=== PATIENT | male | born 1940 | race Caucasian/White ===

== ENCOUNTER → 2019-04-18 06:57 | Outpatient (CLI) | payer MEDICARE, OTHER, SELFPAY ==
[2019-04-03 08:39] VITALS: BMI 29.6
[2019-04-18 08:23] LABS: Absolute Lymphocyte Count 2.52 X10^3/uL (0.83-4.51); Absolute Neutrophil Count 3.2 X10^3/uL (2.0-7.7); Basophil# 0.06 X10^3/uL; Basophil% 0.9 % (0-1); Eosinophil# 0.19 X10^3/uL; Eosinophils% 2.8 % (0-5); Hematocrit 44.2 % (40-54); Hemoglobin 14.4 g/dL (13.0-16.5); Lymphocyte # 2.52 X10^3/ul (4.0); Lymphocyte % 37.6 % (19-41); Mean Corp Hgb Conc 32.6 g/dL (32-36); Mean Corpuscular Hgb 27.8 pg (27.0-32.0); Mean Corpuscular Volume 85.3 fL (80-94); Mean Platelet Vol. 11.8 fl (6.2-12.0); Monocyte# 0.75 X10^3/uL; Monocyte% 11.2 % (0-10); NRBC Flagged by Analyzer 0 % (0-5); Neutrophil # 3.16 X10^3/uL (2.7-7.7); Neutrophil % 47.2 % (47-70); Platelet Count 168 K/mm3 (150-450); RBC Distribution Width CV 14.7 % (11.6-14.6); RBC Distribution Width SD 46.2 fl (35.1-43.9); Red Blood Count 5.18 M/mm3 (4.6-6.2); White Blood Count 6.7 K/mm3 (4.4-11.0)
[2019-04-18 09:08] LABS: ALB/GLOB Ratio 0.7 RATIO (0.9-2.4); AST(SGOT) 17 U/L (15-37); Alanine Aminotransfer ALT/SGPT 24 U/L (16-61); Albumin, Serum 3.6 g/dL (3.2-5.0); Alkaline Phosphatase 61 U/L (45-117); Anion Gap 7 (5-15); BUN 30 mg/dL (7-18); BUN/Creat Ratio 17.4 RATIO (10-20); Calcium,Total 8.8 mg/dL (8.5-10.1); Chloride 112 mmol/L (98-107); Cholesterol 160 mg/dL (200); Creatinine, Serum 1.72 mg/dL (0.70-1.30); EST Glomerular Filtration Rate 41 mL/min (>60); Est Glom Filt Rate - Afr Amer 50 mL/min (>60); Glucose 103 mg/dL (74-106); High Density Lipoprotein 56 mg/dL; Potassium 4.3 mmol/L (3.5-5.1); Protein, Total 8.6 g/dL (6.4-8.2); Sodium Level 143 mmol/L (136-145); Triglycerides 45 mg/dL; Very Low Density Lipoprotein 9 mg/dL (5-40)
== END ==
PROVIDERS: PCP Family Medicine; Referring Provider Physician Assistant Medical; Visit Provider Physician Assistant Medical
DX: I10 Essential (primary) hypertension (principal); E78.00 Pure hypercholesterolemia, unspecified; I25.810 Atherosclerosis of coronary artery bypass graft(s) without angina pectoris
CPT/HCPCS: 36415; 80053; 80061; 85025

== ENCOUNTER 2019-07-22 13:29 | Inpatient (IN) | payer MEDICARE, OTHER, SELFPAY ==
[2019-04-03 08:39] VITALS: BMI 29.6
[2019-07-22] VITALS (19 sets, daily range): BP systolic 81–153; BP diastolic 49–80; PULSE 64–99; RESP 16–98; TEMP 37.7–42.1; O2SAT 90–98; BMI 27.4; BMI 28.1; BMI 28.2
--- NOTE | 2019-07-22 13:33 | RAD_ITS ---
STUDY: X-RAY CHEST REASON FOR EXAM: Male, 78 years old. Fever. Confusion. TECHNIQUE: Frontal view of the chest COMPARISON: 01/12/2013 FINDINGS: The lungs are clear. There are no pleural effusions. There is no pneumothorax. The heart is enlarged, but stable. There is a pacemaker in place. The patient is status post sternotomy. The visualized osseous structures are within normal limits. RAD/Chest 1 View (Portable) IMPRESSION: No acute thoracic pathology. Electronically Signed: Siddhartha Fairbanks, at 14:56 EDT Tel , Service support ,
--- NOTE | 2019-07-22 13:33 | EKG12_ITS ---
Test Reason : CONFUSION Blood Pressure : / mmHG Vent. Rate : 092 BPM Atrial Rate : 092 BPM P-R Int : 176 ms QRS Dur : 140 ms QT Int : 384 ms P-R-T Axes : 010 -51 056 degrees QTc Int : 474 ms Normal sinus rhythm with sinus arrhythmia Left axis deviation Right bundle branch block Inferior infarct , age undetermined Anterolateral infarct , age undetermined Abnormal ECG Confirmed by AMBERLY MAX, NINA ([id number]), editorial project manager WERO NI ([id number]) on 07/25/2019 10:52:34 AM Referred By: IVÁN Confirmed By:NINA GAMING MD
[2019-07-22 13:48] LABS: Absolute Lymphocyte Count 0.61 X10^3/uL (0.83-4.51); Absolute Neutrophil Count 3.9 X10^3/uL (2.0-7.7); Basophil# 0.02 X10^3/uL; Basophil% 0.4 % (0-1); Eosinophil# 0.01 X10^3/uL; Eosinophils% 0.2 % (0-5); Hematocrit 43.5 % (40-54); Lymphocyte # 0.61 X10^3/ul (4.0); Lymphocyte % 13.3 % (19-41); Mean Corp Hgb Conc 32.2 g/dL (32-36); Mean Corpuscular Hgb 28.2 pg (27.0-32.0); Mean Corpuscular Volume 87.5 fL (80-94); Mean Platelet Vol. 11.2 fl (6.2-12.0); Monocyte# 0.03 X10^3/uL; Monocyte% 0.7 % (0-10); NRBC Flagged by Analyzer 0 % (0-5); Neutrophil # 3.88 X10^3/uL (2.7-7.7); Neutrophil % 84.7 % (47-70); Platelet Count 121 K/mm3 (150-450); RBC Distribution Width CV 15.2 % (11.6-14.6); Red Blood Count 4.97 M/mm3 (4.6-6.2); White Blood Count 4.6 K/mm3 (4.4-11.0)
[2019-07-22 13:49] LABS: Mucous, Urine 0 SEEN /hpf (<or=2+); Squamous Epithelial Cells - UA 0 SEEN /hpf (0-5)
[2019-07-22] MEDS: Acetaminophen 500 MG Tablet 1000 MG PO (13:51)
[2019-07-22] MEDS: 0.9% Normal Saline 1,000 ML 250 ML IV ×2 (13:51→18:28)
--- NOTE | 2019-07-22 13:51 | ED.VIS.GEN ---
History of Present Illness Chief Complaint: Confusion Informant: Patient Onset: Today Context: Sudden Onset - since this AM Timing: Continuous Quality: disoriented Current Severity: Mild Maximum Severity: Severe Worsened by: unk Relieved by: nothing in particular Associated Symptoms: chills, malaise/gen weakness, chronic dysuria/urgency Narrative: Patient presents with disorientation that started today, found to have a fever in triage but none known prior to now. States he has been on antibiotics for about 2 weeks for urinary tract infection which he has had in the past. States he has chronic dysuria and urgency, none of that is different in the last couple weeks but he saw his doctor and was diagnosed with a UTI. States he went to the lab to have his blood drawn last week and he did not have a fever there. He denies any respiratory symptoms or sore throat, neck pain, earache, back pain. No nausea or vomiting but he did have diarrhea yesterday once or twice. History is somewhat limited since there is no one with him currently. Apparently, he has been from his for decades, but they visit with each other frequently and he did this this morning. She brought to his attention that he was disoriented and should go to the hospital, however when he got into the car, he forgot how to work it, and she does not drive. Somehow, they got themselves to the emergency department safely since he did not arrive by ambulance. We looked up his filled prescriptions here in the emergency department, it appears that he last filled the antibiotic nitrofurantoin, on 07/10/2019. - Past Medical History (1) Atherosclerosis of coronary artery bypass graft(s) without angina pectoris Status: Chronic Comment: CABG: ROBINS to LAD, SVG to diag 1, SVG to RCA 01/17/2013. (2) Essential hypertension Status: Chronic (3) ICD (implantable cardioverter-defibrillator), dual, in situ Status: Chronic (4) Ischemic cardiomyopathy Status: Chronic Comment: EF 55% 2013 (5) Old myocardial infarction Status: Chronic (6) Pure hypercholesterolemia Status: Chronic (7) TIA on medication Status: Chronic Past Medical History - Allergies and Home Meds Allergies/Adverse Reactions: Allergies Ivapqvj-Tsi-Doq Reductase Inhibitor Adverse Reaction (Verified 04/03/19 08:46) numbness, myalgias Primary Care Physician: Grayson Gentile MD [Primary Care Provider] - Surgical History: appendectomy, coronary bypass surgery Lives: Alone Smoking Status: Former smoker Drugs: None Review of Systems General: Reports: Chills, Malaise. Denies: Fever, Sweats Eyes: Denies: Visual changes - bilaterally, Diplopia ENT: Denies: Bilateral ear pain, Rhinorrhea, Sore throat Cardiovascular: Denies: Chest pain, Palpitations Respiratory: Denies: Dyspnea, Cough, Dyspnea on exertion, Orthopnea Gastrointestinal: Reports: Diarrhea. Denies: Abdominal pain, Nausea, Vomiting, Melena, Hematochezia Genitourinary: Reports: Dysuria, Hematuria - off and on, - - urgency, - - no urinary retention. Denies: Frequency Musculoskeletal: Denies: Myalgias, Neck pain, Back pain, Swelling, Extremity Pain Skin: Denies: Rash, Wounds Neurological: Denies: Headache, Weakness, Numbness Physical Exam Vital Signs/Narrative: Vital Signs Temp Pulse Resp BP Pulse Ox 07/22/19 13:46 96 22 H 135/70 H 96 07/22/19 13:35 95 07/22/19 13:30 102.7 F H 96 29 H 153/80 H 95 Inital Vital Signs reviewed: Yes General: Well nourished, Well developed, No Acute Distress Head: Normocephalic, Atraumatic Eyes: Perrl, EOMI ENT: Moist mucous membranes, No rhinorrhea, TM's clear, - - POP clear Neck: Supple, Nontender, No lymphadenopathy, No JVD Cardiovascular: Regular rate, Regular rhythm, No murmurs Respiratory: No distress, CTA bilaterally, Chest nontender Abdomen: Soft, Nontender, Nondistended, Normal bowel sounds, Ventral hernia, Hernia reducible - and nontender, non-erythemetous Back: Nontender, Normal Inspection. Negative for: CVA tenderness Extremities: Nontender, No edema. Negative for: Calf Tenderness Skin: Normal color, No rash, No Trauma Neurological: Alert - keenly. conversive., Cranial nerves II-XII grossly intact, Normal Strength, Normal Sensation, Disoriented - to month only; otherwise, oriented Psychological: Normal affect, Normal Mood Diagnostic/Tx/Re-eval Laboratory Tests 07/22/19 07/22/19 07/22/19 Range/Units 13:40 13:35 13:35 WBC 4.6 (4.4-11.0) K/mm3 RBC 4.97 (4.6-6.2) M/mm3 Hgb 14.0 (13.0-16.5) g/dL Hct 43.5 (40-54) % MCV 87.5 (80-94) fL MCH 28.2 (27.0-32.0) pg MCHC 32.2 (32-36) g/dL RDW Std Deviation 48.0 H (35.1-43.9) fl RDW Coeff of Noel 15.2 H (11.6-14.6) % Plt Count 121 L (150-450) K/mm3 MPV 11.2 (6.2-12.0) fl Immature Gran % (Auto) 0.700 (0.0-0.9) % Neut % (Auto) 84.7 H (47-70) % Lymph % (Auto) 13.3 L (19-41) % [place] % (Auto) 0.7 (0-10) % Eos % (Auto) 0.2 (0-5) % Baso % (Auto) 0.4 (0-1) % Absolute Neuts (auto) 3.9 (2.0-7.7) X10^3/uL Absolute Lymphs (auto) 0.61 L (0.83-4.51) X10^3/uL Nucleated RBC % 0 (0-5) % PT 14.5 (11.7-14.9) SECONDS INR 1.2 APTT 31.9 (24.1-36.2) Seconds Sodium (136-145) mmol/L Potassium (3.5-5.1) mmol/L Chloride (98-107) mmol/L Carbon Dioxide (21.0-32.0) mmol/L Anion Gap (5-15) BUN (7-18) mg/dL Creatinine (0.70-1.30) mg/dL Estim Creat Clear Calc ml/min Est GFR (MDRD) Af Amer (>60) mL/min Est GFR (MDRD) Non-Af (>60) mL/min BUN/Creatinine Ratio (10-20) RATIO Glucose (74-106) mg/dL Calcium (8.5-10.1) mg/dL Total Bilirubin (0.20-1.00) mg/dL AST (15-37) U/L ALT (16-61) U/L Alkaline Phosphatase (45-117) U/L Troponin I (<0.045) ng/mL Total Protein (6.4-8.2) g/dL Albumin (3.2-5.0) g/dL Globulin (2.2-4.2) g/dL Albumin/Globulin Ratio (0.9-2.4) RATIO Urine Color Red (Yellow) Urine Clarity Cloudy (Clear) Urine pH 7.0 (5.0 - 8.0) Ur Specific [place] 1.010 (1.002-1.030) Urine Protein 100 H (Negative) mg/dl Urine Glucose (UA) Normal (Normal) mg/dl Urine Ketones 5 H (Negative) mg/dl Urine Occult Blood 250 H (Negative) /ul Urine Nitrite Negative (Negative) Urine Bilirubin Negative (Negative) mg/dL Urine Urobilinogen Normal (Normal) mg/dl Ur Leukocyte Esterase 500 H (Negative) /ul Urine RBC > 100 SEEN (0-5) /hpf Urine WBC >100 SEEN (0-5) /hpf Ur Squamous Epith Cells 0 SEEN (0-5) /hpf Urine Bacteria 4+ (None Seen) /hpf Urine Mucus 0 SEEN (<or=2+) /hpf 07/22/19 Range/Units 13:35 WBC (4.4-11.0) K/mm3 RBC (4.6-6.2) M/mm3 Hgb (13.0-16.5) g/dL Hct (40-54) % MCV (80-94) fL MCH (27.0-32.0) pg MCHC (32-36) g/dL RDW Std Deviation (35.1-43.9) fl RDW Coeff of Noel (11.6-14.6) % Plt Count (150-450) K/mm3 MPV (6.2-12.0) fl Immature Gran % (Auto) (0.0-0.9) % Neut % (Auto) (47-70) % Lymph % (Auto) (19-41) % [place] % (Auto) (0-10) % Eos % (Auto) (0-5) % Baso % (Auto) (0-1) % Absolute Neuts (auto) (2.0-7.7) X10^3/uL Absolute Lymphs (auto) (0.83-4.51) X10^3/uL Nucleated RBC % (0-5) % PT (11.7-14.9) SECONDS INR APTT (24.1-36.2) Seconds Sodium 140 (136-145) mmol/L Potassium 4.0 (3.5-5.1) mmol/L Chloride 111 H (98-107) mmol/L Carbon Dioxide 22.0 (21.0-32.0) mmol/L Anion Gap 7 (5-15) BUN 19 H (7-18) mg/dL Creatinine 1.71 H (0.70-1.30) mg/dL Estim Creat Clear Calc 42.55 ml/min Est GFR (MDRD) Af Amer 50 L (>60) mL/min Est GFR (MDRD) Non-Af 41 L (>60) mL/min BUN/Creatinine Ratio 11.1 (10-20) RATIO Glucose 86 (74-106) mg/dL Calcium 8.5 (8.5-10.1) mg/dL Total Bilirubin 1.00 (0.20-1.00) mg/dL AST 17 (15-37) U/L ALT 20 (16-61) U/L Alkaline Phosphatase 70 (45-117) U/L Troponin I < 0.015 (<0.045) ng/mL Total Protein 8.7 H (6.4-8.2) g/dL Albumin 3.5 (3.2-5.0) g/dL Globulin 5.2 H (2.2-4.2) g/dL Albumin/Globulin Ratio 0.7 L (0.9-2.4) RATIO Urine Color (Yellow) Urine Clarity (Clear) Urine pH (5.0 - 8.0) Ur Specific [place] (1.002-1.030) Urine Protein (Negative) mg/dl Urine Glucose (UA) (Normal) mg/dl Urine Ketones (Negative) mg/dl Urine Occult Blood (Negative) /ul Urine Nitrite (Negative) Urine Bilirubin (Negative) mg/dL Urine Urobilinogen (Normal) mg/dl Ur Leukocyte Esterase (Negative) /ul Urine RBC (0-5) /hpf Urine WBC (0-5) /hpf Ur Squamous Epith Cells (0-5) /hpf Urine Bacteria (None Seen) /hpf Urine Mucus (<or=2+) /hpf - Rhythm Strip Rhythm Strip: Sinus Rhythm Rate: 90 Ectopy: None - EKG Initial EKG Interpretation: Sinus Rhythm, No Acute Injury Pattern, RBBB Prior: No Prior - none able to be obtained - Medical Decision Making Patient was treated with IV fluids and Tylenol. After seeing his urine which appears to be the source of his fever, it grossly appeared purulent, Rocephin is added. Blood cultures and urine cultures were sent. Since he has been on antibiotics and apparently failing them, and lives alone and is mildly delirious, plan is for admission to continue treatment and monitoring. Lactate returned within normal limits at 1.8. Chronic renal insufficiency is noted, similar creatinine that he had 4 months ago. ED Disposition - Plan for ED Patient: Disposition: Acute Care Hospital [facility] Diagnosis: Urinary tract infection, Failure of outpatient treatment, Delirium due to another medical condition, Chronic renal insufficiency, Sepsis due to urinary tract infection Referrals: Grayson Gentile MD [Primary Care Provider] -
[2019-07-22 13:54] LABS: Color, Urine Red (Yellow); Glucose, Dipstick Normal (Normal); Ketone-Dipstick 5 mg/dl (Negative); Leukocyte Esterase-Dipstick 500 /ul (Negative); Nitrite-Dipstick Negative (Negative); Occult Blood-Urine 250 /ul (Negative); Protein-Dipstick 100 mg/dl (Negative); Urine Bilirubin Dipstick Negative (Negative); Urine Clarity Cloudy (Clear); Urine Urobilinogen Normal (Normal)
[2019-07-22 13:56] LABS: International Normalized Ratio 1.2; Partial Thromboplast Time 31.9 Seconds (24.1-36.2); Prothrombin Time (Protime)PT. 14.5 SECONDS (11.7-14.9)
[2019-07-22 14:06] LABS: ALB/GLOB Ratio 0.7 RATIO (0.9-2.4); AST(SGOT) 17 U/L (15-37); Alanine Aminotransfer ALT/SGPT 20 U/L (16-61); Albumin, Serum 3.5 g/dL (3.2-5.0); Alkaline Phosphatase 70 U/L (45-117); Anion Gap 7 (5-15); BUN 19 mg/dL (7-18); BUN/Creat Ratio 11.1 RATIO (10-20); Calcium,Total 8.5 mg/dL (8.5-10.1); Chloride 111 mmol/L (98-107); Creatinine, Serum 1.71 mg/dL (0.70-1.30); EST Glomerular Filtration Rate 41 mL/min (>60); Est Glom Filt Rate - Afr Amer 50 mL/min (>60); Estimated Creatinine Clearance 42.55 ml/min; Globulin 5.2 g/dL (2.2-4.2); Glucose 86 mg/dL (74-106); Protein, Total 8.7 g/dL (6.4-8.2); Sodium Level 140 mmol/L (136-145)
[2019-07-22 14:08] LABS: White Blood Cells >100 SEEN /hpf (0-5)
[2019-07-22 14:09] LABS: Bacteria 4+ /hpf (None Seen); Red Blood Cells-Urine > 100 SEEN /hpf (0-5)
[2019-07-22 14:38] LABS: Lactic Acid 1.8 mmol/L (0.4-1.9)
--- NOTE | 2019-07-22 14:44 | HP.PCM_ITS ---
History of Present Illness Date of Admission: 07/22/19 Chief Complaint: fever, chills, The patient is a 78 year old M with an extensive past medical history as outlined which includes CAD status post CABG, hypertension and ischemic cardiomyopathy as well as hyperlipidemia. He was admitted through the ED on 07/22/2019 with a complaint of fever and chills as well as malaise and confusion. Patient says he has been having burning with urination for the past few days and so called his primary care doctor. He had nitrofurantoin called in for him and patient states he has been compliant with his medication. However on the day before presentation, patient states he became very febrile and had associated chills. He also felt very weak. He went to the house of his ex- because he was not feeling well, and she told him to come to the hospital. However when patient got into his car, he was too confused to operate his car. His ex- managed to get him to the emergency room. On arrival in the ED, his temperature was 102.7 and he was tachypneic breathing up to 29 breaths/min. Pulse rate was 96 and initial blood pressure was 153/80 though this came down to 113/67. Labs done showed creatinine of 1.71. BMP was otherwise unremarkable. CBC showed white cell count of 4.6 and urinalysis showed bacteria 4+ with WBC more than 100 and leukocyte esterase more than 500. Chest x-ray showed no acute cardiopulmonary process and EKG done showed normal sinus rhythm with sinus arrhythmia. He has been admitted to be managed for sepsis due to UTI. Urine cultures were obtained in the ED as well as blood cultures and he was started on IV ceftriaxone. [] Past Medical History Past Medical History (Chronic Problems): Chronic Problems (Last Reviewed 04/03/19 @ 09:22 by HUNTER Dumont) Chronic renal insufficiency (Chronic) Pure hypercholesterolemia (Chronic) Essential hypertension (Chronic) ICD (implantable cardioverter-defibrillator), dual, in situ (Chronic) Personal history of sudden cardiac arrest (Chronic) Old myocardial infarction (Chronic) Ischemic cardiomyopathy (Chronic) EF 55% 2013 Automatic implantable cardiac defibrillator in situ (Chronic 01/23/13) Atherosclerosis of coronary artery bypass graft(s) without angina pectoris (Chronic) CABG: ROBINS to LAD, SVG to diag 1, SVG to RCA 01/17/2013. 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 HTN (hypertension) (Inactive) I10 Allergies Ahcwlhy-Hcr-Sic Reductase Inhibitor Adverse Reaction (Verified 04/03/19 08:46) numbness, myalgias Home Medications: Ambulatory Orders Medication Instructions Recorded Aspirin [Aspirin, Baby] 81 mg PO DAILY@0800 01/10/13 carvedilol 6.25 mg tablet 6.25 mg PO BID #180 tab 04/03/19 eplerenone 25 mg tablet 25 mg PO QDAY #90 tab 04/03/19 lisinopril 5 mg tablet 5 mg PO QDAY #90 tab 04/03/19 Surgical History: Surgical History (Last Reviewed 04/03/19 @ 09:22 by HUNTER Dumont) ICD (implantable cardioverter-defibrillator), dual, in situ (Chronic) Z95.810 Hx of CABG (Resolved) Onset Date: ~01/17/13 Z95.1 CABG: ROBINS to LAD, SVG to diag 1, SVG to RCA 01/17/2013. Automatic implantable cardiac defibrillator in situ (Chronic) Onset Date: 01/23/13 Z95.810 History of left heart catheterization (LHC) Z98.890 01/11/2013 Surgical History: appendectomy, coronary bypass surgery Psychiatric History: No pertinent psych hx Lives: Alone Smoking Status: Former smoker Drugs: None Review of Systems Constitutional: Reports: Chills, Fever, Malaise, Weakness, Fatigue. Denies: Anorexia Eyes: Denies: Blurred vision HEENT: Denies: Head Aches, Sinus Congestion, Sinus Drainage Cardiovascular: Denies: Chest Pain, Palpitations Respiratory: Denies: Cough, Shortness of Breath, Shortness of breath at rest, Shortness of breath upon exertion, Sputum production Gastrointestinal: Denies: Abdominal Pain, Nausea, Vomiting Genitourinary: Reports: Dysuria, Frequency. Denies: Hesitancy, Incontinence, Nocturia, Retention, Urgency Musculoskeletal: Denies: Joint Pain, Joint Tenderness Skin: Denies: Rash, Wounds Neurological: Denies: Numbness, Tingling, Focal weakness Psychiatric: Denies: Anxiety, Depression, Homicidal Ideations, Suicidal Ideations Hematologic/ Lymphatic: Denies: Easy Bruising, Easy Bleeding VTE Information - Inpt Only VTE Present on Admission: No VTE Pharm Prophylaxis ordered?: Yes Patient Problems: Active and Suspected Problems (Last Reviewed 04/03/19 @ 09:22 by HUNTER Dumont) Urinary tract infection (Acute) Failure of outpatient treatment (Acute) Delirium due to another medical condition (Acute) Sepsis due to urinary tract infection (Acute) - Physical Exam Vitals/I&O's: Vital Signs Temp Pulse Resp BP Pulse Ox 102.7 F H 96 22 H 135/70 H 96 07/22/19 13:30 07/22/19 13:46 07/22/19 13:46 07/22/19 13:46 07/22/19 13:46 Oxygen Delivery Method Room Air Weight: 219 lb 9.286 oz Body Mass Index (BMI) 27.4 General: Alert, Oriented x3, Cooperative HEENT: Atraumatic, PERRLA, EOMI, Normocephalic Oral: Dry Mucosa Neck: Supple, No JVD, Negative Carotid Bruits Lungs: Clear to auscultation, Normal air movement, No rhonchi, No wheeze Cardiovascular: Regular rate, Regular Rhythm, Normal S1, Normal S2, No murmurs Abdomen: Bowel Sounds Present, Soft, Non Tender, Non-Distended, No Hepato- splenomegaly Extremities: No clubbing, No cyanosis, No edema, Capillary Refill Less than 3 Seconds Skin: No rashes, No breakdown Musculoskeletal: No Tenderness to Palpation of Joints or Extremities Lymphatic: No Cervical, Supraclavicular, or Inguinal Adenopathy Neurological: Cranial nerves II-XII grossly intact, Neuro grossly intact, Motor Exam 5/5 strength throughout Psych/Mental Status: Normal Affect, Appropriate, Alert and oriented to time, place, person, mood and affect Laboratory Results 07/22/19 13:35: Sodium 140, Potassium 4.0, Chloride 111 H, Carbon Dioxide 22.0, Anion Gap 7, BUN 19 H, Creatinine 1.71 H, Estim Creat Clear Calc 42.55, Est GFR (MDRD) Af Amer 50 L, Est GFR (MDRD) Non-Af 41 L, BUN/Creatinine Ratio 11.1, Glucose 86, Calcium 8.5, Total Bilirubin 1.00, AST 17, ALT 20, Alkaline Phosphatase 70, Troponin I < 0.015, Total Protein 8.7 H, Albumin 3.5, Globulin 5.2 H, Albumin/Globulin Ratio 0.7 L 07/22/19 13:35: WBC 4.6, RBC 4.97, Hgb 14.0, Hct 43.5, MCV 87.5, MCH 28.2, MCHC 32.2, RDW Std Deviation 48.0 H, RDW Coeff of Noel 15.2 H, Plt Count 121 L, MPV 11.2, Immature Gran % (Auto) 0.700, Neut % (Auto) 84.7 H, Lymph % (Auto) 13.3 L, [place] % (Auto) 0.7, Eos % (Auto) 0.2, Baso % (Auto) 0.4, Absolute Neuts (auto) 3.9, Absolute Lymphs (auto) 0.61 L, Nucleated RBC % 0 07/22/19 13:35: PT 14.5, INR 1.2, APTT 31.9 07/22/19 13:40: Urine Color Red, Urine Clarity Cloudy, Urine pH 7.0, Ur Specific [place] 1.010, Urine Protein 100 H, Urine Glucose (UA) Normal, Urine Ketones 5 H , Urine Occult Blood 250 H, Urine Nitrite Negative, Urine Bilirubin Negative, Urine Urobilinogen Normal, Ur Leukocyte Esterase 500 H, Urine RBC > 100 SEEN, Urine WBC >100 SEEN, Ur Squamous Epith Cells 0 SEEN, Urine Bacteria 4+, Urine Mucus 0 SEEN 07/22/19 13:53: Lactic Acid 1.8 Diagnostic Data Chest X-Ray 07/22/19 13:33 IMPRESSION: No acute thoracic pathology. Electronically Signed: Siddhartha Fairbanks, at 14:56 EDT Tel , Service support , Current Medications Sodium Chloride () 1,000 mls @ 250 mls/hr IV .Q4H CLAUDETTE Last Admin: 07/22/19 13:51 Dose: 250 mls/hr Documented by: Ceftriaxone Sodium (Rocephin) 1 gm in 50 mls @ 100 mls/hr IV X1 ONE Stop: 07/22/19 14:58 Assessment/Plan All Active Problems (Last Reviewed 04/03/19 @ 09:22 by HUNTER Dumont) Urinary tract infection (Acute) Failure of outpatient treatment (Acute) Delirium due to another medical condition (Acute) Sepsis due to urinary tract infection (Acute) Hx of CABG (Resolved ~01/17/13) DU (duodenal ulcer) (Resolved) TIA (transient ischemic attack) (Resolved) 89-year-old male admitted with a complaint of fever and chills and frequency of urination as well as burning. 1. Sepsis due to UTI * SIRS criteria is 2/4- fever and tachypnea * admit to PCU with telemetry * URine culture and blood culture pending * IV normal saline 150cc/hr * check serum lactic acid * started on IV ceftriaxone in the ED; will continue * 2. CAD s/p CABG: On aspirin and carvedilol. 3. Hypertension: On lisinopril, eplerenone and carvedilol. 4. CKD stage III: Creatinine is 1.71. Creatinine from earlier in March 2019 showed creatinine of 1.72. Will hydrate gently and monitor. DVT prophylaxis: Lovenox CODE STATUS: Full code * Patient counseled extensively about different types of CODE STATUS including full code, DNR CCA and DNR CCA. Patient elects to be full code. * Total [id number] time 16 minutes. Inpatient E&M: 06417 Init Hosp L3
[2019-07-22] MEDS: Ceftriaxone 1 GM/50 ML BAG IV (14:55)
--- NOTE | 2019-07-22 14:59 | NURSING ---
PCU KORAM SEPSIS DUE TO UTI, DELIRIUM, FAILURE OF OUTPT TX
[2019-07-22 17:06] LABS: Lactic Acid 1.2 mmol/L (0.4-1.9)
[2019-07-22] MEDS: Acetaminophen 325 MG Tablet 650 MG PO (19:36)
[2019-07-22] MEDS: LORazepam 2 MG/ML Syringe (21:21)
--- NOTE | 2019-07-22 21:30 | NURSING ---
Called report to [facility]
--- NOTE | 2019-07-22 21:37 | PCM.RRT.BLA ---
Rapid Response Note - Blank Rapid response: Patient with confusion; word salad; jerking movements; ripped IV out. Reportedly his temperature was 106F Patient alert but confused. vomiting S1, S2 present; tachycardia Tachypnea; LCTA Abdomen; non tender; bowel sounds present Impression: Acute Encephalopathy; Sepsis. Get stat CXR; Get KUB. Stop ceftriaxone. Start VANCO and Zosyn Transfer to ICU and put on cooling blanket CBC, BMP and lactic acid Consult construction stonemason Get COVID test
--- NOTE | 2019-07-22 22:00 | NURSING ---
Call and updated ex Corina on patient being transferred to ICU-she plans to call in am
[2019-07-22 22:36] LABS: Bedside Glucose 95 mg/dL (70-110)
[2019-07-22] MEDS: 0.9% Normal Saline 1,000 ML 1000 ML IV (22:40)
--- NOTE | 2019-07-22 22:55 | EKG12_ITS ---
Test Reason : Blood Pressure : / mmHG Vent. Rate : 086 BPM Atrial Rate : 086 BPM P-R Int : 186 ms QRS Dur : 146 ms QT Int : 380 ms P-R-T Axes : -06 -49 105 degrees QTc Int : 454 ms Normal sinus rhythm with sinus arrhythmia Left axis deviation Right bundle branch block Inferior infarct (cited on or before 10-JAN-2013) Anterolateral infarct (cited on or before 10-JAN-2013) Confirmed by AMBERLY MAX, NINA ([id number]), design editor WERO NI ([id number]) on 07/25/2019 11:41:33 AM Referred By: OWEN Confirmed By:NINA GAMING MD
--- NOTE | 2019-07-22 22:57 | RAD_ITS ---
STUDY: X-RAY - ABDOMEN/PELVIS REASON FOR EXAM: Male, 78 years old. Sepsis. Fever. UTI. TECHNIQUE: Two AP supine views of the abdomen and pelvis. COMPARISON: None. FINDINGS: There are bibasilar infiltrates. Is evidence of median sternotomy. Pacer leads are seen overlying the heart. There is an unremarkable bowel gas pattern. There is no small bowel dilatation or evidence for obstruction. Thought to be a rectal catheter. Cholecystectomy clips about the GE junction. There is no demonstrated free abdominal air. The visualized liver, spleen and kidneys are grossly normal in size and morphology. Normal soft tissue structures. There are diffuse degenerative changes of the visualized lumbar spine. RAD/Abdomen Single View (Portable) IMPRESSION: No evidence of acute intra-abdominal process. Electronically Signed: Dev Maloney DO at 23:30 EDT Tel [phone], Service support ,
--- NOTE | 2019-07-22 22:57 | RAD_ITS ---
STUDY: X-RAY CHEST REASON FOR EXAM: Male, 78 years old. Fever of 107. UTI. Sepsis. Seizure. TECHNIQUE: Single AP portable view of the chest. COMPARISON: Chest, July 22, 2019 (1404 hours) FINDINGS: There is a decreased inspiratory effort. There is infiltrate versus atelectasis at both lung bases. There is no demonstrated pleural abnormality. Stable cardiomegaly. Again seen is evidence of median sternotomy. Stable cardiac pacemaker/ICD. Normal mediastinum and ginny. Normal visualized pulmonary arteries. There is atherosclerotic calcification of the aortic arch with tortuosity. The thoracic spine is obscured by the mediastinum. There is degenerative osteoarthritis of the bilateral shoulders. There is no demonstrated abnormality of the visualized soft tissue structures of the upper abdomen. RAD/Chest 1 View (Portable) IMPRESSION: Decreased inspiratory effort with atelectasis versus infiltrate at the lung bases. The study is otherwise unchanged. Electronically Signed: Dev Maloney DO at 23:31 EDT Tel [phone], Service support ,
--- NOTE | 2019-07-22 23:05 | PCM.RX.CS ---
Consult Pharmacy has been consulted to manage selected antiobiotic: Vancomycin Type of Consult: New start Suspected Infection: Sepsis Prior Doses of Antibiotics Received/Current Regimen: Medications Vancomycin HCl 750 mg/ Sodium (Chloride) 265 mls @ 250 mls/hr IV Q12H CLAUDETTE Vancomycin HCl 1,500 mg/ (Sodium Chloride) 530 mls @ 250 mls/hr IV X1 ONE Stop: 07/23/19 00:07 Last Admin: 07/22/19 22:44 Dose: 250 mls/hr Weight used for dosin.3 kg Estimated Creatinine Clearance: 42.6 Goal Trough: 15-20 mcg/mL Pharmacy Plan for Drug Dosing: Pharmacy Service will continue to monitor and adjust dosing as required. Follow-Up Labs: Trough Vancomycin Labs to be done on [date and time ordered]: 07/24/19 @1000
[2019-07-22 23:15] LABS: Anion Gap 10 (5-15); BUN 28 mg/dL (7-18); BUN/Creat Ratio 12.6 RATIO (10-20); Calcium,Total 8.2 mg/dL (8.5-10.1); Chloride 112 mmol/L (98-107); Creatinine, Serum 2.23 mg/dL (0.70-1.30); EST Glomerular Filtration Rate 30 mL/min (>60); Est Glom Filt Rate - Afr Amer 37 mL/min (>60); Estimated Creatinine Clearance 32.63 ml/min; Glucose 109 mg/dL (74-106); Sodium Level 140 mmol/L (136-145)
[2019-07-23] VITALS (54 sets, daily range): BP systolic 71–179; BP diastolic 43–148; PULSE 60–103; RESP 12–34; TEMP 36–39.7; O2SAT 91–100
[2019-07-23 00:19] LABS: Procalcitonin 30.39 ng/mL (0.00-0.09)
[2019-07-23] MEDS: 0.9% Normal Saline 1,000 ML 1000 ML IV ×2 (01:00)
[2019-07-23] MEDS: Acetaminophen 650 MG Suppository RECTAL ×2 (02:00→17:29)
[2019-07-23 02:52] LABS: Reflex Lactate? Y
[2019-07-23 02:53] LABS: Lactic Acid 6.2 mmol/L (0.4-1.9)
--- NOTE | 2019-07-23 03:00 | CPS ---
pt dropping in the 80's on 6L NC. Pt placed on HFNC and SpO2 still in the high 80's on 15L. Pt tolerated bilevel well
[2019-07-23 03:09] LABS: Reflex Lactate? N
[2019-07-23 05:07] LABS: Absolute Lymphocyte Count 0.65 X10^3/uL (0.83-4.51); Absolute Neutrophil Count 9.9 X10^3/uL (2.0-7.7); Basophil# 0.03 X10^3/uL; Basophil% 0.3 % (0-1); Eosinophil# 0.07 X10^3/uL; Eosinophils% 0.6 % (0-5); Hematocrit 40.1 % (40-54); Hemoglobin 12.3 g/dL (13.0-16.5); Lymphocyte # 0.65 X10^3/ul (4.0); Lymphocyte % 5.9 % (19-41); Mean Corp Hgb Conc 30.7 g/dL (32-36); Mean Corpuscular Volume 91.3 fL (80-94); Mean Platelet Vol. 12.5 fl (6.2-12.0); Monocyte# 0.29 X10^3/uL; Monocyte% 2.6 % (0-10); NRBC Flagged by Analyzer 0 % (0-5); Neutrophil # 9.91 X10^3/uL (2.7-7.7); Neutrophil % 89.9 % (47-70); POSITIVE COUNT YES; POSITIVE MORPHOLOGY YES; Platelet Count 59 K/mm3 (150-450); RBC Distribution Width CV 15.5 % (11.6-14.6); RBC Distribution Width SD 51.8 fl (35.1-43.9); Red Blood Count 4.39 M/mm3 (4.6-6.2)
[2019-07-23 05:08] LABS: Differential Indicated SCAN CRITERIA MET
[2019-07-23 05:25] LABS: Anion Gap 9 (5-15); BUN 32 mg/dL (7-18); BUN/Creat Ratio 14.7 RATIO (10-20); Calcium,Total 7.5 mg/dL (8.5-10.1); Chloride 116 mmol/L (98-107); Creatinine, Serum 2.18 mg/dL (0.70-1.30); EST Glomerular Filtration Rate 31 mL/min (>60); Est Glom Filt Rate - Afr Amer 38 mL/min (>60); Estimated Creatinine Clearance 33.38 ml/min; Glucose 72 mg/dL (74-106); Potassium 3.5 mmol/L (3.5-5.1); Sodium Level 143 mmol/L (136-145)
[2019-07-23 05:28] LABS: Lactic Acid 4.4 mmol/L (0.4-1.9)
[2019-07-23 06:11] LABS: Differential Comment SCANNED; Reactive Lymphocyte RARE
[2019-07-23 07:51] LABS: M R Staph aureus DNA By PCR Negative (Negative); Probe Check PASS; Specimen Processing Control PASS
[2019-07-23] MEDS: Aspirin 300 MG Suppository RECTAL (08:09)
--- NOTE | 2019-07-23 08:41 | CON.PCM_ITS ---
Problem List (1) Urinary tract infection Status: Acute Qualifiers: Urinary tract infection type: acute pyelonephritis Qualified Code(s): N10 - Acute pyelonephritis (2) Delirium due to another medical condition Status: Acute (3) Chronic renal insufficiency Status: Chronic Qualifiers: Chronic kidney disease stage: stage 3 (moderate) Qualified Code(s): N18.3 - Chronic kidney disease, stage 3 (moderate) (4) Sepsis due to urinary tract infection Status: Acute (5) Essential hypertension Status: Chronic (6) ICD (implantable cardioverter-defibrillator), dual, in situ Status: Chronic (7) Personal history of sudden cardiac arrest Status: Chronic (8) Hx of CABG Status: Resolved Comment: CABG: ROBINS to LAD, SVG to diag 1, SVG to RCA 01/17/2013. (9) Ischemic cardiomyopathy Status: Chronic Comment: EF 55% 2013 (10) TIA on medication Status: Chronic (11) NSTEMI (non-ST elevated myocardial infarction) Status: Chronic Reason for Consult Date of Consultation: 07/23/19 Reason for Consultation: Septic shock, respiratory failure History of Present Illness: The patient is a 78 year old M, with past medical history listed below, who presented to [facility] on 07/22/2019 secondary to acute confusion in the morning. Patient reportedly had been on antibiotics for approximately 2 weeks for urinary tract infection and has chronic dysuria and urgency at baseline. Patient denied any respiratory symptoms such as sore throat, fever, chills, back pain or cough. No nausea or vomiting have been reported, but patient had been noticing loose bowel movements for the last day or 2. Patient is reportedly from his , but she was the one that had noted that he is disoriented. It is unclear, but it is assumed the patient was previously on nitrofurantoin for his UTI. In the ER, patient had an EKG showing sinus rhythm with right bundle branch block. Patient was treated with IV fluids and Tylenol and was noted to have purulent urine. Patient was given Rocephin. Pancultures were obtained. Lactate was within normal limits and creatinine was relatively unchanged compared to previous, so patient was admitted to the PCU for further evaluation. At approximately 9 PM last night, patient had significant confusion and jerking movements. Patient was noted to have a temperature of 106 ?F. Stat chest x-ray and KUB were obtained. Patient was transitioned to vancomycin and Zosyn. Patient was transferred to the intensive care unit with seizure precautions. Patient did receive Ativan for possible seizure activity. Patient also was noted to have some hypotension, but responded well to a 30 cc/kg fluid bolus. There was also some concern given his high fevers that patient may be COVID-19 positive despite lack of symptoms from a respiratory standpoint. Patient was placed in COVID precautions. This morning, patient had some significant desaturation requiring BiPAP rescue at approximately 3 AM. Patient responded to this well and saturations improved to acceptable levels on minimal BiPAP settings. Patient believes the BiPAP was helpful. Patient continues to have significant pelvic discomfort associated with the Romero catheter. Patient is not reporting any true abdominal pain, nausea or vomiting. Patient states he does not have a thermometer at home to check his temperature so he is unclear on how long this is been going on. Patient states he has had symptoms of his urinary tract infection for approximately a week from his perspective. Patient is not a very good historian, but can answer some yes and no questions. Patient was attempted off of BiPAP therapy this morning and desaturated to 75% on 4 L nasal cannula. Review of systems otherwise negative from a constitutional, HEENT, respiratory, cardiovascular, GI, genitourinary, musculoskeletal, skin, neurologic, psychiatric and hematologic system unless stated above. 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 HTN (hypertension) (Inactive) I10 Allergies Ntqzlhp-[id number]-Fkq Reductase Inhibitor Adverse Reaction (Verified 04/03/19 08:46) numbness, myalgias Home Medications: Ambulatory Orders Medication Instructions Recorded Aspirin [Aspirin, Baby] 81 mg PO DAILY@0800 01/10/13 carvedilol 6.25 mg tablet 6.25 mg PO BID #180 tab 04/03/19 eplerenone 25 mg tablet 25 mg PO QDAY #90 tab 04/03/19 lisinopril 5 mg tablet 5 mg PO QDAY #90 tab 04/03/19 Surgical History: Surgical History (Last Reviewed 04/03/19 @ 09:22 by HUNTER Dumont) ICD (implantable cardioverter-defibrillator), dual, in situ (Chronic) Z95.810 Hx of CABG (Resolved) Onset Date: ~01/17/13 Z95.1 CABG: ROBINS to LAD, SVG to diag 1, SVG to RCA 01/17/2013. Automatic implantable cardiac defibrillator in situ (Chronic) Onset Date: 01/23/13 Z95.810 History of left heart catheterization (LHC) Z98.890 01/11/2013 Surgical History: appendectomy, coronary bypass surgery Psychiatric History: No pertinent psych hx Lives: Alone Smoking Status: Former smoker Drugs: None Review of Systems Unable to obtain accurate/complete ROS d/t: See HPI Patient Problems: Active and Suspected Problems (Last Reviewed 04/03/19 @ 09:22 by HUNTER Dumont) Urinary tract infection (Acute) Failure of outpatient treatment (Acute) Delirium due to another medical condition (Acute) Sepsis due to urinary tract infection (Acute) Objective: Chest x-ray was personally reviewed and shows a possible right lower lobe infiltrate versus atelectasis. Patient's last recorded echocardiogram was in 2013 showing an EF of 55% with focal hypokinetic areas and ICD pacer. Right ventricular systolic pressure at that time was 29 mmHg. - Physical Exam Vitals/I&O's: Vital Signs Temp Pulse Resp BP Pulse Ox 36.9 C 69 20 H 86/66 L 98 07/23/19 08:00 07/23/19 08:00 07/23/19 08:00 07/23/19 08:00 07/23/19 08:00 Oxygen Flow Rate (L/min) 4 Oxygen Delivery Method Bi-pap Weight: 102.7 kg Body Mass Index (BMI) 28.1 Intake and Output for Last 24 Hours 07/21/19 07/22/19 07/23/19 23:59 23:59 23:59 Intake Total 2150 / 3150 2808 / 2808 Output Total 200 / 350 250 / 250 Balance 1950 / 2800 2558 / 2558 General: Alert, Cooperative, No apparent distress, Confused - Difficulty with more complex questions, - - Good BiPAP synchrony. HEENT: Atraumatic, PERRLA, EOMI, Normocephalic, - - No scleral icterus or injection noted Oral: No Gingival or Mucosal Lesions/ Ulcerations, Dry Mucosa Neck: Supple, No JVD, No Nodes, Trachea Midline Microbiology Past 72 Hours 07/22/19 13:53 Blood Culture (Wb) - Arm Left Blood Culture - Preliminary Laboratory Results 07/22/19 13:35: Sodium 140, Potassium 4.0, Chloride 111 H, Carbon Dioxide 22.0, Anion Gap 7, BUN 19 H, Creatinine 1.71 H, Estim Creat Clear Calc 42.55, Est GFR (MDRD) Af Amer 50 L, Est GFR (MDRD) Non-Af 41 L, BUN/Creatinine Ratio 11.1, Glucose 86, Calcium 8.5, Total Bilirubin 1.00, AST 17, ALT 20, Alkaline Phosphatase 70, Troponin I < 0.015, Total Protein 8.7 H, Albumin 3.5, Globulin 5.2 H, Albumin/Globulin Ratio 0.7 L 07/22/19 13:35: WBC 4.6, RBC 4.97, Hgb 14.0, Hct 43.5, MCV 87.5, MCH 28.2, MCHC 32.2, RDW Std Deviation 48.0 H, RDW Coeff of Noel 15.2 H, Plt Count 121 L, MPV 11.2, Immature Gran % (Auto) 0.700, Neut % (Auto) 84.7 H, Lymph % (Auto) 13.3 L, [place] % (Auto) 0.7, Eos % (Auto) 0.2, Baso % (Auto) 0.4, Absolute Neuts (auto) 3.9, Absolute Lymphs (auto) 0.61 L, Nucleated RBC % 0 07/22/19 13:35: PT 14.5, INR 1.2, APTT 31.9 07/22/19 13:40: Urine Color Red, Urine Clarity Cloudy, Urine pH 7.0, Ur Specific [place] 1.010, Urine Protein 100 H, Urine Glucose (UA) Normal, Urine Ketones 5 H , Urine Occult Blood 250 H, Urine Nitrite Negative, Urine Bilirubin Negative, Urine Urobilinogen Normal, Ur Leukocyte Esterase 500 H, Urine RBC > 100 SEEN, Urine WBC >100 SEEN, Ur Squamous Epith Cells 0 SEEN, Urine Bacteria 4+, Urine Mucus 0 SEEN 07/22/19 13:53: Lactic Acid 1.8 07/22/19 16:31: Lactic Acid 1.2 07/22/19 21:15: POC Glucose 95 07/22/19 21:53: COVID-19 (CASSIE) Pending 07/22/19 22:30: Sodium 140, Potassium 4.0, Chloride 112 H, Carbon Dioxide 18.0 L , Anion Gap 10, BUN 28 H, Creatinine 2.23 H, Estim Creat Clear Calc 32.63, Est GFR (MDRD) Af Amer 37 L, Est GFR (MDRD) Non-Af 30 L, BUN/Creatinine Ratio 12.6, Glucose 109 H, Calcium 8.2 L, Troponin I 0.297 H, C-React Prot Ext Range 69.90 H 07/22/19 22:30: Lactic Acid 4.0 H* 07/22/19 22:30: Procalcitonin 30.39 H 07/23/19 01:50: Troponin I 0.486 H 07/23/19 01:50: Lactic Acid 6.2 H* 07/23/19 04:50: WBC 11.0, RBC 4.39 L, Hgb 12.3 L, Hct 40.1, MCV 91.3, MCH 28.0, MCHC 30.7 L, RDW Std Deviation 51.8 H, RDW Coeff of Noel 15.5 H, Plt Count 59 L, MPV 12.5 H, Immature Gran % (Auto) 0.700, Neut % (Auto) 89.9 H, Lymph % (Auto) 5.9 L, [place] % (Auto) 2.6, Eos % (Auto) 0.6, Baso % (Auto) 0.3, Absolute Neuts (auto) 9.9 H, Absolute Lymphs (auto) 0.65 L, Nucleated RBC % 0, Differential Com ment SCANNED, Reactive Lymphocytes RARE 07/23/19 04:50: Sodium 143, Potassium 3.5, Chloride 116 H, Carbon Dioxide 18.0 L , Anion Gap 9, BUN 32 H, Creatinine 2.18 H, Estim Creat Clear Calc 33.38, Est GFR (MDRD) Af Amer 38 L, Est GFR (MDRD) Non-Af 31 L, BUN/Creatinine Ratio 14.7, Glucose 72 L, Calcium 7.5 L 07/23/19 04:50: Troponin I 0.596 H 07/23/19 04:50: MRSA (PCR) Negative 07/23/19 05:02: Lactic Acid 4.4 H* Current Medications Acetaminophen (Tylenol) 650 mg RECTAL Q6H PRN PRN PRN Reason: temperature > 100.7F Last Admin: 07/23/19 02:00 Dose: 650 mg Documented by: Aspirin (Aspirin) 300 mg RECTAL DAILY CLAUDETTE Last Admin: 07/23/19 08:09 Dose: 300 mg Documented by: Dextrose (D50w Syringe) 0 gm IV X1 PRN; Protocol PRN Reason: Hypoglycemia Glucagon () 1 mg IM .X1 PRN PRN Reason: Hypoglycemia Piperacillin Sod/Tazobactam (Sod 3.375 gm/ Sodium Chloride) 50 mls @ 12.5 mls/hr IV Q8@0200,1000,1800 [facility] Vancomycin IV Pharmacy to Dose (1 ea/ Sodium Chloride) 500 mls @ 250 mls/hr IV PRN PRN; Protocol PRN Reason: Rx to Dose Vancomycin HCl 750 mg/ Sodium (Chloride) 265 mls @ 250 mls/hr IV Q12H [facility] Morphine Sulfate () 2 mg IV Q3H PRN PRN PRN Reason: Pain Score 6-10/10 Ondansetron HCl (Zofran) 4 mg IV Q8H PRN PRN PRN Reason: NAUSEA/VOMITING Oxycodone HCl (Oxyir) 10 mg PO Q4H PRN PRN PRN Reason: Pain Score 4-5/10 Sodium Chloride () 10 - 40 ml IV UD PRN PRN Reason: SALINE FLUSH Assessment/Plan Active and Suspected Problems (Last Reviewed 04/03/19 @ 09:22 by HUNTER Dumont) Urinary tract infection (Acute) Failure of outpatient treatment (Acute) Delirium due to another medical condition (Acute) Sepsis due to urinary tract infection (Acute) RECOMMENDATIONS: 1. Continue BiPAP therapy for now 2. Hold on further fluid boluses. Possible need for pressors. 3. Repeat echocardiogram 4. Await COVID testing 5. Continue cooling blanket. Okay for Tylenol, but would avoid Motrin therapy given CKD 6. Agree with empiric antibiotics, possible need for CT of the abdomen and pelvis to evaluate for abscess 7. No nuchal rigidity to suggest the need for an LP IMPRESSIONS: 1. Septic shock secondary to complicated UTI with probable pyelonephritis Patient with lactate greater than 4 and high temperatures overnight. Patient did receive his 30 cc/kg fluid bolus with good response. Patient has had acceptable blood pressures to this point, but likely will not tolerate further fluid given cardiac and respiratory status. Patient may need a central line for pressors. Patient does have positive blood cultures with gram-positive and gram-negative, so would continue vancomycin for now. Pharmacy to dose given chronic kidney disease. Pro calcitonin is suggestive of a bacterial etiology. Would hold lisinopril and carvedilol in the short-term. 2. Acute hypoxic respiratory failure Patient does have a possible right lower lobe infiltrate versus atelectasis on chest x-ray. This may be secondary to an element of pulmonary edema as patient does have a cardiac history and received 30 cc/kg. Other possible etiology would include: Septic emboli, viral infection with COVID, congestive heart failure and atelectasis. Would not recommend additional fluid administration as this could worsen patient's oxygenation status. Patient does report a former smoking history, but no reported COPD at this time. Will hold off on any steroid therapy. 3. Coronary artery disease status post CABG/hypertension Echocardiogram in 2013 showed normal ejection fraction. Patient's hypoxia following fluid administration would be suggestive of possible systolic CHF. Will obtain an echocardiogram for evaluation. Minor elevation in troponin likely secondary to hypoxia and metabolic demand. No changes on telemetry to suggest ST elevation CO. 4. Chronic kidney disease stage III/advanced age/poor historian Complicates care, management, recovery and prognosis. Would hold lisinopril as patient has had a significant elevation in creatinine this morning to 2.2 from 1.7 indicating acute kidney injury. Patient is a full code. TIME: 34 minutes critical care time spent addressing patient's septic shock, acute hypoxic respiratory failure, acute on chronic kidney disease, review of all data and collaboration with care team (7:30 AM to 9 AM) [phone] [id number] Critical care first hour
--- NOTE | 2019-07-23 08:51 | ECHOD_ITS ---
Version 2 Reason For Study: DYSPNEA Procedure This was a 2D Doppler, Color Flow transthoracic echocardiogram. The exam was of poor technical quality due to decreased acoustic windows. Exam performed portable in ICU/CCU. The exam was abbreviated due to the COVID 19 protocol. Left Ventricle Normal LV size. Moderate concentric left ventricular hypertrophy. The estimated ejection fraction is 40 %. [place] : Akinetic. There is borderline global hypokinesis of the left ventricle. Mid- anteroseptal : Hypokinetic. Right Ventricle Normal RV size. ICD or pacer leads identified within the right ventricle. Normal systolic function. Atria The left atrium is mildly enlarged. Normal right atrium. Mitral Valve Bileaflet diffuse mitral valve thickening. Tricuspid Valve Normal tricuspid valve. Mild (1+) tricuspid valve insufficiency. Pulmonary artery systolic pressure is 30 mmHg. Aortic Valve Trisinus/trileaflet aortic valve. Mild (1+) eccentric aortic valve insufficiency. Pulmonic Valve The pulmonic valve is not well visualized. Great Vessels Calcified aortic root. The pulmonary artery is normal size. Normal inferior vena cava. Pericardium/Pleural No pericardial effusion. MMode/2D Measurements & Calculations LVIDd: 5.2 cm IVSd: 1.4 cm Ao root diam: 4.2 cm LVIDs: 3.8 cm LVPWd: 1.3 cm FS: 27.9 % LAV(MOD-bp): 85.2 ml LA A4 area: 21.4 cm2 LA dimension(2D): 5.3 cm LAV(MOD-bp) Indexed: 36.9 ml/m2 LAV(MOD-sp2): 103.8 ml LAV(MOD-sp4): 63.0 ml Doppler Measurements & Calculations TR max adrian: 255.7 cm/sec TR max P.5 mmHg Interpretation Summary Normal LV size. Moderate concentric left ventricular hypertrophy. The estimated ejection fraction is 40 %. [place] : Akinetic. Mild (1+) eccentric aortic valve insufficiency. Pulmonary artery systolic pressure is 30 mmHg. ICD or pacer leads identified within the right ventricle. Ordering Physician: Darian Botello Referring Physician: BRYANNA BURNETTE Performed By: Shelly Cuellar, [place], RVT
--- NOTE | 2019-07-23 10:59 | PN_ITS ---
Patient Problems: Active and Suspected Problems (Last Reviewed 04/03/19 @ 09:22 by HUNTER Dumont) Urinary tract infection (Acute) Failure of outpatient treatment (Acute) Delirium due to another medical condition (Acute) Sepsis due to urinary tract infection (Acute) Reason for Visit: UTI Subjective: Yesterday, after admission, developed a fever of 42.1, BP dropped to 81/49, oxygen requirements went up and was on BiPAP temporarily. Since then, his BP has stabilized, temp normalized, and decreased oxygen requirements to 4l/m. He denies any SOB. Vitals/I&O's: Vital Signs Temp Pulse Resp BP Pulse Ox 36.4 C L 65 19 H 91/65 99 07/23/19 10:00 07/23/19 10:00 07/23/19 10:00 07/23/19 10:00 07/23/19 10:00 Oxygen Flow Rate (L/min) 4 Oxygen Delivery Method Nasal Cannula Weight: 102.7 kg Body Mass Index (BMI) 28.1 Intake and Output for Last 24 Hours 07/21/19 07/22/19 07/23/19 23:59 23:59 23:59 Intake Total 2150 / 3150 3073 / 3073 Output Total 200 / 350 250 / 250 Balance 1950 / 2800 2823 / 2823 General: Alert, No apparent distress HEENT: Atraumatic, Normocephalic Oral: Moist Mucosa, No Gingival or Mucosal Lesions/ Ulcerations Neck: No Nodes, Trachea Midline Lungs: Diminished, - - bibasilar crackles Cardiovascular: Regular rate, Regular Rhythm, Normal S1, Normal S2 Abdomen: Bowel Sounds Present, Soft, Non Tender, Non-Distended Extremities: No edema, No Calf Tenderness Skin: No rashes, No breakdown Musculoskeletal: No Tenderness to Palpation of Joints or Extremities, No Muscle Wasting Psych/Mental Status: Normal Affect, Appropriate Microbiology Past 72 Hours 07/22/19 13:53 Blood Culture (Wb) - Arm Left Blood Culture - Preliminary Laboratory Results 07/22/19 13:35: Sodium 140, Potassium 4.0, Chloride 111 H, Carbon Dioxide 22.0, Anion Gap 7, BUN 19 H, Creatinine 1.71 H, Estim Creat Clear Calc 42.55, Est GFR (MDRD) Af Amer 50 L, Est GFR (MDRD) Non-Af 41 L, BUN/Creatinine Ratio 11.1, Glucose 86, Calcium 8.5, Total Bilirubin 1.00, AST 17, ALT 20, Alkaline Phosphatase 70, Troponin I < 0.015, Total Protein 8.7 H, Albumin 3.5, Globulin 5.2 H, Albumin/Globulin Ratio 0.7 L 07/22/19 13:35: WBC 4.6, RBC 4.97, Hgb 14.0, Hct 43.5, MCV 87.5, MCH 28.2, MCHC 32.2, RDW Std Deviation 48.0 H, RDW Coeff of Noel 15.2 H, Plt Count 121 L, MPV 11.2, Immature Gran % (Auto) 0.700, Neut % (Auto) 84.7 H, Lymph % (Auto) 13.3 L, [place] % (Auto) 0.7, Eos % (Auto) 0.2, Baso % (Auto) 0.4, Absolute Neuts (auto) 3.9, Absolute Lymphs (auto) 0.61 L, Nucleated RBC % 0 07/22/19 13:35: PT 14.5, INR 1.2, APTT 31.9 07/22/19 13:40: Urine Color Red, Urine Clarity Cloudy, Urine pH 7.0, Ur Specific [place] 1.010, Urine Protein 100 H, Urine Glucose (UA) Normal, Urine Ketones 5 H , Urine Occult Blood 250 H, Urine Nitrite Negative, Urine Bilirubin Negative, Urine Urobilinogen Normal, Ur Leukocyte Esterase 500 H, Urine RBC > 100 SEEN, Urine WBC >100 SEEN, Ur Squamous Epith Cells 0 SEEN, Urine Bacteria 4+, Urine Mucus 0 SEEN 07/22/19 13:53: Lactic Acid 1.8 07/22/19 16:31: Lactic Acid 1.2 07/22/19 21:15: POC Glucose 95 07/22/19 21:53: COVID-19 (CASSIE) Pending 07/22/19 22:30: Sodium 140, Potassium 4.0, Chloride 112 H, Carbon Dioxide 18.0 L , Anion Gap 10, BUN 28 H, Creatinine 2.23 H, Estim Creat Clear Calc 32.63, Est GFR (MDRD) Af Amer 37 L, Est GFR (MDRD) Non-Af 30 L, BUN/Creatinine Ratio 12.6, Glucose 109 H, Calcium 8.2 L, Troponin I 0.297 H, C-React Prot Ext Range 69.90 H 07/22/19 22:30: Lactic Acid 4.0 H* 07/22/19 22:30: Procalcitonin 30.39 H 07/23/19 01:50: Troponin I 0.486 H 07/23/19 01:50: Lactic Acid 6.2 H* 07/23/19 04:50: WBC 11.0, RBC 4.39 L, Hgb 12.3 L, Hct 40.1, MCV 91.3, MCH 28.0, MCHC 30.7 L, RDW Std Deviation 51.8 H, RDW Coeff of Noel 15.5 H, Plt Count 59 L, MPV 12.5 H, Immature Gran % (Auto) 0.700, Neut % (Auto) 89.9 H, Lymph % (Auto) 5.9 L, [place] % (Auto) 2.6, Eos % (Auto) 0.6, Baso % (Auto) 0.3, Absolute Neuts (auto) 9.9 H, Absolute Lymphs (auto) 0.65 L, Nucleated RBC % 0, Differential Comment SCANNED, Reactive Lymphocytes RARE 07/23/19 04:50: Sodium 143, Potassium 3.5, Chloride 116 H, Carbon Dioxide 18.0 L , Anion Gap 9, BUN 32 H, Creatinine 2.18 H, Estim Creat Clear Calc 33.38, Est GFR (MDRD) Af Amer 38 L, Est GFR (MDRD) Non-Af 31 L, BUN/Creatinine Ratio 14.7, Glucose 72 L, Calcium 7.5 L 07/23/19 04:50: Troponin I 0.596 H 07/23/19 04:50: MRSA (PCR) Negative 07/23/19 05:02: Lactic Acid 4.4 H* Current Medications Acetaminophen (Tylenol) 650 mg RECTAL Q6H PRN PRN PRN Reason: temperature > 100.7F Last Admin: 07/23/19 02:00 Dose: 650 mg Documented by: Aspirin (Aspirin) 300 mg RECTAL DAILY CLAUDETTE Last Admin: 07/23/19 08:09 Dose: 300 mg Documented by: Dextrose (D50w Syringe) 0 gm IV X1 PRN; Protocol PRN Reason: Hypoglycemia Glucagon () 1 mg IM .X1 PRN PRN Reason: Hypoglycemia Piperacillin Sod/Tazobactam (Sod 3.375 gm/ Sodium Chloride) 50 mls @ 12.5 mls/hr IV Q8@0200,1000,1800 [facility] Last Admin: 07/23/19 10:30 Dose: 12.5 mls/hr Documented by: Vancomycin IV Pharmacy to Dose (1 ea/ Sodium Chloride) 500 mls @ 250 mls/hr IV PRN PRN; Protocol PRN Reason: Rx to Dose Vancomycin HCl 750 mg/ Sodium (Chloride) 265 mls @ 250 mls/hr IV Q12H [facility] Last Infusion: 07/23/19 10:30 Dose: Infused Documented by: Insulin Human Lispro (Humalog Kwikpen (Bkc)) 0 unit SC Q6 [facility]; Protocol Morphine Sulfate () 2 mg IV Q3H PRN PRN PRN Reason: Pain Score 6-10/10 Ondansetron HCl (Zofran) 4 mg IV Q8H PRN PRN PRN Reason: NAUSEA/VOMITING Oxycodone HCl (Oxyir) 10 mg PO Q4H PRN PRN PRN Reason: Pain Score 4-5/10 Sodium Chloride () 10 - 40 ml IV UD PRN PRN Reason: SALINE FLUSH STROKE Vital Signs/Narrative: Vital Signs Temp Pulse Resp BP Pulse Ox 07/23/19 10:00 36.4 C L 65 19 H 91/65 99 07/23/19 09:00 66 17 93/56 L 99 07/23/19 08:00 36.9 C 69 20 H 86/66 L 98 07/23/19 07:21 70 07/23/19 07:00 66 18 89/54 L 91 Medical Necessity - Tobacco Use Smoking Status: Former smoker Assessment/Plan All Active Problems (Last Reviewed 04/03/19 @ 09:22 by HUNTER Dumont) Urinary tract infection (Acute) Failure of outpatient treatment (Acute) Delirium due to another medical condition (Acute) Sepsis due to urinary tract infection (Acute) Hx of CABG (Resolved ~01/17/13) DU (duodenal ulcer) (Resolved) TIA (transient ischemic attack) (Resolved) 1. septic shock * 2/2 UTI/pyelo bacteremia * responded to 30cc/kg of IVF * BCx showing gram negative rods * COVID-19 pending, but low likelihood given known UTI and bacteremia * on pip/tazo and vanc, adjust abx according to culture results. * extremely high temp (42.1). No on any medications that could cause NMS/SSS, etc. On cooling blanket 2. UTI * on pip/tazo 3. acute hypoxic respiratory failure * PNA v ATX * wean oxygen as tolerated 4. NSTEMI * trop peaked at 0.596 * suspect demand ischemia from above * on ASA * echo ordered 5. KEILY * monitor * recheck * hold IVF for now 6. VTE proph: enoxaparin Inpatient E&M: [id number] Subs Hosp L2
[2019-07-23] MEDS: 0.9% Saline Lock 10 ML Syringe IV (11:01)
[2019-07-23] MEDS: Dextrose 50%-Water 25 GM/50 ML DISP.SYRIN IV ×2 (11:01→11:20)
[2019-07-23 12:11] LABS: Bedside Glucose 44 mg/dL (70-110)
[2019-07-23 12:11] LABS: Bedside Glucose 68 mg/dL (70-110)
[2019-07-23 12:11] LABS: Bedside Glucose 79 mg/dL (70-110)
[2019-07-23] MEDS: Dextrose 5%/0.9% NaCl 1,000 ML 30 ML IV (12:27)
[2019-07-23 14:06] LABS: Bedside Glucose 106 mg/dL (70-110)
[2019-07-23] MEDS: TITRATION PARAMETER CHANGE 1 EACH IV (17:29)
[2019-07-23 18:35] LABS: Bedside Glucose 72 mg/dL (70-110)
--- NOTE | 2019-07-23 22:50 | CPS ---
FiO2 reduced to 21%, pt tolerating BiPAP well
[2019-07-24] VITALS (43 sets, daily range): BP systolic 89–138; BP diastolic 53–96; PULSE 60–102; RESP 12–83; TEMP 36.6–38.8; O2SAT 91–99
[2019-07-24 02:30] LABS: Bedside Glucose 71 mg/dL (70-110)
[2019-07-24] MEDS: Acetaminophen 325 MG Tablet 650 MG PO ×2 (03:05→18:06)
[2019-07-24 03:30] LABS: Absolute Lymphocyte Count 0.99 X10^3/uL (0.83-4.51); Absolute Neutrophil Count 9.3 X10^3/uL (2.0-7.7); Basophil# 0.04 X10^3/uL; Basophil% 0.4 % (0-1); Eosinophil# 0.02 X10^3/uL; Eosinophils% 0.2 % (0-5); Hematocrit 39.2 % (40-54); Hemoglobin 12.6 g/dL (13.0-16.5); Lymphocyte # 0.99 X10^3/ul (4.0); Mean Corp Hgb Conc 32.1 g/dL (32-36); Mean Corpuscular Hgb 28.7 pg (27.0-32.0); Mean Corpuscular Volume 89.3 fL (80-94); Mean Platelet Vol. 11.9 fl (6.2-12.0); Monocyte% 3.6 % (0-10); NRBC Flagged by Analyzer 0 % (0-5); Neutrophil % 84.8 % (47-70); POSITIVE COUNT YES; POSITIVE MORPHOLOGY YES; RBC Distribution Width CV 15.9 % (11.6-14.6); RBC Distribution Width SD 51.9 fl (35.1-43.9); Red Blood Count 4.39 M/mm3 (4.6-6.2)
[2019-07-24 03:31] LABS: Differential Indicated SCAN CRITERIA MET; Platelet Count 50 K/mm3 (150-450)
[2019-07-24 03:42] LABS: Anion Gap 7 (5-15); BUN 37 mg/dL (7-18); BUN/Creat Ratio 19.4 RATIO (10-20); Calcium,Total 7.5 mg/dL (8.5-10.1); Chloride 115 mmol/L (98-107); Creatinine, Serum 1.91 mg/dL (0.70-1.30); EST Glomerular Filtration Rate 36 mL/min (>60); Est Glom Filt Rate - Afr Amer 44 mL/min (>60); Glucose 114 mg/dL (74-106); Potassium 4.5 mmol/L (3.5-5.1); Sodium Level 143 mmol/L (136-145)
[2019-07-24 04:12] LABS: Differential Comment SCANNED; Platelet Estimate MKD DEC (ADEQ)
--- NOTE | 2019-07-24 06:27 | PN_ITS ---
Subjective: The patient was seen and examined at the bedside this morning. Events from the last 24 hours have been reviewed. The patient was febrile overnight with a T- max of 101.7 ?F. The patient remains hemodynamically stable on Levophed at 2 mcg/min. He is maintaining appropriate oxygen saturations on room air. Platelet count is low at 50,000. Creatinine has improved to 1.9. The patient is currently documented to be overall net +5.1 L for the hospital admission. COVID testing is pending. Objective: The patient's most recent lab work, culture data and imaging studies have all been personally reviewed. Blood culture dated July 22 was positive for gram- positive cocci and gram-negative rods. Preliminary urine Gram stain was positive for gram-negative stevie. General: Alert, Cooperative, No apparent distress HEENT: Atraumatic, Normocephalic Oral: Moist Mucosa, No Gingival or Mucosal Lesions/ Ulcerations Neck: Supple, No Nodes, Trachea Midline Lungs: No rhonchi, No wheeze, No rales, Diminished Cardiovascular: Regular rate, Regular Rhythm, Normal S1, Normal S2 Abdomen: Bowel Sounds Present, Soft, Non Tender Extremities: No clubbing, No cyanosis Skin: No breakdown Musculoskeletal: No Tenderness to Palpation of Joints or Extremities Lymphatic: No Cervical, Supraclavicular, or Inguinal Adenopathy Neurological: Neuro grossly intact Psych/Mental Status: Normal Affect, Appropriate Vital Signs Temp Pulse Resp BP Pulse Ox 98.9 F 78 24 H 99/61 96 07/24/19 06:00 07/24/19 06:00 07/24/19 06:00 07/24/19 06:00 07/24/19 06:00 Oxygen Flow Rate (L/min) 21 Oxygen Delivery Method Room Air Weight: 231 lb 7.766 oz Body Mass Index (BMI) 28.1 Intake and Output for Last 24 Hours 07/22/19 07/23/19 07/24/19 23:59 23:59 23:59 Intake Total 2150 / 3150 3736.90 / 3738.78 966.58 / 966.58 Output Total 200 / 350 750 / 1100 750 / 750 Balance 1950 / 2800 2986.90 / 2638.78 216.58 / 216.58 Labs (Last 48 Hours) 07/22/19 07/22/19 07/22/19 13:35 13:35 13:35 WBC 4.6 RBC 4.97 Hgb 14.0 Hct 43.5 MCV 87.5 MCH 28.2 MCHC 32.2 RDW Std Deviation 48.0 H RDW Coeff of Noel 15.2 H Plt Count 121 L MPV 11.2 Immature Gran % (Auto) 0.700 Neut % (Auto) 84.7 H Lymph % (Auto) 13.3 L [place] % (Auto) 0.7 Eos % (Auto) 0.2 Baso % (Auto) 0.4 Absolute Neuts (auto) 3.9 Absolute Lymphs (auto) 0.61 L Nucleated RBC % 0 Differential Comment Diff Path Review Reactive Lymphocytes Platelet Estimate PT 14.5 INR 1.2 APTT 31.9 Sodium 140 Potassium 4.0 Chloride 111 H Carbon Dioxide 22.0 Anion Gap 7 BUN 19 H Creatinine 1.71 H Estim Creat Clear Calc 42.55 Est GFR (MDRD) Af Amer 50 L Est GFR (MDRD) Non-Af 41 L BUN/Creatinine Ratio 11.1 Glucose 86 Lactic Acid Calcium 8.5 Total Bilirubin 1.00 AST 17 ALT 20 Alkaline Phosphatase 70 Troponin I < 0.015 C-React Prot Ext Range Total Protein 8.7 H Albumin 3.5 Globulin 5.2 H Albumin/Globulin Ratio 0.7 L Procalcitonin Urine Color Urine Clarity Urine pH Ur Specific [place] Urine Protein Urine Glucose (UA) Urine Ketones Urine Occult Blood Urine Nitrite Urine Bilirubin Urine Urobilinogen Ur Leukocyte Esterase Urine RBC Urine WBC Ur Squamous Epith Cells Urine Bacteria Urine Mucus COVID-19 (CASSIE) MRSA (PCR) POC Glucose 07/22/19 07/22/19 07/22/19 13:40 13:53 16:31 WBC RBC Hgb Hct MCV MCH MCHC RDW Std Deviation RDW Coeff of Noel Plt Count MPV Immature Gran % (Auto) Neut % (Auto) Lymph % (Auto) [place] % (Auto) Eos % (Auto) Baso % (Auto) Absolute Neuts (auto) Absolute Lymphs (auto) Nucleated RBC % Differential Comment Diff Path Review Reactive Lymphocytes Platelet Estimate PT INR APTT Sodium Potassium Chloride Carbon Dioxide Anion Gap BUN Creatinine Estim Creat Clear Calc Est GFR (MDRD) Af Amer Est GFR (MDRD) Non-Af BUN/Creatinine Ratio Glucose Lactic Acid 1.8 1.2 Calcium Total Bilirubin AST ALT Alkaline Phosphatase Troponin I C-React Prot Ext Range Total Protein Albumin Globulin Albumin/Globulin Ratio Procalcitonin Urine Color Red Urine Clarity Cloudy Urine pH 7.0 Ur Specific [place] 1.010 Urine Protein 100 H Urine Glucose (UA) Normal Urine Ketones 5 H Urine Occult Blood 250 H Urine Nitrite Negative Urine Bilirubin Negative Urine Urobilinogen Normal Ur Leukocyte Esterase 500 H Urine RBC > 100 SEEN Urine WBC >100 SEEN Ur Squamous Epith Cells 0 SEEN Urine Bacteria 4+ Urine Mucus 0 SEEN COVID-19 (CASSIE) MRSA (PCR) POC Glucose 07/22/19 07/22/19 07/22/19 21:15 21:53 22:30 WBC RBC Hgb Hct MCV MCH MCHC RDW Std Deviation RDW Coeff of Noel Plt Count MPV Immature Gran % (Auto) Neut % (Auto) Lymph % (Auto) [place] % (Auto) Eos % (Auto) Baso % (Auto) Absolute Neuts (auto) Absolute Lymphs (auto) Nucleated RBC % Differential Comment Diff Path Review Reactive Lymphocytes Platelet Estimate PT INR APTT Sodium 140 Potassium 4.0 Chloride 112 H Carbon Dioxide 18.0 L Anion Gap 10 BUN 28 H Creatinine 2.23 H Estim Creat Clear Calc 32.63 Est GFR (MDRD) Af Amer 37 L Est GFR (MDRD) Non-Af 30 L BUN/Creatinine Ratio 12.6 Glucose 109 H Lactic Acid Calcium 8.2 L Total Bilirubin AST ALT Alkaline Phosphatase Troponin I 0.297 H C-React Prot Ext Range 69.90 H Total Protein Albumin Globulin Albumin/Globulin Ratio Procalcitonin Urine Color Urine Clarity Urine pH Ur Specific [place] Urine Protein Urine Glucose (UA) Urine Ketones Urine Occult Blood Urine Nitrite Urine Bilirubin Urine Urobilinogen Ur Leukocyte Esterase Urine RBC Urine WBC Ur Squamous Epith Cells Urine Bacteria Urine Mucus COVID-19 (CASSIE) Pending MRSA (PCR) POC Glucose 95 07/22/19 07/22/19 07/23/19 22:30 22:30 01:50 WBC RBC Hgb Hct MCV MCH MCHC RDW Std Deviation RDW Coeff of Noel Plt Count MPV Immature Gran % (Auto) Neut % (Auto) Lymph % (Auto) [place] % (Auto) Eos % (Auto) Baso % (Auto) Absolute Neuts (auto) Absolute Lymphs (auto) Nucleated RBC % Differential Comment Diff Path Review Reactive Lymphocytes Platelet Estimate PT INR APTT Sodium Potassium Chloride Carbon Dioxide Anion Gap BUN Creatinine Estim Creat Clear Calc Est GFR (MDRD) Af Amer Est GFR (MDRD) Non-Af BUN/Creatinine Ratio Glucose Lactic Acid 4.0 H* Calcium Total Bilirubin AST ALT Alkaline Phosphatase Troponin I 0.486 H C-React Prot Ext Range Total Protein Albumin Globulin Albumin/Globulin Ratio Procalcitonin 30.39 H Urine Color Urine Clarity Urine pH Ur Specific [place] Urine Protein Urine Glucose (UA) Urine Ketones Urine Occult Blood Urine Nitrite Urine Bilirubin Urine Urobilinogen Ur Leukocyte Esterase Urine RBC Urine WBC Ur Squamous Epith Cells Urine Bacteria Urine Mucus COVID-19 (CASSIE) MRSA (PCR) POC Glucose 07/23/19 07/23/19 07/23/19 01:50 04:50 04:50 WBC 11.0 RBC 4.39 L Hgb 12.3 L Hct 40.1 MCV 91.3 MCH 28.0 MCHC 30.7 L RDW Std Deviation 51.8 H RDW Coeff of Noel 15.5 H Plt Count 59 L MPV 12.5 H Immature Gran % (Auto) 0.700 Neut % (Auto) 89.9 H Lymph % (Auto) 5.9 L [place] % (Auto) 2.6 Eos % (Auto) 0.6 Baso % (Auto) 0.3 Absolute Neuts (auto) 9.9 H Absolute Lymphs (auto) 0.65 L Nucleated RBC % 0 Differential Comment SCANNED Diff Path Review Reactive Lymphocytes RARE Platelet Estimate PT INR APTT Sodium 143 Potassium 3.5 Chloride 116 H Carbon Dioxide 18.0 L Anion Gap 9 BUN 32 H Creatinine 2.18 H Estim Creat Clear Calc 33.38 Est GFR (MDRD) Af Amer 38 L Est GFR (MDRD) Non-Af 31 L BUN/Creatinine Ratio 14.7 Glucose 72 L Lactic Acid 6.2 H* Calcium 7.5 L Total Bilirubin AST ALT Alkaline Phosphatase Troponin I C-React Prot Ext Range Total Protein Albumin Globulin Albumin/Globulin Ratio Procalcitonin Urine Color Urine Clarity Urine pH Ur Specific [place] Urine Protein Urine Glucose (UA) Urine Ketones Urine Occult Blood Urine Nitrite Urine Bilirubin Urine Urobilinogen Ur Leukocyte Esterase Urine RBC Urine WBC Ur Squamous Epith Cells Urine Bacteria Urine Mucus COVID-19 (CASSIE) MRSA (PCR) POC Glucose 07/23/19 07/23/19 07/23/19 04:50 04:50 05:02 WBC RBC Hgb Hct MCV MCH MCHC RDW Std Deviation RDW Coeff of Noel Plt Count MPV Immature Gran % (Auto) Neut % (Auto) Lymph % (Auto) [place] % (Auto) Eos % (Auto) Baso % (Auto) Absolute Neuts (auto) Absolute Lymphs (auto) Nucleated RBC % Differential Comment Diff Path Review Reactive Lymphocytes Platelet Estimate PT INR APTT Sodium Potassium Chloride Carbon Dioxide Anion Gap BUN Creatinine Estim Creat Clear Calc Est GFR (MDRD) Af Amer Est GFR (MDRD) Non-Af BUN/Creatinine Ratio Glucose Lactic Acid 4.4 H* Calcium Total Bilirubin AST ALT Alkaline Phosphatase Troponin I 0.596 H C-React Prot Ext Range Total Protein Albumin Globulin Albumin/Globulin Ratio Procalcitonin Urine Color Urine Clarity Urine pH Ur Specific [place] Urine Protein Urine Glucose (UA) Urine Ketones Urine Occult Blood Urine Nitrite Urine Bilirubin Urine Urobilinogen Ur Leukocyte Esterase Urine RBC Urine WBC Ur Squamous Epith Cells Urine Bacteria Urine Mucus COVID-19 (CASSIE) MRSA (PCR) Negative POC Glucose 07/23/19 07/23/19 07/23/19 10:52 11:13 11:30 WBC RBC Hgb Hct MCV MCH MCHC RDW Std Deviation RDW Coeff of Noel Plt Count MPV Immature Gran % (Auto) Neut % (Auto) Lymph % (Auto) [place] % (Auto) Eos % (Auto) Baso % (Auto) Absolute Neuts (auto) Absolute Lymphs (auto) Nucleated RBC % Differential Comment Diff Path Review Reactive Lymphocytes Platelet Estimate PT INR APTT Sodium Potassium Chloride Carbon Dioxide Anion Gap BUN Creatinine Estim Creat Clear Calc Est GFR (MDRD) Af Amer Est GFR (MDRD) Non-Af BUN/Creatinine Ratio Glucose Lactic Acid Calcium Total Bilirubin AST ALT Alkaline Phosphatase Troponin I C-React Prot Ext Range Total Protein Albumin Globulin Albumin/Globulin Ratio Procalcitonin Urine Color Urine Clarity Urine pH Ur Specific [place] Urine Protein Urine Glucose (UA) Urine Ketones Urine Occult Blood Urine Nitrite Urine Bilirubin Urine Urobilinogen Ur Leukocyte Esterase Urine RBC Urine WBC Ur Squamous Epith Cells Urine Bacteria Urine Mucus COVID-19 (CASSIE) MRSA (PCR) POC Glucose 44 L* 68 L 79 07/23/19 07/23/19 07/24/19 13:23 17:25 00:43 WBC RBC Hgb Hct MCV MCH MCHC RDW Std Deviation RDW Coeff of Noel Plt Count MPV Immature Gran % (Auto) Neut % (Auto) Lymph % (Auto) [place] % (Auto) Eos % (Auto) Baso % (Auto) Absolute Neuts (auto) Absolute Lymphs (auto) Nucleated RBC % Differential Comment Diff Path Review Reactive Lymphocytes Platelet Estimate PT INR APTT Sodium Potassium Chloride Carbon Dioxide Anion Gap BUN Creatinine Estim Creat Clear Calc Est GFR (MDRD) Af Amer Est GFR (MDRD) Non-Af BUN/Creatinine Ratio Glucose Lactic Acid Calcium Total Bilirubin AST ALT Alkaline Phosphatase Troponin I C-React Prot Ext Range Total Protein Albumin Globulin Albumin/Globulin Ratio Procalcitonin Urine Color Urine Clarity Urine pH Ur Specific [place] Urine Protein Urine Glucose (UA) Urine Ketones Urine Occult Blood Urine Nitrite Urine Bilirubin Urine Urobilinogen Ur Leukocyte Esterase Urine RBC Urine WBC Ur Squamous Epith Cells Urine Bacteria Urine Mucus COVID-19 (CASSIE) MRSA (PCR) POC Glucose 106 72 71 07/24/19 07/24/19 03:15 03:15 WBC 11.0 RBC 4.39 L Hgb 12.6 L Hct 39.2 L MCV 89.3 MCH 28.7 MCHC 32.1 RDW Std Deviation 51.9 H RDW Coeff of Noel 15.9 H Plt Count 50 L* MPV 11.9 Immature Gran % (Auto) 2.000 H Neut % (Auto) 84.8 H Lymph % (Auto) 9.0 L [place] % (Auto) 3.6 Eos % (Auto) 0.2 Baso % (Auto) 0.4 Absolute Neuts (auto) 9.3 H Absolute Lymphs (auto) 0.99 Nucleated RBC % 0 Differential Comment SCANNED Diff Path Review May foll Reactive Lymphocytes Platelet Estimate MKD DEC PT INR APTT Sodium 143 Potassium 4.5 Chloride 115 H Carbon Dioxide 21.0 Anion Gap 7 BUN 37 H Creatinine 1.91 H Estim Creat Clear Calc 38.10 Est GFR (MDRD) Af Amer 44 L Est GFR (MDRD) Non-Af 36 L BUN/Creatinine Ratio 19.4 Glucose 114 H Lactic Acid Calcium 7.5 L Total Bilirubin AST ALT Alkaline Phosphatase Troponin I C-React Prot Ext Range Total Protein Albumin Globulin Albumin/Globulin Ratio Procalcitonin Urine Color Urine Clarity Urine pH Ur Specific [place] Urine Protein Urine Glucose (UA) Urine Ketones Urine Occult Blood Urine Nitrite Urine Bilirubin Urine Urobilinogen Ur Leukocyte Esterase Urine RBC Urine WBC Ur Squamous Epith Cells Urine Bacteria Urine Mucus COVID-19 (CASSIE) MRSA (PCR) POC Glucose Microbiology 07/22/19 13:40 Urine, Clean Catch Urine Culture - Preliminary Gram negative stevie 07/22/19 13:53 Blood Culture (Wb) - Arm Left Blood Culture - Preliminary Clinical Impression(s) from Imaging Studies Chest X-Ray 07/22/19 13:33 IMPRESSION: No acute thoracic pathology. Electronically Signed: Siddhartha Fairbanks, at 14:56 EDT Tel , Service support , Chest X-Ray 07/22/19 22:57 IMPRESSION: Decreased inspiratory effort with atelectasis versus infiltrate at the lung bases. The study is otherwise unchanged. Electronically Signed: Dev Maloney DO at 23:31 EDT Tel [phone], Service support , KUB X-Ray 07/22/19 22:57 IMPRESSION: No evidence of acute intra-abdominal process. 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 Continue broad-spectrum antimicrobials. 2. Wean Levophed to maintain a mean arterial pressure at or above 65 mmHg. 3. Continue appropriate ICU prophylaxis 4. Encourage incentive spirometer use and mobilize patient as tolerated. 5. Await COVID testing. IMPRESSIONS: 1. Septic shock secondary to complicated urinary tract infection with probable pyelonephritis Improving. The patient did receive adequate volume resuscitation. Plan to continue to wean vasopressor support to maintain a mean arterial pressure at or above 65 mmHg. Continue empiric antimicrobials, pending infectious work-up. 2. Acute hypoxemic respiratory failure Patient does have a possible right lower lobe infiltrate versus atelectasis on c hest x-ray. This may be secondary to an element of pulmonary edema as patient does have a cardiac history and received 30 cc/kg. Other possible etiology would include: Septic emboli, viral infection with COVID, congestive heart failure and atelectasis. At this time, the patient has been weaned to room air. Plan to encourage incentive spirometer utilization. Mobilize patient as tolerated. 3. Coronary artery disease status post CABG/hypertension Echocardiogram in 2013 showed normal ejection fraction. Minor elevation in troponin likely secondary to hypoxia and metabolic demand. 4. Chronic kidney disease/advanced age/poor historian Complicates care, management, recovery and prognosis. TIME: 35 minutes of critical care time, independent of procedures, was spent addressing the patient's septic shock, respiratory failure, coronary artery disease, review of all data and collaboration with the care team. ([id number]) [phone]: [id number] Critical care first hour
[2019-07-24 06:50] LABS: Bedside Glucose 91 mg/dL (70-110)
[2019-07-24] MEDS: Enoxaparin 30 MG/0.3 ML Syringe SC (08:34)
[2019-07-24] MEDS: Aspirin 81 MG TAB.CHEW PO (08:35)
[2019-07-24] MEDS: 0.9% Saline Lock 10 ML Syringe IV (10:10)
[2019-07-24 11:19] LABS: Pathologist Review Reviewed
--- NOTE | 2019-07-24 11:24 | CASEMGMT ---
RN NIGEL Assessment Note Presentation: Sepsis due to UTI, COVID pending. Intro role of CM to patient via phone. Pt is awake, alert in ICU, RA currently, no oxygen use.. Lives alone, independent with ambulation, driving, ADL's. 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 Plan is to return home on discharge. Ex checks on pt if needed, and drove him to hospital for admission. -If COVID positive, will speak with pt re: home needs. Is currently living alone and anticipate ex can assist with groceries, getting prescriptions if needed. PCP: Dr. Gentile Specialists: Dr. Aldrich,cardiology Preferred Pharmacy: [facility], [employer] [place]. (pt usually goes to [facility] as it is close to where he works. RICKY MANNING discussed if pt would like to have new prescriptions filled locally on dc for convenience and pt would. Changed in computer to [facility]) Insurance: [facility], MMO Prescription Benefit: yes LNOK : ex Living Arrangements: Lives alone in mobile home. 4 steps into home. Independent with ADLs, laundry, shopping. Transportation: drives DME: Hand held shower. No home oxygen, cpap or bipap. HHC: none Patient DC goals: Home DC PLAN: anticipate Home. PT/OT evals recommend pt needs further therapy. Will continue to follow for recommended LOC on dc. May need Home oxygen testing if need for oxygen continues. Yara WALDENN RN ACM
[2019-07-24 11:51] LABS: Bedside Glucose 80 mg/dL (70-110)
--- NOTE | 2019-07-24 13:11 | NURSING ---
1200 turned cooling blanket back on
[2019-07-24 16:46] LABS: Bedside Glucose 83 mg/dL (70-110)
[2019-07-24] MEDS: Dextrose 5%/0.9% NaCl 1,000 ML 30 ML IV (17:51)
[2019-07-24 23:39] LABS: Vancomycin, Trough Level 13.2 ug/mL (5.0-15.0)
[2019-07-25] VITALS (13 sets, daily range): BP systolic 85–126; BP diastolic 69–78; PULSE 66–86; RESP 14–24; TEMP 36.9–38; O2SAT 94–98
[2019-07-25 01:16] LABS: Bedside Glucose 90 mg/dL (70-110)
--- NOTE | 2019-07-25 01:18 | PCM.RX.CS ---
Consult Pharmacy has been consulted to manage selected antiobiotic: Vancomycin Type of Consult: Follow-up Suspected Infection: Sepsis Prior Doses of Antibiotics Received/Current Regimen: Medications Vancomycin HCl (Vancomycin) 1,000 mg in 200 mls @ 200 mls/hr IV Q12H CLAUDETTE Discontinued Medications Vancomycin HCl 750 mg/ Sodium (Chloride) 265 mls @ 250 mls/hr IV Q12H CLAUDETTE Last Admin: 07/25/19 00:16 Dose: Infused Labs: Sodium 143 mmol/L (136-145) 07/24/19 03:15 Potassium 4.5 mmol/L (3.5-5.1) 07/24/19 03:15 Chloride 115 mmol/L (98-107) H 07/24/19 03:15 Carbon Dioxide 21.0 mmol/L (21.0-32.0) 07/24/19 03:15 Anion Gap 7 (5-15) 07/24/19 03:15 BUN 37 mg/dL (7-18) H 07/24/19 03:15 Creatinine 1.91 mg/dL (0.70-1.30) H 07/24/19 03:15 Est GFR (MDRD) Af Amer 44 mL/min (>60) L 07/24/19 03:15 Est GFR (MDRD) Non-Af 36 mL/min (>60) L 07/24/19 03:15 BUN/Creatinine Ratio 19.4 RATIO (10-20) 07/24/19 03:15 Glucose 114 mg/dL (74-106) H 07/24/19 03:15 Vancomycin Trough 13.2 ug/mL (5.0-15.0) 07/24/19 22:16 Microbiology: Microbiology 07/22/19 13:53 Blood Culture (Wb) - Arm Left Blood Culture - Preliminary Klebsiella oxytoca 07/22/19 13:35 Blood Culture (Wb) - Right Forearm Blood Culture - Preliminary No growth in 48 hours. 07/22/19 13:40 Urine, Clean Catch Urine Culture - Final Klebsiella oxytoca Weight used for dosin kg Estimated Creatinine Clearance: 38 Goal Trough: 15-20 mcg/mL Pharmacy Plan for Drug Dosing: Vancomycin trough level of 13.2 was below target range of 15-20. Will increase dose to 1000mg q12h and re-draw trough prior to 4th dose of new regimen. Pharmacy Service will continue to monitor and adjust dosing as required. Follow-Up Labs: Trough Vancomycin Labs to be done on [date and time ordered]: 07/26/19 @[id number]
[2019-07-25] MEDS: Acetaminophen 325 MG Tablet 650 MG PO (05:08)
[2019-07-25 05:19] LABS: Absolute Lymphocyte Count 0.83 X10^3/uL (0.83-4.51); Absolute Neutrophil Count 7.2 X10^3/uL (2.0-7.7); Basophil# 0.05 X10^3/uL; Basophil% 0.6 % (0-1); Eosinophil# 0.02 X10^3/uL; Eosinophils% 0.2 % (0-5); Hematocrit 39.4 % (40-54); Hemoglobin 12.7 g/dL (13.0-16.5); Lymphocyte # 0.83 X10^3/ul (4.0); Lymphocyte % 9.5 % (19-41); Mean Corp Hgb Conc 32.2 g/dL (32-36); Mean Corpuscular Hgb 28.3 pg (27.0-32.0); Mean Corpuscular Volume 87.8 fL (80-94); Monocyte# 0.48 X10^3/uL; Monocyte% 5.5 % (0-10); NRBC Flagged by Analyzer 0 % (0-5); Neutrophil # 7.23 X10^3/uL (2.7-7.7); Neutrophil % 82.5 % (47-70); POSITIVE COUNT YES; POSITIVE MORPHOLOGY YES; RBC Distribution Width CV 15.9 % (11.6-14.6); RBC Distribution Width SD 50.4 fl (35.1-43.9); Red Blood Count 4.49 M/mm3 (4.6-6.2); White Blood Count 8.8 K/mm3 (4.4-11.0)
[2019-07-25 05:25] LABS: Differential Indicated SCAN CRITERIA MET; Platelet Count 49 K/mm3 (150-450)
[2019-07-25 05:30] LABS: Anion Gap 6 (5-15); BUN 35 mg/dL (7-18); BUN/Creat Ratio 19.4 RATIO (10-20); Calcium,Total 8.2 mg/dL (8.5-10.1); Chloride 114 mmol/L (98-107); EST Glomerular Filtration Rate 39 mL/min (>60); Est Glom Filt Rate - Afr Amer 47 mL/min (>60); Estimated Creatinine Clearance 40.42 ml/min; Glucose 103 mg/dL (74-106); Potassium 3.7 mmol/L (3.5-5.1); Sodium Level 142 mmol/L (136-145)
[2019-07-25 05:58] LABS: Crenated RBC 1+; Platelet Estimate MKD DEC (ADEQ)
[2019-07-25 06:00] LABS: Reactive Lymphocyte RARE
--- NOTE | 2019-07-25 06:12 | PCM.PN.INT ---
Subjective: The patient was seen and examined at the bedside this morning. Events from the last 24 hours have been reviewed. The patient is currently febrile with a T-max of 101.9 ?F over the last 24 hours. Platelet count remains low at 49,000. Creatinine has improved to 1.8. The patient continues to maintain appropriate oxygen saturations on room air. COVID testing was negative. The patient has been off of vasopressor support now for 24 hours. Objective: The patient's most recent lab work, culture data and imaging studies have all been personally reviewed. Both blood and urine cultures dated July 21 were positive for Klebsiella oxytoca General: Alert, No apparent distress HEENT: Atraumatic, Normocephalic Oral: No Gingival or Mucosal Lesions/ Ulcerations Neck: Supple, No Nodes, Trachea Midline Lungs: No rhonchi, No rales, Diminished Cardiovascular: Regular rate, Regular Rhythm, Normal S1, Normal S2, No murmurs Abdomen: Bowel Sounds Present, Soft, Non Tender Extremities: No clubbing, No cyanosis, No edema Skin: No breakdown Musculoskeletal: No Muscle Wasting Lymphatic: No Cervical, Supraclavicular, or Inguinal Adenopathy Neurological: Neuro grossly intact Psych/Mental Status: Normal Affect, Appropriate Vital Signs Temp Pulse Resp BP Pulse Ox 99.8 F H 80 14 107/74 98 07/25/19 06:00 07/25/19 06:00 07/25/19 06:00 07/25/19 06:00 07/25/19 06:00 Oxygen Flow Rate (L/min) 21 Oxygen Delivery Method Room Air Weight: 231 lb 7.766 oz Body Mass Index (BMI) 28.1 Intake and Output for Last 24 Hours 07/23/19 07/24/19 07/25/19 23:59 23:59 23:59 Intake Total 3736.90 / 3738.78 2175.18 / 2375.18 465 / 465 Output Total 750 / 1100 1450 / 1750 300 / 300 Balance 2986.90 / 2638.78 725.18 / 625.18 165 / 165 Labs (Last 48 Hours) 07/22/19 07/23/19 07/23/19 21:53 04:50 10:52 WBC RBC Hgb Hct MCV MCH MCHC RDW Std Deviation RDW Coeff of Noel Plt Count MPV Immature Gran % (Auto) Neut % (Auto) Lymph % (Auto) [place] % (Auto) Eos % (Auto) Baso % (Auto) Absolute Neuts (auto) Absolute Lymphs (auto) Nucleated RBC % Differential Comment Diff Path Review Reactive Lymphocytes Platelet Estimate Crenated Cell Sodium Potassium Chloride Carbon Dioxide Anion Gap BUN Creatinine Estim Creat Clear Calc Est GFR (MDRD) Af Amer Est GFR (MDRD) Non-Af BUN/Creatinine Ratio Glucose Calcium Vancomycin Trough COVID-19 (CASSIE) Not Detected MRSA (PCR) Negative POC Glucose 44 L* 07/23/19 07/23/19 07/23/19 11:13 11:30 13:23 WBC RBC Hgb Hct MCV MCH MCHC RDW Std Deviation RDW Coeff of Noel Plt Count MPV Immature Gran % (Auto) Neut % (Auto) Lymph % (Auto) [place] % (Auto) Eos % (Auto) Baso % (Auto) Absolute Neuts (auto) Absolute Lymphs (auto) Nucleated RBC % Differential Comment Diff Path Review Reactive Lymphocytes Platelet Estimate Crenated Cell Sodium Potassium Chloride Carbon Dioxide Anion Gap BUN Creatinine Estim Creat Clear Calc Est GFR (MDRD) Af Amer Est GFR (MDRD) Non-Af BUN/Creatinine Ratio Glucose Calcium Vancomycin Trough COVID-19 (CASSIE) MRSA (PCR) POC Glucose 68 L 79 106 07/23/19 07/24/19 07/24/19 17:25 00:43 03:15 WBC 11.0 RBC 4.39 L Hgb 12.6 L Hct 39.2 L MCV 89.3 MCH 28.7 MCHC 32.1 RDW Std Deviation 51.9 H RDW Coeff of Noel 15.9 H Plt Count 50 L* MPV 11.9 Immature Gran % (Auto) 2.000 H Neut % (Auto) 84.8 H Lymph % (Auto) 9.0 L [place] % (Auto) 3.6 Eos % (Auto) 0.2 Baso % (Auto) 0.4 Absolute Neuts (auto) 9.3 H Absolute Lymphs (auto) 0.99 Nucleated RBC % 0 Differential Comment SCANNED Diff Path Review Reviewed Reactive Lymphocytes Platelet Estimate MKD DEC Crenated Cell Sodium Potassium Chloride Carbon Dioxide Anion Gap BUN Creatinine Estim Creat Clear Calc Est GFR (MDRD) Af Amer Est GFR (MDRD) Non-Af BUN/Creatinine Ratio Glucose Calcium Vancomycin Trough COVID-19 (CASSIE) MRSA (PCR) POC Glucose 72 71 07/24/19 07/24/19 07/24/19 03:15 05:33 11:37 WBC RBC Hgb Hct MCV MCH MCHC RDW Std Deviation RDW Coeff of Noel Plt Count MPV Immature Gran % (Auto) Neut % (Auto) Lymph % (Auto) [place] % (Auto) Eos % (Auto) Baso % (Auto) Absolute Neuts (auto) Absolute Lymphs (auto) Nucleated RBC % Differential Comment Diff Path Review Reactive Lymphocytes Platelet Estimate Crenated Cell Sodium 143 Potassium 4.5 Chloride 115 H Carbon Dioxide 21.0 Anion Gap 7 BUN 37 H Creatinine 1.91 H Estim Creat Clear Calc 38.10 Est GFR (MDRD) Af Amer 44 L Est GFR (MDRD) Non-Af 36 L BUN/Creatinine Ratio 19.4 Glucose 114 H Calcium 7.5 L Vancomycin Trough COVID-19 (CASSIE) MRSA (PCR) POC Glucose 91 80 07/24/19 07/24/19 07/24/19 16:39 22:16 23:05 WBC RBC Hgb Hct MCV MCH MCHC RDW Std Deviation RDW Coeff of Noel Plt Count MPV Immature Gran % (Auto) Neut % (Auto) Lymph % (Auto) [place] % (Auto) Eos % (Auto) Baso % (Auto) Absolute Neuts (auto) Absolute Lymphs (auto) Nucleated RBC % Differential Comment Diff Path Review Reactive Lymphocytes Platelet Estimate Crenated Cell Sodium Potassium Chloride Carbon Dioxide Anion Gap BUN Creatinine Estim Creat Clear Calc Est GFR (MDRD) Af Amer Est GFR (MDRD) Non-Af BUN/Creatinine Ratio Glucose Calcium Vancomycin Trough 13.2 COVID-19 (CASSIE) MRSA (PCR) POC Glucose 83 90 07/25/19 07/25/19 05:00 05:00 WBC 8.8 RBC 4.49 L Hgb 12.7 L Hct 39.4 L MCV 87.8 MCH 28.3 MCHC 32.2 RDW Std Deviation 50.4 H RDW Coeff of Noel 15.9 H Plt Count 49 L* MPV Immature Gran % (Auto) 1.700 H Neut % (Auto) 82.5 H Lymph % (Auto) 9.5 L [place] % (Auto) 5.5 Eos % (Auto) 0.2 Baso % (Auto) 0.6 Absolute Neuts (auto) 7.2 Absolute Lymphs (auto) 0.83 Nucleated RBC % 0 Differential Comment Diff Path Review Reactive Lymphocytes RARE Platelet Estimate MKD DEC Crenated Cell 1+ Sodium 142 Potassium 3.7 Chloride 114 H Carbon Dioxide 22.0 Anion Gap 6 BUN 35 H Creatinine 1.80 H Estim Creat Clear Calc 40.42 Est GFR (MDRD) Af Amer 47 L Est GFR (MDRD) Non-Af 39 L BUN/Creatinine Ratio 19.4 Glucose 103 Calcium 8.2 L Vancomycin Trough COVID-19 (CASSIE) MRSA (PCR) POC Glucose Microbiology 07/22/19 13:53 Blood Culture (Wb) - Arm Left Blood Culture - Preliminary Klebsiella oxytoca 07/22/19 13:35 Blood Culture (Wb) - Right Forearm Blood Culture - Preliminary No growth in 48 hours. 07/22/19 13:40 Urine, Clean Catch Urine Culture - Final Klebsiella oxytoca Clinical Impression(s) from Imaging Studies Chest X-Ray 07/22/19 13:33 IMPRESSION: No acute thoracic pathology. Electronically Signed: Siddhartha Fairbanks at 14:56 EDT Tel , Service support , Chest X-Ray 07/22/19 22:57 IMPRESSION: Decreased inspiratory effort with atelectasis versus infiltrate at the lung bases. The study is otherwise unchanged. Electronically Signed: Dev Maloney DO at 23:31 EDT Tel [phone], Service support , KUB X-Ray 07/22/19 22:57 IMPRESSION: No evidence of acute intra-abdominal process. Electronically Signed: Dev Maloney DO at 23:30 EDT Tel [phone], Service support , Medical Necessity - Tobacco Use Smoking Status: Former smoker Assessment/Plan All Active Problems (Last Reviewed 07/26/19 @ 08:[address] 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 Discontinue vancomycin and Zosyn. Transition patient to ceftriaxone, based upon cultures and sensitivities. 2. Discontinue supplemental IV fluids. 3. Continue appropriate ICU prophylaxis. 4. Encourage incentive spirometer use and mobilize patient as tolerated. 5. The patient is medically stable for transfer out of the intensive care unit. 6. Given the patient's lack of further ICU or pulmonary needs, will sign off. Please call with any additional questions. IMPRESSIONS: 1. Septic shock secondary to complicated urinary tract infection with probable pyelonephritis Improving. The patient did receive adequate volume resuscitation. The patient has been weaned from vasopressor support at this time and remains hemodynamically stable. Continue antimicrobials as ordered. 2. Acute hypoxemic respiratory failure Resolved. Patient does have a possible right lower lobe infiltrate versus atelectasis on chest x-ray. This may be secondary to an element of pulmonary edema as patient does have a cardiac history and received 30 cc/kg. Other possible etiology would include: Septic emboli, viral infection with COVID, congestive heart failure and atelectasis. At this time, the patient has been weaned to room air. Plan to encourage incentive spirometer utilization. Mobilize patient as tolerated. 3. Coronary artery disease status post CABG/hypertension Echocardiogram in 2013 showed normal ejection fraction. Minor elevation in troponin likely secondary to hypoxia and metabolic demand. 4. Chronic kidney disease/advanced age/poor historian Complicates care, management, recovery and prognosis. This note was generated with [employer] dictation software. It may contain incorrect words, spelling, and punctuation that were not noted in checking the note before signing. Inpatient E&M: 6[address] [facility] Hosp L3
[2019-07-25 09:29] LABS: Pathologist Review Reviewed
[2019-07-25] MEDS: Aspirin 81 MG TAB.CHEW PO (11:34)
[2019-07-25] MEDS: Enoxaparin 30 MG/0.3 ML Syringe SC (11:35)
--- NOTE | 2019-07-25 12:16 | PCM.PN.HOSP ---
Patient Problems: Active and Suspected Problems (Last Reviewed 04/03/19 @ 09:22 by HUNTER Dumont) Urinary tract infection (Acute) Failure of outpatient treatment (Acute) Delirium due to another medical condition (Acute) Sepsis due to urinary tract infection (Acute) Reason for Visit: Patient still has low-grade temperature, T-max 100.4. Heart rate is controlled. Currently pulse ox 98% on room air. Has Romero catheter, clear urine. Objective: Patient denies burning micturition, increased frequency or urgency before admission but these symptoms are mentioned in H&P Vitals/I&O's: Vital Signs Temp Pulse Resp BP Pulse Ox 99.8 F H 77 14 107/74 98 07/25/19 06:00 07/25/19 07:46 07/25/19 06:00 07/25/19 06:00 07/25/19 06:00 Oxygen Flow Rate (L/min) 21 Oxygen Delivery Method Room Air Weight: 232 lb 12.93 oz Body Mass Index (BMI) 28.1 Intake and Output for Last 24 Hours 07/23/19 07/24/19 07/25/19 23:59 23:59 23:59 Intake Total 3736.90 / 3738.78 2175.18 / 2375.18 465 / 465 Output Total 750 / 1100 1450 / 1750 850 / 850 Balance 2986.90 / 2638.78 725.18 / 625.18 -385 / -385 General: Alert, Oriented x3, Cooperative HEENT: Atraumatic, PERRLA, EOMI, Normocephalic Neck: Supple, No JVD, Negative Carotid Bruits Lungs: Clear to auscultation, No rhonchi, No wheeze, No rales, Diminished Cardiovascular: Regular rate, Regular Rhythm, Normal S1, Normal S2, No murmurs Abdomen: Bowel Sounds Present, Soft, Non Tender, Non-Distended Extremities: No edema, Capillary Refill Less than 3 Seconds Skin: No rashes, No breakdown Musculoskeletal: No Tenderness to Palpation of Joints or Extremities, Arthritic Changes Neurological: Cranial nerves II-XII grossly intact, Deep Tendon Reflexes 2+/4 and Symmetrical, Neuro grossly intact Psych/Mental Status: Normal Affect, Appropriate Microbiology Past 72 Hours 07/22/19 13:53 Blood Culture (Wb) - Arm Left Blood Culture - Final Klebsiella oxytoca 07/22/19 13:35 Blood Culture (Wb) - Right Forearm Blood Culture - Preliminary No growth in 48 hours. 07/22/19 13:40 Urine, Clean Catch Urine Culture - Final Klebsiella oxytoca Laboratory Results 07/22/19 21:53: COVID-19 (CASSIE) Not Detected 07/24/19 16:39: POC Glucose 83 07/24/19 22:16: Vancomycin Trough 13.2 07/24/19 23:05: POC Glucose 90 07/25/19 05:00: WBC 8.8, RBC 4.49 L, Hgb 12.7 L, Hct 39.4 L, MCV 87.8, MCH 28.3, MCHC 32.2, RDW Std Deviation 50.4 H, RDW Coeff of Noel 15.9 H, Plt Count 49 L*, Immature Gran % (Auto) 1.700 H, Neut % (Auto) 82.5 H, Lymph % (Auto) 9.5 L, [place] % (Auto) 5.5, Eos % (Auto) 0.2, Baso % (Auto) 0.6, Absolute Neuts (auto) 7.2, Absolute Lymphs (auto) 0.83, Nucleated RBC % 0, Diff Path Review Reviewed, Reactive Lymphocytes RARE, Platelet Estimate MKD DEC, Crenated Cell 1+ 07/25/19 05:00: Sodium 142, Potassium 3.7, Chloride 114 H, Carbon Dioxide 22.0, Anion Gap 6, BUN 35 H, Creatinine 1.80 H, Estim Creat Clear Calc 40.42, Est GFR (MDRD) Af Amer 47 L, Est GFR (MDRD) Non-Af 39 L, BUN/Creatinine Ratio 19.4, Glucose 103, Calcium 8.2 L Current Medications Acetaminophen (Tylenol) 650 mg PO Q6H PRN PRN PRN Reason: Temp > 100.7F Last Admin: 07/25/19 05:08 Dose: 650 mg Documented by: Aspirin (Aspirin, Baby) 81 mg PO DAILY@1000 CLAUDETTE Last Admin: 07/25/19 11:34 Dose: 81 mg Documented by: Dextrose (D50w Syringe) 0 gm IV X1 PRN; Protocol PRN Reason: Hypoglycemia Last Admin: 07/23/19 11:20 Dose: 12.5 gm Documented by: Enoxaparin Sodium (Lovenox) 30 mg SC DAILY CLAUDETTE Last Admin: 07/25/19 11:35 Dose: 30 mg Documented by: Glucagon () 1 mg IM .X1 PRN PRN Reason: Hypoglycemia Ceftriaxone Sodium 2 gm/ (Sodium Chloride) 50 mls @ 100 mls/hr IV Q24 [facility] Last Admin: 07/25/19 11:35 Dose: 100 mls/hr Documented by: Insulin Human Lispro (Humalog Kwikpen (Bkc)) 0 unit SC Q6 [facility]; Protocol Last Admin: 07/25/19 11:36 Dose: Not Given Documented by: Ondansetron HCl (Zofran) 4 mg IV Q8H PRN PRN PRN Reason: NAUSEA/VOMITING Oxycodone HCl (Oxyir) 10 mg PO Q4H PRN PRN PRN Reason: Pain Score 4-5/10 Sodium Chloride () 10 - 40 ml IV UD PRN PRN Reason: SALINE FLUSH Last Admin: 07/24/19 10:10 Dose: 10 ml Documented by: Medical Necessity - Tobacco Use Smoking Status: Former smoker Assessment/Plan All Active Problems (Last Reviewed 04/03/19 @ 09:22 by HUNTER Dumont) Urinary tract infection (Acute) Failure of outpatient treatment (Acute) Delirium due to another medical condition (Acute) Sepsis due to urinary tract infection (Acute) Hx of CABG (Resolved ~01/17/13) DU (duodenal ulcer) (Resolved) TIA (transient ischemic attack) (Resolved) This is 78 year old gentleman with history of hypertension came to ER with fever and chills, increased frequency and burning micturition as per H&P. Patient was found to be in septic shock and had high temperature 42.1 ?C therefore started on cooling blanket with admitting diagnosis of septic shock secondary to UTI/bacteremia 1. Septic shock secondary to complicated Klebsiella oxytoca UTI with bacteremia with possibility of pyelonephritis: Patient blood pressure is 107/74. Initially patient was started on IV vancomycin and Zosyn which is narrowed down to ceftriaxone as per urine and blood culture sensitivity. Blood culture and urine culture grew shows Klebsiella oxytoca. Patient was on Levophed at 1 time which is discontinued. 2. Acute hypoxic respiratory failure: Chest x-ray showed right lower lobe infiltrate versus atelectasis. COVID negative. On room air. Hypoxemia resolved 3. KEILY: creatinine up from 1.7-2. 2 3 and currently improving. Last one 1.8. Patient has Romero catheter. 4. Elevated troponin mostly secondary demand ischemia. Coronary artery status post CABG and hypertension: troponin peaked to 0.654. 2D echo shows EF 75% with PASP of 60. On Lovenox 30 mg subcu daily. 5. VTE prophylaxis: Admission Patient is being transferred to PCU. Inpatient E&M: 31690 Subs Hosp L2
[2019-07-25 14:05] LABS: Bedside Glucose 128 mg/dL (70-110)
[2019-07-25 17:40] LABS: Bedside Glucose 95 mg/dL (70-110)
[2019-07-26 00:21] LABS: Bedside Glucose 106 mg/dL (70-110)
[2019-07-26 03:03] VITALS: PULSE 71
[2019-07-26 03:29] VITALS: BP 121/68; PULSE 75; RESP 24; TEMP 37.2; O2SAT 94
[2019-07-26 07:05] LABS: Bedside Glucose 94 mg/dL (70-110)
[2019-07-26 07:30] VITALS: O2SAT 96
[2019-07-26 07:33] VITALS: PULSE 74
--- NOTE | 2019-07-26 08:12 | CT_ITS ---
STUDY: CT ABDOMEN AND PELVIS WITHOUT CONTRAST REASON FOR EXAM: Male, 78 years old. Bacteremia, septic due to UTI, klebsiella UTI. Hx hypertension, diabetes, prior appendectomy, enlarged prostate. RADIATION DOSAGE (If Supplied By Facility): CTDIvol = ( 16.92 ) mGy, DLP = ( 963.89 ) mGycm TECHNIQUE: Transaxial images were obtained from the dome of the diaphragm to the symphysis pubis without oral contrast, and without intravenous contrast. Sagittal and coronal images were reconstructed. Individualized dose optimization techniques were used for this CT. COMPARISON: Comparison is made with prior examination dated July 21, 2011. FINDINGS: Mild increased markings at the lung bases suggestive of mild scarring and/or atelectasis. The dual-chamber pacemaker is seen. Cardiomegaly. Normal liver. Normal gallbladder and extrahepatic biliary system. Borderline splenomegaly. Normal pancreas. There is a small, circumscribed, smooth, low attenuation left adrenal mass, consistent with an adrenal adenoma. This measures 1 cm. This is unchanged. Normal right adrenal gland. Dominant cyst in the lower pole of the right kidney measuring 7.4 cm x 6.3 cm. There is a 3 mm nonobstructive calculus in the lower pole calyx of the left kidney. Several cysts are seen in the left kidney the largest measures 4.7 cm x 4 cm. This is in the inferior lateral aspect of the kidney. Mild degree of nonspecific bilateral perinephric stranding. Normal visualized stomach. Normal small intestine. There are multiple colonic diverticula consistent with diverticulosis. The patient is status post appendectomy. There is scattered atherosclerotic calcification of the abdominal aorta, without a demonstrated aneurysm. Normal inferior vena cava. Normal retroperitoneum. The urinary bladder is distended. Diffuse mild degree of bladder wall thickening. There is a 2.9 cm x 2.1 cm diverticulum in the anterior aspect of the bladder. Small amount of air is seen along the anterior aspect of the bladder is likely secondary to recent Romero catheter insertion. If there has not been fully his surgeon, a colovesical fistula should be ruled out. There is enlargement of the prostate gland. This measures 6.3 size by 6.4 cm. Central calcifications are seen. There is indentation at the bladder base. A bladder mass cannot be excluded. Correlation with the cystoscopy is recommended. Normal abdominal wall. There are diffuse degenerative changes of the visualized lumbar spine. CT/Abdomen/Pelvis without Cont IMPRESSION: Stable bilateral renal cysts. Enlargement of the prostate with indentation on the bladder base and possible soft tissue density within the bladder base. Small amount of air is seen within the anterior bladder. Diffusely thickened urinary bladder. Nonobstructive left intrarenal calculus. Electronically Signed: Jey Claire, at 9:44 EDT , Service support ,
[2019-07-26 08:45] LABS: ALB/GLOB Ratio 0.5 RATIO (0.9-2.4); AST(SGOT) 55 U/L (15-37); Alanine Aminotransfer ALT/SGPT 54 U/L (16-61); Albumin, Serum 2.4 g/dL (3.2-5.0); Alkaline Phosphatase 83 U/L (45-117); Anion Gap 9 (5-15); BUN 28 mg/dL (7-18); BUN/Creat Ratio 19.2 RATIO (10-20); Calcium,Total 8.1 mg/dL (8.5-10.1); Chloride 115 mmol/L (98-107); Creatinine, Serum 1.46 mg/dL (0.70-1.30); EST Glomerular Filtration Rate 50 mL/min (>60); Est Glom Filt Rate - Afr Amer 60 mL/min (>60); Estimated Creatinine Clearance 49.84 ml/min; Globulin 4.7 g/dL (2.2-4.2); Glucose 94 mg/dL (74-106); Potassium 3.4 mmol/L (3.5-5.1); Protein, Total 7.1 g/dL (6.4-8.2); Sodium Level 145 mmol/L (136-145)
--- NOTE | 2019-07-26 08:50 | CON.PCM_ITS ---
Problem List (1) BPH with obstruction/lower urinary tract symptoms Status: Acute (2) BPH with obstruction/lower urinary tract symptoms Status: Acute Reason for Consult Date of Consultation: 07/26/19 Reason for Consultation: BPH and urinary obstruction History of Present Illness: The patient is a 78 year old male who is in the intensive care unit with an infection, had bacteremia and septic shock and UTI, he is out of the intensive care unit now onto the floor has been having difficulty with urination and Flomax has been started in discussion with the hospitalist think imaging of the prostate and bladder and kidney with a CAT scan will be reasonable to evaluate for the cause of the sepsis and the infection. 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 Chest pain (Chronic) TIA on medication (Chronic) NSTEMI (non-ST elevated myocardial infarction) (Chronic) Triple vessel coronary artery disease (Chronic) Medical History: Medical History (Last Reviewed 07/26/19 @ 08:[address] 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 HTN (hypertension) (Inactive) I10 Allergies Uojoqqo-Zpn-Zgo Reductase Inhibitor Adverse Reaction (Verified 04/03/19 08:46) numbness, myalgias Home Medications: Ambulatory Orders Medication Instructions Recorded Aspirin [Aspirin, Baby] 81 mg PO DAILY@0800 01/10/13 carvedilol 6.25 mg tablet 6.25 mg PO BID #180 tab 04/03/19 eplerenone 25 mg tablet 25 mg PO QDAY #90 tab 04/03/19 lisinopril 5 mg tablet 5 mg PO QDAY #90 tab 04/03/19 Ciprofloxacin [Cipro] 500 mg PO BID #14 tab 07/26/19 Tamsulosin HCl [Flomax] 0.4 mg PO DAILY #30 cap 07/26/19 Surgical History: Surgical History (Last Reviewed 07/26/19 @ 08:[address] Waqar Guerrero MD) ICD (implantable cardioverter-defibrillator), dual, in situ (Chronic) Z95.810 Hx of CABG (Resolved) Onset Date: ~01/17/13 Z95.1 CABG: ROBINS to LAD, SVG to diag 1, SVG to RCA 01/17/2013. Automatic implantable cardiac defibrillator in situ (Chronic) Onset Date: 01/23/13 Z95.810 History of left heart catheterization (LHC) Z98.890 01/11/2013 Surgical History: appendectomy, coronary bypass surgery Psychiatric History: No pertinent psych hx Lives: Alone Smoking Status: Former smoker Tobacco Use: Non-smoker Alcohol: None Drugs: None Review of Systems Constitutional: Denies: Chills, Fever, Weight Change HEENT: Denies: Head Aches, Sinus Congestion, Sinus Drainage Cardiovascular: Denies: Chest Pain, Palpitations Respiratory: Denies: Cough, Shortness of breath at rest, Sputum production Gastrointestinal: Denies: Abdominal Pain, Nausea, Vomiting Genitourinary: Reports: Incontinence, Retention. Denies: Dysuria Musculoskeletal: Denies: Joint Pain, Joint Tenderness Skin: Denies: Rash, Wounds Neurological: Denies: Numbness, Tingling, Focal weakness Psychiatric: Denies: Anxiety, Depression, Homicidal Ideations, Suicidal Ideations Hematologic/ Lymphatic: Denies: Easy Bruising, Easy Bleeding Physical Exam - Physical Exam Vital Signs Temp 99.0 F 07/26/19 03:29 Pulse 75 07/26/19 03:29 Resp 24 H 07/26/19 03:29 BP 121/68 H 07/26/19 03:29 Pulse Ox 96 07/26/19 07:30 Intake & Output 07/24/19 07/25/19 07/26/19 23:59 23:59 23:59 Intake Total 2175.18 / 2375.18 2024 / 2024 200 / 200 Output Total 1450 / 1750 2125 / 2125 450 / 450 Balance 725.18 / 625.18 -100 / -100 -250 / -250 Weight: 105 kg 105.6 kg 105.3 kg Intake: Oral 840 / 1040 660 / 660 200 / 200 IV fluid/meds 0 / 0 0 / 0 Intake, IV Amount 1335.18 / 1335.18 1365 / 1365 Ceftriaxone 2 GM In 0.9% Normal 50 / 50 Saline 50 ML @ 100 mls/hr IV Q24 [facility] Rx#:[id number] Dextrose 5%/0.9% NaCl 1,000 ML 882.0 / 882.0 1000 / 1000 @ 30 mls/hr IV .[id number] [facility] Rx# :[id number] Levophed 8 MG In 0.9% Normal 38.18 / 38.18 0 / 0 Saline 250 ML @ 5 MCG/MIN 9.375 mls/hr CONT INF .[id number] [facility] Rx#:[id number] Vancomycin IV 1,000 MG/20 ML In 265 / 265 265 / 265 0.9% Normal Saline 250 ML @ 250 mls/hr IV Q12H [facility] Rx#: [id number] Zosyn 3.375 GM In 0.9% Normal 150 / 150 50 / 50 Saline 50 ML @ 12.5 mls/hr IV Q8@0200,1000,1800 [facility] Rx#: [id number] Output: Urine 1450 / 1750 2125 / 2125 450 / 450 Other: Number of Bowel Movements 1 General: Alert, Oriented x3 HEENT: Atraumatic Oral: Moist Mucosa Neck: Supple Lungs: Clear to auscultation Cardiovascular: Regular Rhythm Abdomen: Soft, Obese Rectal: Exam deferred Microbiology Past 72 Hours 07/22/19 13:53 Blood Culture - Final Blood Culture (Wb) - Arm Left Klebsiella oxytoca 07/22/19 13:35 Blood Culture - Preliminary Blood Culture (Wb) - Right Forearm No growth in 48 hours. 07/22/19 13:40 Urine Culture - Final Urine, Clean Catch Klebsiella oxytoca Laboratory Tests Past 24 Hrs 07/25/19 07/26/19 05:00 08:12 Diff Path Review Reviewed Sodium 145 Potassium 3.4 L Chloride 115 H Carbon Dioxide 21.0 Anion Gap 9 BUN 28 H Creatinine 1.46 H Estim Creat Clear Calc 49.84 Est GFR (MDRD) Af Amer 60 Est GFR (MDRD) Non-Af 50 L BUN/Creatinine Ratio 19.2 Glucose 94 Calcium 8.1 L Total Bilirubin 0.60 AST 55 H ALT 54 Alkaline Phosphatase 83 Total Protein 7.1 Albumin 2.4 L Globulin 4.7 H Albumin/Globulin Ratio 0.5 L Assessment/Plan All Active Problems (Last Reviewed 04/03/19 @ 09:22 by HUNTER Dumont) Urinary tract infection (Acute) Failure of outpatient treatment (Acute) Delirium due to another medical condition (Acute) Sepsis due to urinary tract infection (Acute) BPH with obstruction/lower urinary tract symptoms (Acute) BPH with obstruction/lower urinary tract symptoms (Acute) Hx of CABG (Resolved ~01/17/13) DU (duodenal ulcer) (Resolved) TIA (transient ischemic attack) (Resolved) 78-year-old male with multiple medical problems BPH obstruction came to the hospital with UTI sepsis bacteremia agree with doing a CAT scan to evaluate if there is a source of the infection CAT scans okay he may be able to go home and follow-up with me in the office I will review the CAT scan and follow-up on this.
--- NOTE | 2019-07-26 09:04 | DCINST_ITS ---
Discharge Diet: Light diet - advance as tolerated Discharge Activity: Return to Normal Activity Call your doctor if your incision/area has: Sudden Increased Bleeding Call your doctor if you observe: Inability to urinate Additional Instructions: pt needs to follow up with urology outpatient 1 - 2 weeks Allergies/Adverse Reactions: Allergies Veesbrq-Nfw-Cuw Reductase Inhibitor Adverse Reaction (Verified 04/03/19 08:46) numbness, myalgias Medications to take at Discharge Aspirin [Aspirin, Baby] 81 mg PO DAILY@0800 01/10/13 carvedilol 6.25 mg tablet 6.25 mg PO BID #180 tab 04/03/19 eplerenone 25 mg tablet 25 mg PO QDAY #90 tab 04/03/19 lisinopril 5 mg tablet 5 mg PO QDAY #90 tab 04/03/19 Ciprofloxacin [Cipro] 500 mg PO BID #14 tab 07/26/19 Tamsulosin HCl [Flomax] 0.4 mg PO DAILY #30 cap 07/26/19 The following prescriptions were given: Ciprofloxacin [Cipro] 500 mg PO BID #14 tab Tamsulosin HCl [Flomax] 0.4 mg PO DAILY #30 cap Primary Care Physician: Grayson Gentile MD [Primary Care Provider] - Test Results: Test results from this visit will be discussed in further detail at your follow- up appointment, if applicable. Please Follow Up With: Waqar Guerrero MD When: in 2 weeks, please call to make an appointment.
[2019-07-26 09:24] VITALS: BP 125/64; PULSE 89; RESP 20; TEMP 36.6; O2SAT 99
--- NOTE | 2019-07-26 11:09 | DCINST_ITS ---
- Discharge Diagnoses Current Active Problems: Current Active and Chronic Problems (Last Reviewed 07/26/19 @ 08:[address] Waqar Guerrero MD) Urinary tract infection (Acute) Failure of outpatient treatment (Acute) Delirium due to another medical condition (Acute) Chronic renal insufficiency (Chronic) Sepsis due to urinary tract infection (Acute) BPH with obstruction/lower urinary tract symptoms (Acute) BPH with obstruction/lower urinary tract symptoms (Acute) You will use the following diet at home:: Cardiac Your food should be the consistency of: Regular Discharge Activity: Return to Normal Activity, May Not Drive Weight Bearing Status: Weight bearing as tolerated Call your doctor if your incision/area has: Sudden Increased Bleeding Call your doctor if you observe: Fever of 101 or Higher, Change in Color, Inability to urinate, Shortness of breath, Dizziness, Fainting spells, Swelling in the ankles, Chest pain, Increased palpitations (irregular heartbeat), Calf discomfort, Uncontrolled pain Allergies/Adverse Reactions: Allergies Nqclqlk-Nix-Pgy Reductase Inhibitor Adverse Reaction (Verified 04/03/19 08:46) numbness, myalgias Medications to take at Discharge Aspirin [Aspirin, Baby] 81 mg PO DAILY@0800 01/10/13 carvedilol 6.25 mg tablet 6.25 mg PO BID #180 tab 04/03/19 eplerenone 25 mg tablet 25 mg PO QDAY #90 tab 04/03/19 lisinopril 5 mg tablet 5 mg PO QDAY #90 tab 04/03/19 Ciprofloxacin [Cipro] 500 mg PO BID #14 tab 07/26/19 Tamsulosin HCl [Flomax] 0.4 mg PO DAILY #30 cap 07/26/19 The following prescriptions were given: Ciprofloxacin [Cipro] 500 mg PO BID #14 tab Tamsulosin HCl [Flomax] 0.4 mg PO DAILY #30 cap Primary Care Physician: Grayson Gentile MD [Primary Care Provider] - Please follow up with your Primary Care Physician in: in 1-2 weeks Test Results: Test results from this visit will be discussed in further detail at your follow- up appointment, if applicable. Please Follow Up With: Waqar Guerrero MD When: in 2 weeks, please call to make an appointment. Please Follow Up With: Grayson Gentile MD
--- NOTE | 2019-07-26 11:12 | PCM.DC.SUM ---
Discharge Date and Diagnosis Date of Admission: 07/22/19 Date of Discharge: 07/26/19 - Primary Discharge Diagnosis Active and Suspected Problems (Last Reviewed 07/26/19 @ 08:[address] Waqar Guerrero MD) Urinary tract infection (Acute) Failure of outpatient treatment (Acute) Delirium due to another medical condition (Acute) Sepsis due to urinary tract infection (Acute) BPH with obstruction/lower urinary tract symptoms (Acute) BPH with obstruction/lower urinary tract symptoms (Acute) - Secondary Discharge Diagnosis Chronic Problems (Last Reviewed 07/26/19 @ 08:[address] 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 Chest pain (Chronic) TIA on medication (Chronic) NSTEMI (non-ST elevated myocardial infarction) (Chronic) Triple vessel coronary artery disease (Chronic) Hospital Course and Treatment Imaging Results: 07/26/19 08:12 CT Abd [Abdomen/Pelvis without Cont] [CT] Urgent Summary of Care Provided: [] This is 78 year old gentleman with history of hypertension came to ER with fever and chills, increased frequency and burning micturition as per H&P. Patient was found to be in septic shock and had high temperature 42.1 ?C therefore started on cooling blanket with admitting diagnosis of septic shock secondary to UTI/bacteremia 1. Septic shock secondary to complicated Klebsiella oxytoca UTI with bacteremia, probably secondary to BPH with bladder outlet obstruction: Patient blood pressure is 107/74. Initially patient was started on IV vancomycin and Zosyn which is narrowed down to ceftriaxone as per urine and blood culture sensitivity. Blood culture and urine culture grew shows Klebsiella oxytoca. Patient was on Levophed at 1 time which is discontinued. 07/25: Repeat UA shows WBC 25-50 cells, LE 500, bacteria 2+. Patient had CT abdomen and pelvis. Reported as enlargement of the prostate with indentation on the bladder base and possible soft tissue density within the bladder base. Urinary bladder wall is diffusely thickened. Small amount of residual air in anterior aspect of bladder as patient had Romero catheter. Discussed with urologist Dr. Guerrero and urology consult was done. Agree with continuing antibiotic Cipro 500 mg twice daily for 7 more days. Urine culture and blood culture collected. Patient does not want to stay. Agreed to follow-up in urology clinic in 2 weeks. Discharged on Flomax. 2. Acute hypoxic respiratory failure: Chest x-ray showed right lower lobe infiltrate versus atelectasis. COVID negative. On room air. Hypoxemia resolved 3. KEILY: creatinine up from 1.7-2. 2 3 and currently improving. Last one 1.8. Patient has Romero catheter. 5/6: Romero catheter was removed. Patient voided spontaneously. Creatinine improved to 1.4. KEILY resolved. 4. Elevated troponin mostly secondary demand ischemia. Coronary artery status post CABG and hypertension: troponin peaked to 0.654. 2D echo shows EF 75% with PASP of 60. On Lovenox 30 mg subcu daily. 5. VTE prophylaxis: Was on Lovenox. Discharge medication reconciliation done. Discharge follow-up instructions completed. Discharge process discussed with the patient and all questions were answered to patient's satisfaction. Total time spent, exact 35 minutes on discharge meds reconciliation, examination, coordination of care with nurses and ancillary staff, review of imaging and blood test and discussion with the patient on follow-up instructions Clinical Impression(s) from Imaging Studies Chest X-Ray 07/22/19 13:33 IMPRESSION: No acute thoracic pathology. Abdomen/Pelvis CT 07/26/19 08:12 IMPRESSION: Stable bilateral renal cysts. Enlargement of the prostate with indentation on the bladder base and possible soft tissue density within the bladder base. Small amount of air is seen within the anterior bladder. Diffusely thickened urinary bladder. Nonobstructive left intrarenal calculus. Subjective: Patient had low-grade fever T-max 100 point 4 in the morning today. Currently afebrile. Hemodynamically stable. Patient wants to go home. Objective: Patient has chronic history of increased frequency, hesitancy and incomplete emptying of bladder. He had kidney stone removed about 18 years ago. Patient was also told in the past that he has BPH. Discussed with the urologist. General: Alert, Oriented x3, Cooperative HEENT: Atraumatic, PERRLA, EOMI, Normocephalic Neck: Supple, No JVD, Negative Carotid Bruits Lungs: Clear to auscultation, No rhonchi, No wheeze, No rales, Diminished Cardiovascular: Regular rate, Regular Rhythm, Normal S1, Normal S2, No murmurs Abdomen: Bowel Sounds Present, Soft, Non Tender, Non-Distended Genitourinary: Patient has hydrocele. No renal angle tenderness or suprapubic tenderness. Romero catheter was removed yesterday and patient voided spontaneously. Extremities: No edema, Capillary Refill Less than 3 Seconds Skin: No rashes, No breakdown Musculoskeletal: No Tenderness to Palpation of Joints or Extremities, Arthritic Changes Neurological: Cranial nerves II-XII grossly intact, Deep Tendon Reflexes 2+/4 and Symmetrical, Neuro grossly intact Psych/Mental Status: Normal Affect, Appropriate - Physical Exam Vitals/I&O's: Vital Signs Temp Pulse Resp BP Pulse Ox 97.9 F 89 20 H 125/64 H 99 07/26/19 09:24 07/26/19 09:24 07/26/19 09:24 07/26/19 09:24 07/26/19 09:24 Oxygen Flow Rate (L/min) 21 Oxygen Delivery Method Room Air Weight: 232 lb 2.348 oz Body Mass Index (BMI) 28.1 Intake and Output for Last 24 Hours 07/24/19 07/25/19 07/26/19 23:59 23:59 23:59 Intake Total 2175.18 / 2375.18 2024 / 2024 200 / 200 Output Total 1450 / 1750 2125 / 2125 450 / 450 Balance 725.18 / 625.18 -100 / -100 -250 / -250 Microbiology Past 72 Hours 07/22/19 13:53 Blood Culture (Wb) - Arm Left Blood Culture - Final Klebsiella oxytoca 07/22/19 13:35 Blood Culture (Wb) - Right Forearm Blood Culture - Preliminary No growth in 48 hours. 07/22/19 13:40 Urine, Clean Catch Urine Culture - Final Klebsiella oxytoca Laboratory Results 07/25/19 11:32: POC Glucose 128 H 07/25/19 17:34: POC Glucose 95 07/26/19 00:05: POC Glucose 106 07/26/19 06:53: POC Glucose 94 07/26/19 08:12: Sodium 145, Potassium 3.4 L, Chloride 115 H, Carbon Dioxide 21.0, Anion Gap 9, BUN 28 H, Creatinine 1.46 H, Estim Creat Clear Calc 49.84, Est GFR (MDRD) Af Amer 60, Est GFR (MDRD) Non-Af 50 L, BUN/Creatinine Ratio 19.2, Glucose 94, Calcium 8.1 L, Total Bilirubin 0.60, AST 55 H, ALT 54, Alkaline Phosphatase 83, Total Protein 7.1, Albumin 2.4 L, Globulin 4.7 H, Albumin/Globulin Ratio 0.5 L Current Medications Acetaminophen (Tylenol) 650 mg PO Q6H PRN PRN PRN Reason: Temp > 100.7F Last Admin: 07/25/19 05:08 Dose: 650 mg Documented by: Aspirin (Aspirin, Baby) 81 mg PO DAILY@1000 CLAUDETTE Last Admin: 07/25/19 11:34 Dose: 81 mg Documented by: Dextrose (D50w Syringe) 0 gm IV X1 PRN; Protocol PRN Reason: Hypoglycemia Last Admin: 07/23/19 11:20 Dose: 12.5 gm Documented by: Enoxaparin Sodium (Lovenox) 30 mg SC DAILY CLAUDETTE Last Admin: 07/25/19 11:35 Dose: 30 mg Documented by: Glucagon () 1 mg IM .X1 PRN PRN Reason: Hypoglycemia Ciprofloxacin (Cipro) 400 mg in 200 mls @ 200 mls/hr IV Q12 CLAUDETTE Insulin Human Lispro (Humalog Kwikpen (Bkc)) 0 unit SC Q6 CLAUDETTE; Protocol Last Admin: 07/26/19 07:19 Dose: Not Given Documented by: Oxycodone HCl (Oxyir) 10 mg PO Q4H PRN PRN PRN Reason: Pain Score 4-5/10 Sodium Chloride () 10 - 40 ml IV UD PRN PRN Reason: SALINE FLUSH Last Admin: 07/24/19 10:10 Dose: 10 ml Documented by: Tamsulosin HCl (Flomax) 0.4 mg PO DAILY CLAUDETTE Discharge Diet: Light diet - advance as tolerated Discharge Activity: Return to Normal Activity, May Not Drive Weight Bearing Status: Weight bearing as tolerated Call your doctor if your incision/area has: Sudden Increased Bleeding Call your doctor if you observe: Fever of 101 or Higher, Change in Color, Inability to urinate, Shortness of breath, Dizziness, Fainting spells, Swelling in the ankles, Chest pain, Increased palpitations (irregular heartbeat), Calf discomfort, Uncontrolled pain Home Medications: Medications to take at Discharge Aspirin [Aspirin, Baby] 81 mg PO DAILY@0800 01/10/13 carvedilol 6.25 mg tablet 6.25 mg PO BID #180 tab 04/03/19 eplerenone 25 mg tablet 25 mg PO QDAY #90 tab 04/03/19 lisinopril 5 mg tablet 5 mg PO QDAY #90 tab 04/03/19 Ciprofloxacin [Cipro] 500 mg PO BID #14 tab 07/26/19 Tamsulosin HCl [Flomax] 0.4 mg PO DAILY #30 cap 07/26/19 Following Prescrptions Were Given to Patient: Ciprofloxacin [Cipro] 500 mg PO BID #14 tab Transmission Status: Received by [facility]/pharmacy #[id number] Tamsulosin HCl [Flomax] 0.4 mg PO DAILY #30 cap Transmission Status: Received by [facility]/pharmacy #[id number] Primary Care Physician: Grayson Gentile MD [Primary Care Provider] - Please follow up with your Primary Care Physician in: in 1-2 weeks Please Follow Up With: Waqar Guerrero MD When: in 2 weeks, please call to make an appointment. Please Follow Up With: Grayson Gentile MD Additional Instructions: pt needs to follow up with urology outpatient 1 - 2 weeks Medical Necessity - Tobacco Use Smoking Status: Former smoker Tobacco Use: Non-smoker Meaningful Use Info Meaningful Use Diagnoses (Choose all that apply): None applicable Inpatient E&M: 26415 [facility]
[2019-07-26] MEDS: 0.9% Saline Lock 10 ML Syringe IV (11:18)
[2019-07-26] MEDS: Ciprofloxacin 400 MG/200 ML BAG 200 MG IV (11:18)
[2019-07-26] MEDS: Aspirin 81 MG TAB.CHEW PO (11:20)
[2019-07-26 11:25] LABS: Bedside Glucose 122 mg/dL (70-110)
[2019-07-26] MEDS: Tamsulosin HCl 0.4 MG Capsule PO (11:25)
--- NOTE | 2019-07-26 12:45 | CASEMGMT ---
Per therapy notes, no therapy recommended for pt at discharge at this time. Elva GARCÍA CM
[2019-07-26 13:42] VITALS: BP 111/70; PULSE 64; RESP 18; TEMP 36.7; O2SAT 95
[2019-07-26 14:02] LABS: Mucous, Urine 0 SEEN /hpf (<or=2+); Squamous Epithelial Cells - UA 0 SEEN /hpf (0-5)
[2019-07-26 14:05] LABS: Color, Urine Yellow (Yellow); Glucose, Dipstick Normal (Normal); Ketone-Dipstick Negative (Negative); Leukocyte Esterase-Dipstick 500 /ul (Negative); Nitrite-Dipstick Negative (Negative); Occult Blood-Urine 250 /ul (Negative); Protein-Dipstick 30 mg/dl (Negative); Specific Gravity, Urine 1.015 (1.002-1.030); Urine Bilirubin Dipstick Negative (Negative); Urine Clarity Sl. Cloudy (Clear); Urine Urobilinogen Normal (Normal)
[2019-07-26 14:17] LABS: Bacteria 2+ /hpf (None Seen); Red Blood Cells-Urine 5-10 SEEN /hpf (0-5); White Blood Cells 25-50 SEEN /hpf (0-5)
--- NOTE | 2019-07-27 15:20 | CASEMGMT ---
RICKY MANNING Discharge Follow-Up Phone Call. Kelsey: Dinesh Strata: 3 Discharge Date: 07/26/19 Adm Dx: Sepsis d/t UTI Call to pt to inquire about how he has been doing since being discharged from the hospital. Pt states I'm doing fine. He reports he did not olive picker the new medications (Cipro and Flomax) until today. Pt advised to take Cipro as soon as possible, as he has missed 2 doses since being discharged. He voices understanding. Pt voiced concerns re: Flomax and side effects listed. He was made aware what the medications are and why they were ordered. Medications reviewed with pt and discussed concerns with him. RICKY MANNING encouraged pt to talk with his physician or pharmacist if he has further concerns. He stated he was comfortable with taking them, but that he would contact his doctor if he started to have any symptoms. Pt aware of telephone visit scheduled with his PCP and aware he is to call Dr Guerrero's office to schedule a f/u appt. He denies having any other concerns/needs/questions. RICKY MANNING thanked pt for choosing [facility]. Pt thanked RICKY MANNING for calling. Da MARTINEZ RN, CM
== END 2019-07-26 14:31 | disposition home or self-care (01) | DRG 871 ==
LOC: ED 14:33 → PCU 15:30 → ICU 23:22 → PCU 07-25 14:04
PROVIDERS: Hospitalist; Admitting Provider Student in an Organized Health Care Education/Training Program; Emergency Provider Emergency Medicine; PCP Family Medicine; Visit Provider Internal Medicine
DX: A41.59 Other Gram-negative sepsis (principal); R65.21 Severe sepsis with septic shock; J96.01 Acute respiratory failure with hypoxia; J18.9 Pneumonia, unspecified organism; I21.A1 Myocardial infarction type 2; G93.41 Metabolic encephalopathy; N39.0 Urinary tract infection, site not specified; N17.9 Acute kidney failure, unspecified; J98.11 Atelectasis; I25.810 Atherosclerosis of coronary artery bypass graft(s) without angina pectoris; N13.8 Other obstructive and reflux uropathy; R56.9 Unspecified convulsions; B96.89 Other specified bacterial agents as the cause of diseases classified elsewhere; I12.9 Hypertensive chronic kidney disease with stage 1 through stage 4 chronic kidney disease, or unspecified chronic kidney disease; N18.3 Chronic kidney disease, stage 3 (moderate); N40.1 Benign prostatic hyperplasia with lower urinary tract symptoms; R35.0 Frequency of micturition; R39.11 Hesitancy of micturition; R39.14 Feeling of incomplete bladder emptying; R39.15 Urgency of urination; I25.5 Ischemic cardiomyopathy; I25.10 Atherosclerotic heart disease of native coronary artery without angina pectoris; E78.5 Hyperlipidemia, unspecified; I25.2 Old myocardial infarction; Z79.82 Long term (current) use of aspirin; Z79.899 Other long term (current) drug therapy; Z86.73 Personal history of transient ischemic attack (TIA), and cerebral infarction without residual deficits; Z87.891 Personal history of nicotine dependence; Z95.1 Presence of aortocoronary bypass graft; Z95.810 Presence of automatic (implantable) cardiac defibrillator; Z86.74 Personal history of sudden cardiac arrest
CPT/HCPCS: 36415; 71045; 74018; 74176; 80048; 80053; 80202; 81001; 82962; 83605; 84145; 84484; 85025; 85610; 85730; 86140; 87040; 87077; 87086; 87088; 87186; 87635; 87641; 93005; 93306; 94002; 94003; 96360; 97110; 97116; 97162; 97166; 97530; 99251; 99285; G2023; J7030; J7040; J7050; Q9957; A4216; G0463; J0696; J0744; U0004

== ENCOUNTER 2021-06-07 23:18 | Emergency (ER) | payer MEDICARE, OTHER, SELFPAY ==
--- NOTE | 2021-06-07 00:38 | RAD_ITS ---
STUDY: X-RAY CHEST REASON FOR EXAM: Male, 80 years old. chest pain TECHNIQUE: AP portable upright COMPARISON: None. FINDINGS: There is mild by basilar interstitial infiltrate. There is no demonstrated pleural abnormality. There is moderate cardiomegaly with a pacemaker. There are postsurgical changes of a CABG. Normal mediastinum and ginny. Normal visualized pulmonary arteries. Normal visualized aortic arch and descending thoracic aorta. Normal visualized thoracic spine. Normal visualized ribs, clavicles, and shoulders. There is no demonstrated abnormality of the visualized soft tissue structures of the upper abdomen. RAD/Chest 1 View (Portable) IMPRESSION: There is mild basilar interstitial infiltrate There is cardiomegaly with a pacemaker. Electronically Signed: Doug Hilliard MD at 0:59 EDT ,
[2021-06-07 23:20] VITALS: BP 125/84; PULSE 63; RESP 15; TEMP 36.1; O2SAT 97; BMI 30.3
[2021-06-07 23:28] VITALS: O2SAT 96
--- NOTE | 2021-06-07 23:32 | EKG12_ITS ---
Test Reason : SOB Blood Pressure : / mmHG Vent. Rate : 062 BPM Atrial Rate : 063 BPM P-R Int : 202 ms QRS Dur : 152 ms QT Int : 522 ms P-R-T Axes : 069 -42 038 degrees QTc Int : 529 ms Sinus rhythm Left axis deviation Right bundle branch block Inferior infarct , age undetermined Anterolateral infarct , age undetermined Abnormal ECG Confirmed by AARON MAX, JOHAN ([id number]), electronic news gathering editor JOSE CANALES ([id number]) on 06/09/2021 11:42:44 A M Referred By: CONSTANTINO Confirmed By:MANOJ WALKER MD
[2021-06-07 23:34] VITALS: O2SAT 94
--- NOTE | 2021-06-07 23:40 | ED.VIS.DYS ---
HPI History of Present Illness Chief Complaint: Shortness of Breath Informant: patient Onset/Context/Timing Onset: Month(s) Context: gradual Timing: Intermittent Current Severity: Gone Maximum Severity: Mild Worsened by: Exertion Relieved by: Rest Associated Symptoms Negative for cough, fever, sore throat, chills or sweats Chest Pain: Positive for None Narrative Narrative: 80-year-old male history of CAD, CABG, DE with a defibrillator. Also has a history of hypertension. His bypass surgery about 6 years ago at [facility]. States for the last 2 months has had shortness of breath. He also has had bilateral leg swelling since that time. No history of CHF. No history of significant kidney disease. Said it is worse when he is exerting himself. He denies any chest pain. No fever cough. No hemoptysis. No history of DVT or PE. He is on no blood thinners. He denies any fever or chills. PE Risk Factors: Negative for Cancer, OCP + Smoking + > 35, Prior DVT or PE, Recent immobilization, Recent surgery and Recent travel Prior similar symptoms: Yes Recent Illness/Hospitalization: No PFSH PFS Medical History (Updated 06/08/21 @ 01:[address] 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 Essential hypertension HTN (hypertension) Ischemic cardiomyopathy Old myocardial infarction Personal history of sudden cardiac arrest Pure hypercholesterolemia Home Medications aspirin 81 mg PO DAILY@0800 01/10/13 [History Last Taken 01/10/13 15:00] carvedilol 6.25 mg tablet 6.25 mg PO BID #180 tab 02/07/20 [Rx Last Taken Unknown] eplerenone 25 mg tablet 25 mg PO QDAY #90 tab 03/12/21 [Rx Last Taken Unknown] lisinopril 5 mg tablet 5 mg PO QDAY #90 tab 03/12/21 [Rx Last Taken Unknown] Allergy/AdvReac Type Severity Reaction Status Date / Time Ulpaxri-BUF-[id number] Reductase AdvReac numbness, Verified 06/07/21 23:20 Inhibitor myalgias [Ukpcxzq-Qtd-Niq Reductase Inhibitor] Family History Father CAD (coronary artery disease) Heart disease Surgical History Automatic implantable cardiac defibrillator in situ (01/23/13) History of bilateral cataract extraction History of left heart catheterization (LHC) Hx of CABG (~01/17/13) ICD (implantable cardioverter-defibrillator), dual, in situ Social History Smoking Status: Former smoker alcohol intake: current alcohol intake frequency: a few times a week Alcohol type: beer and wine substance use type: does not use caffeine: Yes Type: coffee what type of physical activity do you participate in: walking and bicycling frequency: 3-4 times per week duration: 15-30 minutes/day seatbelt use: always do you feel safe at home: Yes ROS ROS ED ROS Narrative Denies recent illness. Dyspnea. Review of Systems ROS Unobtainable: Denies due to encephalopathy Constitutional Constitutional ED: Denies chills or fever(s) Eyes Eyes: Denies change in vision ENT ENT ED: Denies ear pain, rhinorrhea or sore throat Cardiovascular Cardiovascular: Denies chest pain or palpitations Respiratory/Chest Respiratory/Chest: Reports dyspnea; Denies cough or sputum Gastrointestinal Gastrointestinal: Denies abdominal pain, diarrhea, nausea or vomiting Genitourinary Genitourinary ED: Denies dysuria Musculoskeletal Musculoskeletal: Denies myalgias Integumentary Denies rash Neurologic Neurologic: Denies headache(s) Psychiatric Psychiatric: Denies depression Endocrine Endocrinology: Denies polyuria Hematologic/Lymphatic Hematologic/Lymphatic: Denies easy bruising Allergic/Immunologic Allergic/Immunologic ED: Denies urticaria EXAM Physical Exam Narrative Exam Narrative: 80-year-old male no acute distress. Vital signs stable afebrile. Pulse ox 97% on room air no signs of hypoxia. H EENT exam unremarkable. Neck nontender. No JVD. Lungs clear to auscultation bilaterally. Heart regular rate and rhythm rate about 60. Abdomen soft nontender. Normal bowel sounds no peritoneal signs. Patient moving all 4 extremities. He is 1+ pitting edema both lower extremities. Calves are nontender. Neurologically is awake and alert with no focal motor deficits. Const Vital Signs: 06/07/21 23:20 06/07/21 23:28 06/07/21 23:34 Temperature 96.9 F L Temperature Source Temporal Pulse Rate 63 Respiratory Rate 15 Respiratory Effort Normal Blood Pressure 125/84 H Blood Pressure Mean 97 Pulse Ox 97 94 Oxygen Delivery Method Room Air Room Air Room Air Positive well nourished and well developed; Negative for obese, cachectic, contractures or unkempt General Appearance ED: well developed and NAD; Negative for unkempt, cachectic, contractures or pallor Nutritional Appearance: Negative for cachectic or obese HEENT Reports moist mucous membranes atraumatic; Negative for trauma or tenderness Eyes PERRL and EOMs intact bilaterally General Eye ED: Negative for pale conjunctiva or scleral icterus Neck no lymphadenopathy, supple, no meningeal signs and no JVD General: Negative for tenderness Resp normal respiratory effort and clear to auscultation bilaterally Auscultation: Negative for rales, rhonchi or wheezes Cardio regular rate, regular rhythm, S1 normal heart sound, S2 normal heart sound and no murmurs GI non-tender, non-distended and no masses Auscultation: normoactive bowel sounds Palpation: soft; Negative for tender or guarding Back/Spine normal to inspection; Negative for no CVA tenderness Extremity Negative for normal to inspection Extremity Narrative: Bilateral lower extremity 1+ pitting edema. General Extremety ED: Yes edema; Negative for tenderness General Extremity: edema Neuro oriented x3 Sensorium / Orientation: alert, oriented to person, oriented to place and oriented to time; Negative for orientation impaired or confused Motor Exam: strength 5/5 throughout Psych Appearance: Negative for unkempt Skin no wounds General Skin Exam: Negative for jaundice or pallor Lesions: no lesions Rashes: no rashes MDM MDM MDM Narrative Medical decision making narrative: 80-year-old male with exertional shortness of breath and bilateral pitting edema with a strong cardiac history. Possibly secondary CHF versus other etiologies. Labs are being obtained along with a chest x-ray and EKG. Repeat exam patient is doing well at 1:20 AM. Had a long discussion with he and his friend at bedside. He is comfortable being discharged home. He has not been taking his diuretic as prescribed. He says he forgets sometimes. He will begin taking it every morning as prescribed. And he will follow up with his [employer] office Dr. Tre Aldrich to ensure he is improving. He knows he return if worse. Currently his vital signs are stable his blood pressure is 130/67. His pulse ox is 96% on room air. Lab Data Attestation: I reviewed the patient's lab results. Lab results narrative: CBC was unremarkable with a white count of 5.8. H&H of 13 and 41. Platelets were slightly low at 132. Electrolytes showed a gap of 7 BUN of 28 creatinine 1.6. Troponin was normal at 20. BNP was elevated at 1635. Consistent with his exam and congestive heart failure. Patient's had a history of prior thrombocytopenia. And his chemistries are consistent with his history of renal insufficiency. He has no prior BNPs for comparison. Labs: Laboratory Results - last 24 hr 06/08/21 06/08/21 06/08/21 00:10 00:10 00:10 WBC 5.8 RBC 4.83 Hgb 13.9 Hct 41.8 MCV 86.5 MCH 28.8 MCHC 33.3 RDW Std Deviation 56.1 H RDW Coeff of Noel 17.9 H Plt Count 132 L MPV 12.9 H Immature Gran % (Auto) 0.300 Neut % (Auto) 65.8 Lymph % (Auto) 21.1 Dooly % (Auto) 9.5 Eos % (Auto) 2.8 Baso % (Auto) 0.5 Absolute Neuts (auto) 3.8 Absolute Lymphs (auto) 1.22 Nucleated RBC % 0 Sodium 144 Potassium 4.0 Chloride 115 H Carbon Dioxide 22.0 Anion Gap 7 BUN 28 H Creatinine 1.61 H Estim Creat Clear Calc 43.74 Est GFR (MDRD) Af Amer 53 L Est GFR (MDRD) Non-Af 44 L BUN/Creatinine Ratio 17.4 Glucose 101 Calcium 8.7 Troponin I High Sens 20 B-Natriuretic Peptide 1635.2 H Radiography Chest X-Ray - ED: 1 View, Read by ED Physician, Mediastinum, Bony Structures, No Acute Disease, Chronic Changes and Cardiomegaly Diagnostic Testing: Clinical Impression(s) from Imaging Studies Chest X-Ray 06/07/21 00:38 IMPRESSION: There is mild basilar interstitial infiltrate There is cardiomegaly with a pacemaker. Electronically Signed: Doug Hilliard MD at 0:59 EDT , Chest x-ray, portable, single view interpreted by myself and the radiologist shows chronic changes. Cardiomegaly. Pacemaker on the left. Bilateral chronic infiltrates. Cannot rule out vascular congestion. Rhythm Strip Rhythm Strip: Sinus Rhythm Rate: 62 Ectopy: None EKG Initial EKG: Attestation: I personally reviewed and interpreted this EKG as follows: Interpretation: Sinus Rhythm and No Acute Injury Pattern Comments: Sinus rhythm rate of 62 no acute signs of acute DE or ischemia. Right bundle branch block. Old inferior DE. Prior EKG tracings: available for review Prior: Unchanged Discharge Plan Triage Chief Complaint: Shortness of Breath ED Provider: Rik Jarquin Dx/Rx/DC Orders Clinical Impression: Acute dyspnea, Congestive heart failure, History of coronary artery disease Instructions: ED Heart Failure, Congestive (CHF) Prescriptions: No Action aspirin 81 MG tablet,chewable 81 mg PO DAILY@0800 RF: 0 carvedilol 6.25 mg tablet 6.25 mg PO BID Qty: 180 RF: 3 lisinopril 5 mg tablet 5 mg PO QDAY Qty: 90 RF: 3 eplerenone 25 mg tablet 25 mg PO QDAY Qty: 90 RF: 3 Primary Care Provider: Grayson Gentile Referrals: Grayson Gentile MD [Primary Care Provider] - Tre Aldrich MD [STAFF PHYSICIAN] - As soon as possible Activity Restrictions/Additional Instructions: Make sure you are taking your diuretic medication which will help you get rid of the fluid. The medication is called eplerenone. You need to be taking it every morning. Follow-up with your [employer] Dr. Tre Aldrich to ensure you are improving. Disposition Disposition: Home, Self Care
[2021-06-08 00:16] LABS: Absolute Lymphocyte Count 1.22 X10^3/uL (0.83-4.51); Absolute Neutrophil Count 3.8 X10^3/uL (2.0-7.7); Basophil# 0.03 X10^3/uL; Basophil% 0.5 % (0-1); Eosinophil# 0.16 X10^3/uL; Eosinophils% 2.8 % (0-5); Hematocrit 41.8 % (40-54); Hemoglobin 13.9 g/dL (13.0-16.5); Lymphocyte # 1.22 X10^3/ul (0.83-4.51); Lymphocyte % 21.1 % (19-41); Mean Corp Hgb Conc 33.3 g/dL (32-36); Mean Corpuscular Hgb 28.8 pg (27.0-32.0); Mean Corpuscular Volume 86.5 fL (80-94); Mean Platelet Vol. 12.9 fl (6.2-12.0); Monocyte# 0.55 X10^3/uL; Monocyte% 9.5 % (0-10); NRBC Flagged by Analyzer 0 % (0-5); Neutrophil # 3.79 X10^3/uL (2.7-7.7); Neutrophil % 65.8 % (47-70); Platelet Count 132 K/mm3 (150-450); RBC Distribution Width CV 17.9 % (11.6-14.6); RBC Distribution Width SD 56.1 fl (35.1-43.9); Red Blood Count 4.83 M/mm3 (4.6-6.2); White Blood Count 5.8 K/mm3 (4.4-11.0)
[2021-06-08 00:34] LABS: Anion Gap 7 (5-15); BUN 28 mg/dL (7-18); BUN/Creat Ratio 17.4 RATIO (10-20); Calcium,Total 8.7 mg/dL (8.5-10.1); Chloride 115 mmol/L (98-107); Creatinine, Serum 1.61 mg/dL (0.70-1.30); EST Glomerular Filtration Rate 44 mL/min (>60); Est Glom Filt Rate - Afr Amer 53 mL/min (>60); Estimated Creatinine Clearance 43.74 ml/min; Glucose 101 mg/dL (74-106); Sodium Level 144 mmol/L (136-145); Troponin-I HS 20 pg/mL (3.0-78.0)
[2021-06-08 01:30] VITALS: BP 127/87; PULSE 56; RESP 20; O2SAT 97
[2021-06-08 01:34] VITALS: BP 130/81; PULSE 59; RESP 20; O2SAT 96
--- NOTE | 2021-06-09 14:22 | CM.ED ---
ER RNCM DC F/u Call: Called patient's listed number on demographics, no answer. VM did not identify correct patient and therefore no VM was left. Seen in ED 06/07/21 for SOB and Dc'd home to f/u with Dr Aldrich and try to remember to take his Lasix. Roby Mckeon, RICKYCM
== END 2021-06-08 01:36 | disposition home or self-care (01) ==
PROVIDERS: Emergency Provider Emergency Medicine; PCP Family Medicine; Visit Provider Emergency Medicine
DX: I11.0 Hypertensive heart disease with heart failure (principal); I50.9 Heart failure, unspecified; I25.5 Ischemic cardiomyopathy; E78.00 Pure hypercholesterolemia, unspecified; I25.10 Atherosclerotic heart disease of native coronary artery without angina pectoris; Z79.82 Long term (current) use of aspirin; Z79.899 Other long term (current) drug therapy; I25.2 Old myocardial infarction; Z95.1 Presence of aortocoronary bypass graft; Z95.810 Presence of automatic (implantable) cardiac defibrillator; Z87.891 Personal history of nicotine dependence
CPT/HCPCS: 71045; 80048; 83880; 84484; 85025; 93005; 99285; A4216

== ENCOUNTER 2021-06-16 11:10 | Outpatient (CLI) | payer MEDICARE, OTHER, SELFPAY ==
[2021-06-16 13:10] LABS: BNP,B-Type NATRIURETIC PEPTIDE 1617.6 pg/mL (0-100)
[2021-06-16 14:03] LABS: AST(SGOT) 14 U/L (15-37); Alanine Aminotransfer ALT/SGPT 21 U/L (16-61); Albumin, Serum 3.3 g/dL (3.2-5.0); Alkaline Phosphatase 80 U/L (45-117); Anion Gap 9 (5-15); BUN 24 mg/dL (7-18); BUN/Creat Ratio 15.5 RATIO (10-20); Bilirubin, Direct 0.53 mg/dL (0.00-0.30); Calcium,Total 8.8 mg/dL (8.5-10.1); Chloride 114 mmol/L (98-107); Cholesterol 123 mg/dL (200); Creatinine, Serum 1.55 mg/dL (0.70-1.30); EST Glomerular Filtration Rate 46 mL/min (>60); Est Glom Filt Rate - Afr Amer 56 mL/min (>60); Globulin 4.2 g/dL (2.2-4.2); Glucose 102 mg/dL (74-106); High Density Lipoprotein 42 mg/dL; Potassium 3.9 mmol/L (3.5-5.1); Protein, Total 7.5 g/dL (6.4-8.2); Sodium Level 144 mmol/L (136-145); Triglycerides 47 mg/dL; Very Low Density Lipoprotein 9 mg/dL (5-40)
== END 2021-06-16 23:59 | disposition home or self-care (01) ==
LOC: LAB 11:12
PROVIDERS: PCP Family Medicine; Visit Provider Nurse Practitioner Gerontology
DX: E78.00 Pure hypercholesterolemia, unspecified (principal); R06.00 Dyspnea, unspecified
CPT/HCPCS: 36415; 80048; 80061; 80076; 83880

== ENCOUNTER 2021-06-24 12:48 | Outpatient (CLI) | payer MEDICARE, OTHER, SELFPAY ==
--- NOTE | 2021-06-24 12:51 | ECHOCS_ITS ---
Reason For Study: DYSPNEA/SOB Procedure This was a 2D Doppler, Color Flow transthoracic echocardiogram. The study was technically difficult. DUE BODY HABITUS. Contrast injection was performed. Exam performed in department. Left Ventricle Moderately dilated left ventricle. Mild concentric left ventricular hypertrophy. Moderate segmental systolic dysfunction (see wall motion). The estimated ejection fraction is 30 %. Posterior-Basal: Hypokinetic. Infero-Basal: Hypokinetic. Mid-Anterior : Hypokinetic. Mid-Lateral : Hypokinetic. Mid- Posterior: Akinetic. Mid-Inferior: Akinetic. Mid-inferoseptal : Akinetic. Mid-anteroseptal : Hypokinetic. Ackerman : Akinetic. Right Ventricle Normal RV size. ICD or pacer leads identified within the right ventricle. Normal systolic function. Atria Normal left atrium. Normal right atrium. ICD or pacer leads identified within the right atrium. No doppler evidence for ASD. Mitral Valve There is no mitral annular calcification. Mild diffuse mitral valve thickening. Mild (1+) mitral valve insufficiency. Tricuspid Valve Normal tricuspid valve. Mild eccentric tricuspid valve insufficiency. Right ventricular systolic pressure estimated to be 47 mmHg. Aortic Valve Trisinus/trileaflet aortic valve. Moderate focal aortic valve calcification. Mild (1+) aortic valve insufficiency. Pulmonic Valve The pulmonic valve is not well visualized. Trivial pulmonic valve insufficiency. Great Vessels The ascending aorta is mildly dilated. Pericardium/Pleural No pericardial effusion. Medication 22 gauge I.V. with prn adaptor inserted into left arm. Diluted definity 3.0ml given slow IV push to enhance endocardial definition. MMode/2D Measurements & Calculations LVIDd: 6.1 cm IVSd: 1.4 cm Ao root diam: 4.1 cm LVIDs: 4.8 cm LVPWd: 1.3 cm RVDd: 5.0 cm FS: 20.5 % LAV(MOD-bp): 155.6 ml LA A4 area: 36.3 cm2 LA dimension(2D): 6.6 cm LAV(MOD-bp) Indexed: 66.5 ml/m2 LAV(MOD-sp2): 153.8 ml LAV(MOD-sp4): 153.8 ml RA A4 area: 29.3 cm2 Time Measurements MV dec time: 0.16 sec Doppler Measurements & Calculations MV E max sharan: 127.7 cm/sec Lat Peak E' Sharan: 7.8 cm/sec Med Peak E' Sharan: 7.5 cm/sec MV A max sharan: 40.6 cm/sec E/E' lat: 16.4 E/E' med: 17.1 MV E/A: 3.1 Ao V2 max: 174.3 cm/sec AI max sharan: 426.5 cm/sec LV V1 max: 113.2 cm/sec Ao max P.2 mmHg AI max P.8 mmHg LV V1 max P.1 mmHg Ao V2 mean: 133.5 cm/sec AI dec slope: 300.2 cm/sec2 LV V1 mean P.2 mmHg Ao mean P.7 mmHg AI P1/2t: 416.1 msec LV V1 mean: 83.4 cm/sec Ao V2 VTI: 33.6 cm LV V1 VTI: 23.4 cm PA V2 max: 86.0 cm/sec TR max sharan: 330.6 cm/sec TR max P.8 mmHg ECHO/Echo Complete W/ Contrast Interpretation Summary The study was technically difficult. Contrast injection was performed. Moderately dilated left ventricle. Moderate segmental systolic dysfunction (see wall motion). The estimated ejection fraction is 30 %. Mild concentric left ventricular hypertrophy. Mild diffuse mitral valve thickening. Mild (1+) mitral valve insufficiency. Mild eccentric tricuspid valve insufficiency. Moderate focal aortic valve calcification. Mild (1+) aortic valve insufficiency. Trivial pulmonic valve insufficiency. The ascending aorta is mildly dilated. Right ventricular systolic pressure estimated to be 47 mmHg. Transmitral diastolic flow velocities suggest diastolic dysfunction (pseudonorm al pattern). ICD or pacer leads identified within the right atrium ICD or pacer leads identified within the right ventricle. Ordering Physician: Ruben^Linsey^^^NEREIDA ARROYO Referring Physician: Grayson Gentile Performed By: Danielle Chow, RDLIZZ, RVT
== END 2021-06-24 23:59 | disposition home or self-care (01) ==
LOC: CVS 12:50
PROVIDERS: PCP Family Medicine; Referring Provider Nurse Practitioner Gerontology; Visit Provider Nurse Practitioner Gerontology
DX: R06.02 Shortness of breath (principal)
CPT/HCPCS: 93306; Q9957; A4216; C8929

== ENCOUNTER → 2021-08-08 | Outpatient (CLI) | payer MEDICARE, OTHER, SELFPAY | END | disposition home or self-care (01) | LOC: PSN 12:34 | PROVIDERS: PCP Family Medicine; Referring Provider Physician Assistant Medical; Visit Provider Physician Assistant Medical | DX: Z00.00 Encounter for general adult medical examination without abnormal findings (principal) ==

== ENCOUNTER 2021-09-11 08:14 | Day surgery (SDC) | payer MEDICARE, OTHER, SELFPAY ==
[2021-07-30 11:05] LABS: Bacteria 0 SEEN /hpf (None Seen); Mucous, Urine 0 SEEN /hpf (<or=2+)
[2021-07-30 11:28] LABS: Color, Urine Yellow (Yellow); Glucose, Dipstick Normal (Normal); Hematocrit 45.2 % (40-54); Hemoglobin 14.5 g/dL (13.0-16.5); Ketone-Dipstick Negative (Negative); Leukocyte Esterase-Dipstick 25 /ul (Negative); Mean Corp Hgb Conc 32.1 g/dL (32-36); Mean Corpuscular Hgb 28.7 pg (27.0-32.0); Mean Corpuscular Volume 89.3 fL (80-94); Mean Platelet Vol. 12.7 fl (6.2-12.0); Nitrite-Dipstick Negative (Negative); Occult Blood-Urine 10 /ul (Negative); Platelet Count 118 K/mm3 (150-450); Protein-Dipstick 100 mg/dl (Negative); RBC Distribution Width CV 17.9 % (11.6-14.6); RBC Distribution Width SD 57.8 fl (35.1-43.9); Red Blood Count 5.06 M/mm3 (4.6-6.2); Specific Gravity, Urine 1.025 (1.002-1.030); Urine Bilirubin Dipstick Negative (Negative); Urine Clarity Sl. Cloudy (Clear); Urine Urobilinogen 1 mg/dl (Normal); White Blood Count 5.6 K/mm3 (4.4-11.0)
[2021-07-30 11:35] LABS: International Normalized Ratio 1.4; Prothrombin Time (Protime)PT. 17.2 SECONDS (11.7-14.9)
[2021-07-30 11:42] LABS: Red Blood Cells-Urine 0-5 SEEN /hpf (0-5); Squamous Epithelial Cells - UA 0-5 SEEN /hpf (0-5); White Blood Cells 0-5 SEEN /hpf (0-5)
[2021-07-30 11:55] LABS: Anion Gap 5 (5-15); BUN 31 mg/dL (7-18); BUN/Creat Ratio 19.1 RATIO (10-20); Calcium,Total 8.7 mg/dL (8.5-10.1); Chloride 115 mmol/L (98-107); Creatinine, Serum 1.62 mg/dL (0.70-1.30); EST Glomerular Filtration Rate 44 mL/min (>60); Est Glom Filt Rate - Afr Amer 53 mL/min (>60); Glucose 103 mg/dL (74-106); Potassium 4.2 mmol/L (3.5-5.1); Sodium Level 143 mmol/L (136-145)
[2021-07-30 11:56] LABS: BNP,B-Type NATRIURETIC PEPTIDE 1672.9 pg/mL (0-100)
[2021-08-08 13:49] LABS: Anion Gap 4 (5-15); BUN 26 mg/dL (7-18); BUN/Creat Ratio 18.1 RATIO (10-20); Calcium,Total 8.7 mg/dL (8.5-10.1); Chloride 110 mmol/L (98-107); Creatinine, Serum 1.44 mg/dL (0.70-1.30); EST Glomerular Filtration Rate 50 mL/min (>60); Est Glom Filt Rate - Afr Amer 61 mL/min (>60); Glucose 95 mg/dL (74-106); Potassium 3.6 mmol/L (3.5-5.1); Sodium Level 142 mmol/L (136-145)
[2021-08-08 16:03] LABS: Probe Check PASS; Specimen Processing Control PASS
[2021-09-09 08:46] LABS: Bacteria 0 SEEN /hpf (None Seen); Mucous, Urine 0 SEEN /hpf (<or=2+); Red Blood Cells-Urine 0 SEEN /hpf (0-5); White Blood Cells 0 SEEN /hpf (0-5)
[2021-09-09 09:13] LABS: POSITIVE COUNT YES
[2021-09-09 09:15] LABS: Absolute Lymphocyte Count 1.85 X10^3/uL (0.83-4.51); Absolute Neutrophil Count 2.4 X10^3/uL (2.0-7.7); Basophil# 0.04 X10^3/uL; Basophil% 0.8 % (0-1); Color, Urine Yellow (Yellow); Eosinophil# 0.14 X10^3/uL; Eosinophils% 2.8 % (0-5); Glucose, Dipstick Normal (Normal); Hematocrit 45.9 % (40-54); Hemoglobin 15.1 g/dL (13.0-16.5); Ketone-Dipstick Negative (Negative); Leukocyte Esterase-Dipstick Negative /ul (Negative); Lymphocyte # 1.85 X10^3/ul (0.83-4.51); Lymphocyte % 37.6 % (19-41); Mean Corp Hgb Conc 32.9 g/dL (32-36); Mean Corpuscular Hgb 27.8 pg (27.0-32.0); Mean Corpuscular Volume 84.5 fL (80-94); Mean Platelet Vol. 11.3 fl (6.2-12.0); Monocyte# 0.48 X10^3/uL; Monocyte% 9.8 % (0-10); NRBC Flagged by Analyzer 0 % (0-5); Neutrophil # 2.41 X10^3/uL (2.7-7.7); Nitrite-Dipstick Negative (Negative); Occult Blood-Urine Negative /ul (Negative); Platelet Count 115 K/mm3 (150-450); Protein-Dipstick 15 mg/dl (Negative); RBC Distribution Width CV 16.6 % (11.6-14.6); RBC Distribution Width SD 51.2 fl (35.1-43.9); Red Blood Count 5.43 M/mm3 (4.6-6.2); Specific Gravity, Urine 1.015 (1.002-1.030); Urine Bilirubin Dipstick Negative (Negative); Urine Clarity Sl. Cloudy (Clear); Urine Urobilinogen Normal (Normal); White Blood Count 4.9 K/mm3 (4.4-11.0)
[2021-09-09 09:18] LABS: International Normalized Ratio 1.2; Prothrombin Time (Protime)PT. 14.5 SECONDS (11.7-14.9)
[2021-09-09 09:28] LABS: Squamous Epithelial Cells - UA 0-5 SEEN /hpf (0-5)
[2021-09-09 09:32] LABS: Anion Gap 8 (5-15); BUN 44 mg/dL (7-18); BUN/Creat Ratio 25.4 RATIO (10-20); Chloride 110 mmol/L (98-107); Creatinine, Serum 1.73 mg/dL (0.70-1.30); EST Glomerular Filtration Rate 41 mL/min (>60); Est Glom Filt Rate - Afr Amer 49 mL/min (>60); Glucose 97 mg/dL (74-106); Potassium 5.1 mmol/L (3.5-5.1); Sodium Level 140 mmol/L (136-145)
[2021-09-09 09:59] LABS: Platelet Estimate SLT DEC (ADEQ)
[2021-09-10 11:27] VITALS: BMI 28.8
--- NOTE | 2021-09-11 11:31 | EX.DEFIBPR_ITS ---
Defibrillator Procedure Note Defibrillator Procedure Note Diagnosis: ischemic Cardiomyopathy with NYHA Class ii. ICD for secondary preve ntion. Device generator replacement for normal battery depletion Preoperative diagnosis is device at end of life for normal battery depletion. Postoperative diagnosis same as above. After informed consent and IV antibiotics the patient was brought to the [place] catheterization laboratory and the skin over the device was prepped and draped in the usual sterile manner. Intermittent boluses of Versed, and fentanyl were used for sedation and analgesia as well as 1% subcutaneous lidocaine. An incision was made over the pre-existing device. Using blunt and Bovie dissection the pocket was opened and the device was removed. Careful attention was paid not to injure the pre-existing leads. The leads were removed from the device header and they were interrogated. There is normal lead function. Hemostasis was obtained. The pocket was flushed with antibiotic solution. The sponge and needle count were correct. The new device was brought to the field. The leads were placed in the appropriate position in the header and secured by the set screw. The leads and the device were then placed in the pocket. The pocket was closed with a deep layer of running 2-0 Vicryl, a superficial layer of running 4-0 Vicryl, skin with Steri-Strips which were covered with a rolled 4 x 4 and Tegaderm. Patient left the room with the device programmed to proper parameters and there were no complications. The device is a dual chamber Barry generator. All lead parameters were tested and found to be functionally normal. Lead and device serial and model numbers are available in the chart documents provided by the device company pharmacy sales representative procedure summary.
== END 2021-09-11 12:45 | disposition home or self-care (01) ==
PROVIDERS: Internal Medicine Cardiovascular Disease; Physician Assistant Medical; PCP Family Medicine; Referring Provider Internal Medicine Cardiovascular Disease; Visit Provider Internal Medicine Cardiovascular Disease
DX: Z45.02 Encounter for adjustment and management of automatic implantable cardiac defibrillator (principal); I25.810 Atherosclerosis of coronary artery bypass graft(s) without angina pectoris; I25.5 Ischemic cardiomyopathy; I10 Essential (primary) hypertension; E78.5 Hyperlipidemia, unspecified; Z79.82 Long term (current) use of aspirin; Z79.899 Other long term (current) drug therapy; I25.2 Old myocardial infarction; Z95.1 Presence of aortocoronary bypass graft; Z86.74 Personal history of sudden cardiac arrest; Z87.891 Personal history of nicotine dependence
CPT/HCPCS: 33263; 36415; 80048; 81001; 83880; 85025; 85027; 85610; 87635; 93641; 99152; 99153; C9803; J7040; J7050; U0003; U0005

== ENCOUNTER → 2021-12-02 | Outpatient (CLI) | payer MEDICARE, OTHER, SELFPAY ==
[2021-12-02 11:59] LABS: Anion Gap 8 (5-15); BUN 28 mg/dL (7-18); BUN/Creat Ratio 20.9 RATIO (10-20); Calcium,Total 8.8 mg/dL (8.5-10.1); Chloride 111 mmol/L (98-107); Creatinine, Serum 1.34 mg/dL (0.70-1.30); EST Glomerular Filtration Rate 54 mL/min (>60); Est Glom Filt Rate - Afr Amer 66 mL/min (>60); Glucose 96 mg/dL (74-106); Potassium 4.3 mmol/L (3.5-5.1); Sodium Level 142 mmol/L (136-145)
== END | disposition home or self-care (01) ==
LOC: LAB 11:01
PROVIDERS: PCP Family Medicine; Referring Provider Physician Assistant Medical; Visit Provider Physician Assistant Medical
DX: I25.5 Ischemic cardiomyopathy (principal)
CPT/HCPCS: 36415; 80048

== ENCOUNTER → 2022-12-28 | Outpatient (CLI) | payer MEDICARE, OTHER, SELFPAY ==
[2022-12-28 09:51] LABS: Absolute Lymphocyte Count 1.26 X10^3/uL (0.83-4.51); Absolute Neutrophil Count 3.1 X10^3/uL (2.0-7.7); Basophil# 0.03 X10^3/uL; Basophil% 0.6 % (0-1); Eosinophil# 0.09 X10^3/uL; Eosinophils% 1.8 % (0-5); Hematocrit 39.5 % (40-54); Hemoglobin 12.2 g/dL (13.0-16.5); Lymphocyte # 1.26 X10^3/ul (0.83-4.51); Lymphocyte % 25.8 % (19-41); Mean Corp Hgb Conc 30.9 g/dL (32-36); Mean Corpuscular Hgb 27.7 pg (27.0-32.0); Mean Corpuscular Volume 89.6 fL (80-94); Mean Platelet Vol. 12.1 fl (6.2-12.0); Monocyte# 0.39 X10^3/uL; NRBC Flagged by Analyzer 0 % (0-5); Neutrophil # 3.11 X10^3/uL (2.7-7.7); Neutrophil % 63.6 % (47-70); Platelet Count 148 K/mm3 (150-450); RBC Distribution Width SD 48.5 fl (35.1-43.9); Red Blood Count 4.41 M/mm3 (4.6-6.2); White Blood Count 4.9 K/mm3 (4.4-11.0)
[2022-12-28 10:26] LABS: ALB/GLOB Ratio 0.7 RATIO (0.9-2.4); AST(SGOT) 15 U/L (15-37); Alanine Aminotransfer ALT/SGPT 19 U/L (16-61); Albumin, Serum 3.2 g/dL (3.2-5.0); Alkaline Phosphatase 63 U/L (45-117); Anion Gap 8 (5-15); BUN 28 mg/dL (7-18); BUN/Creat Ratio 17.9 RATIO (10-20); Calcium,Total 8.4 mg/dL (8.5-10.1); Chloride 115 mmol/L (98-107); Creatinine, Serum 1.56 mg/dL (0.70-1.30); EST Glomerular Filtration Rate 46 mL/min (>60); Est Glom Filt Rate - Afr Amer 55 mL/min (>60); Globulin 4.9 g/dL (2.2-4.2); Glucose 120 mg/dL (74-106); Potassium 4.8 mmol/L (3.5-5.1); Protein, Total 8.1 g/dL (6.4-8.2); Sodium Level 142 mmol/L (136-145)
== END | disposition home or self-care (01) ==
LOC: LAB 09:32
PROVIDERS: PCP Family Medicine; Referring Provider Physician Assistant Medical; Visit Provider Physician Assistant Medical
DX: I10 Essential (primary) hypertension (principal); I25.810 Atherosclerosis of coronary artery bypass graft(s) without angina pectoris
CPT/HCPCS: 36415; 80053; 85025

== ENCOUNTER 2023-06-03 12:53 | Emergency (ER) | payer MEDICARE, OTHER, SELFPAY ==
[2023-06-03 12:56] VITALS: BP 130/88; PULSE 110; RESP 18; TEMP 36.8; O2SAT 97; BMI 29.5
[2023-06-03 14:04] VITALS: BP 123/79; PULSE 55; RESP 26; O2SAT 96
--- NOTE | 2023-06-03 14:56 | EX.ED.DYSGE1 ---
HPI <HUNTER Ibanez - Last Filed: 06/03/23 20:54> History of Present Illness Chief Complaint: Shortness of Breath Narrative Narrative: Patient presenting today due to shortness of breath with exertion that he has had intermittently over the past several months. He denies any orthopnea or shortness of breath at rest. He denies any history of blood clots/recent surgery/procedures/travel/immobilization. He denies any chest pain. He reports that he does get swelling to his bilateral lower extremities but does sleep in a reclining chair with his feet on the ground. He was given a prescription for Lasix but does not take it because a coworker told him that it was bad for him. He does have a PMH of CAD, CABG, ICD placement, ischemic cardiomyopathy, cardiac dysrhythmias, hyperlipidemia, and hypertension. PFSH <HUNTER Ibanez - Last Filed: 06/03/23 20:54> [facility] Medical History (Updated 06/03/23 @ 16:35 by HUNTER Ibanez) Atherosclerosis of coronary artery bypass graft(s) without angina pectoris Essential hypertension HTN (hypertension) Ischemic cardiomyopathy Old myocardial infarction Personal history of sudden cardiac arrest Pure hypercholesterolemia Home Medications aspirin 81 mg chewable tablet 81 mg PO DAILY@0800 01/10/13 [History Last Taken 01/10/13 15:00] carvedilol 12.5 mg tablet 12.5 mg PO BID #180 tabs 12/28/22 [Rx Last Taken Unknown] lisinopril 5 mg tablet 5 mg PO QDAY #90 tabs 12/28/22 [Rx Last Taken Unknown] eplerenone 25 mg tablet 25 mg PO QDAY #90 tabs 05/27/23 [Rx Last Taken Unknown] furosemide 40 mg tablet (Lasix) 40 mg PO DAILY #14 tabs 06/03/23 [Rx Last Taken Unknown] Allergy/AdvReac Type Severity Reaction Status Date / Time Rlyefmm-FBD-EwG Reductase AdvReac numbness, Verified 06/03/23 12:55 Inhibitor myalgias [Ogezzoz-Mpq-Sag Reductase Inhibitor] Family History Father CAD (coronary artery disease) Heart disease Surgical History Automatic implantable cardiac defibrillator in situ (01/23/13) History of bilateral cataract extraction History of left heart catheterization (LHC) Hx of CABG (~01/17/13) ICD (implantable cardioverter-defibrillator), dual, in situ Social History Smoking Status: Former smoker alcohol intake: current alcohol intake frequency: a few times a week Alcohol type: beer and wine substance use type: does not use caffeine: Yes Type: coffee what type of physical activity do you participate in: walking and bicycling frequency: 3-4 times per week duration: 15-30 minutes/day seatbelt use: always do you feel safe at home: Yes ROS <HUNTER Ibanez - Last Filed: 06/03/23 20:54> ROS ED Constitutional Constitutional ED: Denies chills or fever(s) Cardiovascular Cardiovascular: Denies chest pain, orthopnea or palpitations Respiratory/Chest Respiratory/Chest: Reports dyspnea on exertion; Denies cough, orthopnea, tachypnea or wheezing Gastrointestinal Gastrointestinal: Denies abdominal pain, nausea or vomiting Musculoskeletal Musculoskeletal: Denies arthralgias or myalgias Integumentary Denies rash Neurologic Neurologic: Denies weakness EXAM <HUNTER Ibanez - Last Filed: 06/03/23 20:54> Physical Exam Const Vital Signs: 06/03/23 12:56 06/03/23 14:01 06/03/23 14:04 Temperature 98.3 F Temperature Source Temporal Pulse Rate 110 H 55 L Respiratory Rate 18 26 H Respiratory Effort Normal Non-Labored Respiratory Depth Normal Respiratory Pattern Normal Blood Pressure 130/88 H 123/79 H Blood Pressure Mean 102 93 Pulse Ox 97 96 Oxygen Delivery Method Room Air Room Air Room Air 06/03/23 16:00 06/03/23 16:24 Temperature 98.1 F Temperature Source Pulse Rate 63 67 Respiratory Rate 25 H 20 H Respiratory Effort Respiratory Depth Respiratory Pattern Blood Pressure 136/81 H Blood Pressure Mean 99 Pulse Ox 99 98 Oxygen Delivery Method Room Air Positive well nourished, well developed and no apparent distress General Appearance ED: well developed HEENT Reports normocephalic and head/scalp atraumatic Mouth ED: Yes moist mucous membranes normal Eyes PERRL and EOMs intact bilaterally Neck full ROM and supple Chest Wall inspection of chest normal Resp normal respiratory effort and clear to auscultation bilaterally Cardio regular rate and regular rhythm GI soft to palpation, non-tender, non-distended and no masses Back/Spine normal ROM and normal to inspection Extremity full ROM Extremity Narrative: 1+ pitting edema bilaterally General Extremety ED: Yes edema General Extremity: edema Neuro oriented x3, CN's II-XII intact bilaterally, moves all extremities, no focal motor deficits and no sensory deficits noted Sensorium / Orientation: awake and alert Psych mental status grossly normal and thought process normal Skin no rashes or lesions noted and no wounds <Dr. Prosper Henning DO - Last Filed: 06/03/23 21:54> Physical Exam Const Vital Signs: 06/03/23 12:56 06/03/23 14:01 06/03/23 14:04 Temperature 98.3 F Temperature Source Temporal Pulse Rate 110 H 55 L Respiratory Rate 18 26 H Respiratory Effort Normal Non-Labored Respiratory Depth Normal Respiratory Pattern Normal Blood Pressure 130/88 H 123/79 H Blood Pressure Mean 102 93 Pulse Ox 97 96 Oxygen Delivery Method Room Air Room Air Room Air 06/03/23 16:00 06/03/23 16:24 Temperature 98.1 F Temperature Source Pulse Rate 63 67 Respiratory Rate 25 H 20 H Respiratory Effort Respiratory Depth Respiratory Pattern Blood Pressure 136/81 H Blood Pressure Mean 99 Pulse Ox 99 98 Oxygen Delivery Method Room Air [facility] <HUNTER Ibanez - Last Filed: 06/03/23 20:54> [facility] Narrative Medical decision making narrative: Patient presenting today due to shortness of breath with exertion he has had over the past few months. He reports that he just cannot take it anymore and decided to come in for evaluation. He admits that he does not follow-up with a PCP. He was given a prescription for Lasix at 1 point but was told by somebody at work that it was bad for you to, he does admit that it did help him with his symptoms. He is well-appearing and in no acute distress. He does not have any chest pain. Low Wells score, low suspicion for PE. He does have bilateral lower extremity edema, concerns for fluid overload. Cardiac workup will be obtained. BNP is elevated, chest x-ray does show bilateral pleural effusions. He was given IV Lasix. He was ambulated and did desaturate to 88% on room air, however he was not symptomatic at that point and did recover quickly. Given he became hypoxic, I did offer admission for further workup and diuresis. Patient declines and does not want to be admitted to the hospital, he would rather follow-up as an outpatient. I did review the risks associated with leaving such as and disability, he is understanding of the risks and has the capacity to make this decision. I will give him a prescription for Lasix and have encouraged that he follow-up with his PCP or cardiology next week. He is comfortable with plan and will be discharged home. Strict return instructions discussed. Lab Data Attestation: I reviewed the patient's lab results. Lab results narrative: BUN 29, creatinine 1.59, BNP 1180 Labs: Laboratory Results - last 24 hr 06/03/23 15:00 WBC 5.1 RBC 4.69 Hgb 13.0 Hct 41.0 MCV 87.4 MCH 27.7 MCHC 31.7 L RDW Std Deviation 54.4 H RDW Coeff of Noel 17.4 H Plt Count 105 L MPV 12.8 H Immature Gran % (Auto) 0.600 Neut % (Auto) 68.7 Lymph % (Auto) 20.1 Otoe % (Auto) 7.8 Eos % (Auto) 2.0 Baso % (Auto) 0.8 Absolute Neuts (auto) 3.5 Absolute Lymphs (auto) 1.03 Nucleated RBC % 0 Sodium 144 Potassium 3.7 Chloride 116 H Carbon Dioxide 23.0 Anion Gap 5 BUN 29 H Creatinine 1.59 H Estim Creat Clear Calc 47.43 Est GFR (MDRD) Af Amer 54 L Est GFR (MDRD) Non-Af 44 L BUN/Creatinine Ratio 18.2 Glucose 106 Calcium 8.3 L Troponin I High Sens 19 B-Natriuretic Peptide 1180.4 H Radiography X-Ray: Read by ED Physician Diagnostic Testing: Clinical Impression(s) from Imaging Studies Chest X-Ray 06/03/23 15:05 IMPRESSION: Bilateral pleural effusions right greater than left with loculated fluid in the right major fissure. Electronically Signed: Jey Claire MD at 15:24 EDT , EKG Initial EKG: Comments: 63 bpm, sinus rhythm with first-degree AV block, right bundle branch block, left anterior fascicular block, no ST elevation, reviewed and interpreted by attending ED physician <Dr. Prosper Henning, DO - Last Filed: 06/03/23 21:54> [facility] Narrative Medical decision making narrative: Patient presenting today due to shortness of breath with exertion he has had over the past few months. He reports that he just cannot take it anymore and decided to come in for evaluation. He admits that he does not follow-up with a PCP. He was given a prescription for Lasix at 1 point but was told by somebody at work that it was bad for you to, he does admit that it did help him with his symptoms. He is well-appearing and in no acute distress. He does not have any chest pain. Low Wells score, low suspicion for PE. He does have bilateral lower extremity edema, concerns for fluid overload. Cardiac workup will be obtained. BNP is elevated, chest x-ray does show bilateral pleural effusions. He was given IV Lasix. He was ambulated and did desaturate to 88% on room air, however he was not symptomatic at that point and did recover quickly. Given he became hypoxic, I did offer admission for further workup and diuresis. Patient declines and does not want to be admitted to the hospital, he would rather follow-up as an outpatient. I did review the risks associated with leaving such as and disability, he is understanding of the risks and has the capacity to make this decision. I will give him a prescription for Lasix and have encouraged that he follow-up with his PCP or cardiology next week. He is comfortable with plan and will be discharged home. Strict return instructions discussed. ED attending note: I evaluated the patient in conjunction with the [facility]. I agree with his/her statements and above findings. I have personally performed a face to face assessment of the patient and have reviewed the [facility] Note. I performed a substantive portion of the visit including all aspects of the following. I personally saw the patient performed chart review, physical exam, reviewed labs, imaging (if obtained), and formulated a treatment and management plan. This note was generated with [employer] software. It may contain incorrect words, spelling, and punctuation that were not noted in review of the chart prior to signing. Lab Data Labs: Laboratory Results - last 24 hr 06/03/23 15:00 WBC 5.1 RBC 4.69 Hgb 13.0 Hct 41.0 MCV 87.4 MCH 27.7 MCHC 31.7 L RDW Std Deviation 54.4 H RDW Coeff of Noel 17.4 H Plt Count 105 L MPV 12.8 H Immature Gran % (Auto) 0.600 Neut % (Auto) 68.7 Lymph % (Auto) 20.1 Otoe % (Auto) 7.8 Eos % (Auto) 2.0 Baso % (Auto) 0.8 Absolute Neuts (auto) 3.5 Absolute Lymphs (auto) 1.03 Nucleated RBC % 0 Sodium 144 Potassium 3.7 Chloride 116 H Carbon Dioxide 23.0 Anion Gap 5 BUN 29 H Creatinine 1.59 H Estim Creat Clear Calc 47.43 Est GFR (MDRD) Af Amer 54 L Est GFR (MDRD) Non-Af 44 L BUN/Creatinine Ratio 18.2 Glucose 106 Calcium 8.3 L Troponin I High Sens 19 B-Natriuretic Peptide 1180.4 H Radiography Diagnostic Testing: Clinical Impression(s) from Imaging Studies Chest X-Ray 06/03/23 15:05 IMPRESSION: Bilateral pleural effusions right greater than left with loculated fluid in the right major fissure. Electronically Signed: Jey Claire MD at 15:24 EDT Reading Location ID and State: [address] [place] [address] , Service support , Discharge Plan Triage Chief Complaint: Shortness of Breath ED Midlevel Provider: Mary Perkins ED Provider: Prosper Henning Dx/Rx/DC Orders Clinical Impression: SOB (shortness of breath) on exertion, CHF (congestive heart failure), Pleural effusion Instructions: ED Heart Failure, Congestive (CHF), ED Pleural Effusion Prescriptions: New furosemide [Lasix] 40 mg tablet 40 mg PO DAILY Qty: 14 0RF No Action lisinopril 5 mg tablet 5 mg PO QDAY Qty: 90 3RF carvedilol 12.5 mg tablet 12.5 mg PO BID Qty: 180 3RF aspirin 81 MG tablet,chewable 81 mg PO DAILY@0800 Patient Comments: BLOOD THINNER eplerenone 25 mg tablet 25 mg PO QDAY Qty: 90 3RF Primary Care Provider: Grayson Gentile Referrals: Grayson Gentile MD [Primary Care Provider] - Renée Mena PA [Med Staff - [facility] Practice [facility]] - 5-7 Days Activity Restrictions/Additional Instructions: Please follow-up with cardiology and return for any worsening of your symptoms. Disposition Disposition: Home, Self Care Discharge Date/Time: 06/03/23 16:43
--- NOTE | 2023-06-03 15:05 | RAD_ITS ---
STUDY: X-RAY CHEST REASON FOR EXAM: Male, 82 years old. Chest pain and shortness of breath. TECHNIQUE: PA and lateral views of the chest. COMPARISON: Comparison is made with prior study June 08, 2021. FINDINGS: EKG electrodes are seen. There is evidence of a loculated effusion in the right major fissure as well as bilateral pleural effusions worse on the right side. Increased markings are seen at the lung bases suggestive of atelectasis and/or scarring. Sternal cerclage wires and vascular clips are present from a prior sternotomy and coronary artery bypass graft procedure (CABG). A left-sided dual-chamber pacemaker is seen. Moderate cardiomegaly. Normal mediastinum and ginny. Normal visualized pulmonary arteries. Normal visualized aortic arch and descending thoracic aorta. There are diffuse degenerative changes of the visualized thoracic spine. Normal visualized ribs, clavicles, and shoulders. There is no demonstrated abnormality of the visualized soft tissue structures of the upper abdomen. RAD/Chest PA and Lateral IMPRESSION: Bilateral pleural effusions right greater than left with loculated fluid in the right major fissure. Electronically Signed: Jey Claire MD at 15:24 EDT ,
[2023-06-03 15:12] LABS: Absolute Lymphocyte Count 1.03 X10^3/uL (0.83-4.51); Absolute Neutrophil Count 3.5 X10^3/uL (2.0-7.7); Basophil# 0.04 X10^3/uL; Basophil% 0.8 % (0-1); Lymphocyte # 1.03 X10^3/ul (0.83-4.51); Lymphocyte % 20.1 % (19-41); Mean Corp Hgb Conc 31.7 g/dL (32-36); Mean Corpuscular Hgb 27.7 pg (27.0-32.0); Mean Corpuscular Volume 87.4 fL (80-94); Mean Platelet Vol. 12.8 fl (6.2-12.0); Monocyte% 7.8 % (0-10); NRBC Flagged by Analyzer 0 % (0-5); Neutrophil # 3.52 X10^3/uL (2.7-7.7); Neutrophil % 68.7 % (47-70); Platelet Count 105 K/mm3 (150-450); RBC Distribution Width CV 17.4 % (11.6-14.6); RBC Distribution Width SD 54.4 fl (35.1-43.9); Red Blood Count 4.69 M/mm3 (4.6-6.2); White Blood Count 5.1 K/mm3 (4.4-11.0)
[2023-06-03 15:24] LABS: BNP,B-Type NATRIURETIC PEPTIDE 1180.4 pg/mL (0-100)
[2023-06-03 15:27] LABS: Anion Gap 5 (5-15); BUN 29 mg/dL (7-18); BUN/Creat Ratio 18.2 RATIO (10-20); Calcium,Total 8.3 mg/dL (8.5-10.1); Chloride 116 mmol/L (98-107); Creatinine, Serum 1.59 mg/dL (0.70-1.30); EST Glomerular Filtration Rate 44 mL/min (>60); Est Glom Filt Rate - Afr Amer 54 mL/min (>60); Estimated Creatinine Clearance 47.43 ml/min; Glucose 106 mg/dL (74-106); Potassium 3.7 mmol/L (3.5-5.1); Sodium Level 144 mmol/L (136-145); Troponin-I HS 19 pg/mL (3.0-78.0)
[2023-06-03 16:00] VITALS: PULSE 63; RESP 25; O2SAT 99
[2023-06-03 16:17] VITALS: O2SAT 98
[2023-06-03 16:24] VITALS: BP 136/81; PULSE 67; RESP 20; TEMP 36.7; O2SAT 98
[2023-06-03] MEDS: Furosemide 40 MG/4 ML Vial IV (16:28)
--- OUTSIDE RECORDS SUMMARY | 2023-06-03 21:06 | XMS RPT_ITS | CCD ---
Author Name Unknown Address [address] [place] [address] Organization [facility] Care Team Providers Care Video Game Tester Name Role Phone Geraldine Vargas Unavailable Unavailable Geraldine Vargas Unavailable Unavailable Mirian GARCÍA, Racquel Hernandez Unavailable Unavailable Casey Shipman Unavailable Unavailable Geraldine Vargas Unavailable Unavailable Geraldine Vargas Unavailable Unavailable Allergies Allergy Classification Reported Allergen(s) Allergy Type Date of Onset Reaction(s) Facility (6 sources) Hmg-Coa Reductase Inhibitors (Statins) drug allergy 6 numbness/mylgia s [facility] Work Phone: [phone] (4 sources) NKDA; Translations: [NKDA] allergy to substance 3 [facility] Work Phone: [phone] Medications Completed/Discontinued Medications Medication Drug Class(es) Dates Sig (Normalized) Sig (Original) amiodarone hydrochloride 200 mg oral tablet (12 sources) Antiarrhythmic Start: 02-23-2013 End: 04-03-2013 take 1 tablet by mouth once daily AMIODARONE HCL 200 MG TABS One tablet by mouth daily AMIODARONE HCL [id number] Renée Mena PA-C aspirin 81 mg delayed release oral tablet (10 sources) Platelet Aggregation Inhibitor, Nonsteroidal Anti-inflammatory Drug Start: 04-03-2013 take 1 tablet by mouth once daily ASPIRIN EC 81 MG TBEC One tablet by mouth daily ASPIRIN [id number] Casey Shipman ASPIRIN TBEC (2 sources) Start: 04-03-2013 take 1 tablet by mouth once daily ASPIR-81 TBEC One tablet by mouth daily ASPIRIN TBEC [id number] Tre Aldrich MD atorvastatin 80 mg oral tablet (12 sources) HMG-CoA Reductase Inhibitor Start: 02-20-2013 End: 08-08-2014 take 1 tablet by mouth once daily at bedtime ATORVASTATIN CALCIUM 80 MG TABS One tablet by mouth daily at bedtime ATORVASTATIN CALCIUM [id number] Tre Aldrich MD carvedilol 6.25 mg oral tablet (12 sources) alpha-Adrenergic Broderick, beta-Adrenergic Broderick Start: 04-03-2013 take 1 tablet by mouth twice daily COREG 6.25 MG TABS One tablet by mouth twice daily CARVEDILOL [id number] Tre Aldrich MD Problems Active Problems Problem Classification Problem Date Documented Date Episodic/Chronic Acute myocardial infarction (6 sources) Subsequent ST elevation (STEMI) myocardial infarction of unspecified site; Translations: [Subsequent ST elevation (STEMI) myocardial infarction of unspecified site] Onset: 02-03-2013 02-03-2013 Chronic Cardiac arrest and ventricular fibrillation (6 sources) Ventricular fibrillation; 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] Onset: 02-03-2013 02-03-2013 Chronic Complication of device; implant or graft (6 sources) Atherosclerosis of coronary artery bypass graft(s) without angina pectoris; Translations: [Atherosclerosis of coronary artery bypass graft(s) without angina pectoris] Onset: 10-15-2015 10-15-2015 Chronic Conduction disorders (6 sources) Presence of automatic (implantable) cardiac defibrillator; Translations: [Presence of automatic (implantable) cardiac defibrillator] Onset: 04-03-2013 04-03-2013 Chronic Congestive heart failure; nonhypertensive (6 sources) Left ventricular failure, unspecified; Translations: [Left ventricular failure] Onset: 02-14-2013 02-14-2013 Chronic Coronary atherosclerosis and other heart disease (20 sources) Coronary arteriosclerosis; Translations: [Old myocardial infarction] Onset: 02-03-2013 Resolved: 04-08-2016 04-08-2016 Chronic Disorders of lipid metabolism (6 sources) Hyperlipidemia; Translations: [Hyperlipidemia, unspecified] Onset: 03-01-2013 03-01-2013 Chronic Essential hypertension (6 sources) Hypertensive disorder; Translations: [Essential (primary) hypertension] Onset: 02-03-2013 02-03-2013 Chronic Heart valve disorders (6 sources) Aortic valve regurgitation; Translations: [Nonrheumatic aortic (valve) insufficiency] Onset: 02-14-2013 02-14-2013 Chronic Other nutritional; endocrine; and metabolic disorders (16 sources) Body mass index (BMI) 31.0-31.9, adult; Translations: [Body mass index (BMI) 30.0-30.9, adult] Onset: 05-19-2013 Resolved: 12-10-2015 04-08-2015 Chronic Other nutritional; endocrine; and metabolic disorders (8 sources) Body mass index (BMI) 30.0-30.9, adult; Translations: [Body mass index (BMI) 30.0-30.9, adult] Onset: 05-19-2013 05-19-2013 Chronic Unclassified (2 sources) Coronary artery bypass grafts x 3 ; Translations: [Presence of coronary angioplasty implant and graft] Onset: 02-03-2013 02-03-2013 Unclassified (8 sources) Long-term drug therapy; Translations: [Long-term (current) use of other medications] Onset: 03-01-2013 03-01-2013 Past or Other Problems Problem Classification Problem Date Documented Da te Episodic/Chronic Other aftercare (4 sources) Long-term (current) use of other medications; Translations: [Other lobsterman (current) drug therapy] Onset: 03-01-2013 03-01-2013 Episodic Other circulatory disease (6 sources) History of cardiac arrest; Translations: [Personal history of sudden cardiac arrest] Onset: 02-03-2013 04-08-2016 Episodic Other nutritional; endocrine; and metabolic disorders (18 sources) Body mass index (BMI) 29.0-29.9, adult; Translations: [Body mass index (BMI) 29.0-29.9, adult] Onset: 04-03-2013 Resolved: 12-10-2015 12-10-2015 Episodic Residual codes; unclassified (6 sources) Family history of ischemic heart disease and other diseases of the circulatory system; Translations: [Family history of ischemic heart disease and other diseases of the circulatory system] 09-01-2013 Episodic Results Test Name Value Interpretation Reference Range Facil ity Vital Signs Date Time Vital Sign Value Performing Clinician Itzel martinez 10-14-2016 09:12-0400 BMI (Body Mass Index) 30.72 kg/m2 Geraldine Shearer [facility] Work Phone: 10-14-2016 09:12-0400 BP Diastolic 82 mm[Hg] Geraldine [facility] Work Phone: 10-14-2016 09:12-0400 BP Systolic 118 mm[Hg] Geraldine [facility] Work Phone: 10-14-2016 09:12-0400 Height 190.5 cm Geraldine [facility]arer [facility] Work Phone: 10-14-2016 09:12-0400 Pulse (Heart Rate) 68 /min Geraldine [facility] Work Phone: 10-14-2016 09:12-0400 Respiratory Rate 20 /min Geraldine [facility] Work Phone: 10-14-2016 09:12-0400 Weight 111.49 kg Geraldine [facility] Work Phone: 04-13-2016 08:33-0500 BMI (Body Mass Index) 31.74 kg/m2 Rac[facility] Work Phone: 04-13-2016 08:33-0500 BP Diastolic 80 mm[Hg] Racquel Vela RN [facility] Work Phone: 04-13-2016 08:33-0500 BP Systolic 138 mm[Hg] Racquel Vela RN [facility] Work Phone: 04-13-2016 08:33-0500 BSA (Body Surface Area) 2.43 m2 Racquel Vela RN [facility] Work Phone: 04-13-2016 08:33-0500 Pulse (Heart Rate) 60 /min Racquel Vela RN [facility] Work Phone: 04-13-2016 08:33-0500 Respiratory Rate 16 /min Racquel Vela RN [facility] Work Phone: 04-13-2016 08:33-0500 Weight 115.21 kg Racquel Vela RN [facility] Work Phone: 04-03-2013 14:52-0500 Heart rate 60 /min Racquel Vela RN [facility] Work Phone: 04-03-2013 14:52-0500 Heart rate 488 ms Racquel Vela RN [facility] Work Phone: 02-23-2013 08:36-0500 Body Temperature 97.5 [degF] Racquel Vela RN [facility] Work Phone: 02-23-2013 08:36-0500 Height 190.5 cm Racquel Vela RN [facility] Work Phone: Procedures Date Procedure Procedure Detail Performing Clinician Start: 10-14-2016 End: 10-14-2016 Follow Up Appt 6 months Renée dunn PA-C Work Phone: Start: 10-14-2016 End: 10-14-2016 PFM Renée Mena PA-C Work Phone: Start: 04-13-2016 End: 04-13-2016 Dietary management education, guidance, and counseling Racquel Vela RN Start: 04-13-2016 End: 10-02-2016 *Hepatic Function Panel Tre Aldrich MD Start: 04-13-2016 End: 04-13-2016 Device Interrogation Tre Aldrich MD Start: 04-13-2016 End: 04-13-2016 Follow Up Appt 6 months Tre Aldrich MD Start: 04-13-2016 End: 10-02-2016 Lipid panel [AGGREGATE] Tre Aldrich MD Start: 04-13-2016 End: 04-13-2016 MMM Tre Aldrich MD Start: 12-10-2015 End: 03-19-2016 *Hepatic Function Panel Renée dunn PA-C Work Phone: Start: 12-10-2015 End: 12-10-2015 Follow Up Appt 6 months Renée dunn PA-C Work Phone: Start: 12-10-2015 End: 03-19-2016 Lipid panel [AGGREGATE] Renée dunn PA-C Work Phone: Start: 12-10-2015 End: 12-10-2015 PFM Renée eMna PA-C Work Phone: Start: 04-08-2015 End: 12-10-2015 *Hepatic Function Panel Tre Aldrich MD Start: 04-08-2015 End: 04-08-2015 Follow Up Appt 6 months Tre Aldrich MD Start: 04-08-2015 End: 12-10-2015 Lipid panel [AGGREGATE] Tre Aldrich MD Start: 04-08-2015 End: 04-08-2015 MMM Tre Aldrich MD Start: 02-25-2015 End: 10-14-2015 Follow Up Appt 6 months Renée dunn PA-C Work Phone: Start: 02-25-2015 End: 02-26-2015 Icd device progr eval, dual Renée Pepe PA-C Work Phone: Start: 02-25-2015 End: 10-14-2015 Pacer Clinic Renée Mena PA-C Work Phone: Start: 02-08-2015 End: 10-14-2015 *Hepatic Function Panel Renée dunn PA-C Work Phone: Start: 02-08-2015 End: 10-14-2015 Lipid panel [AGGREGATE] Renée dunn PA-C Work Phone: Start: 10-11-2014 End: 10-14-2015 Follow Up Appt 6 months Renée dunn PA-C Work Phone: Start: 10-11-2014 End: 10-15-2014 Icd device progr eval, dual Renée Pepe PA-C Work Phone: Start: 10-11-2014 End: 10-14-2015 Pacer Clinic Renée Mena PA-C Work Phone: Start: 08-08-2014 End: 08-08-2014 *Hepatic Function Panel Renée dunn PA-C Work Phone: Start: 08-08-2014 End: 08-09-2014 Documentation of current medications Renée Mena PA-C Work Phone: Start: 08-08-2014 End: 08-08-2014 Follow Up Appt 6 months Renée dunn PA-C Work Phone: Start: 08-08-2014 End: 08-08-2014 Lipid panel [AGGREGATE] Renée dunn PA-C Work Phone: Start: 08-08-2014 End: 08-08-2014 PFM Renée Mena PA-C Work Phone: Start: 04-05-2014 End: 08-01-2014 Follow Up Appt 6 months Tre Aldrich MD Start: 04-05-2014 End: 04-05-2014 Icd device progr eval, dual Tre beltre MD Start: 04-05-2014 End: 08-01-2014 Pacer Clinic Tre Aldrich MD Start: 02-19-2014 End: 08-08-2014 *Hepatic Function Panel Tre Aldrich MD Start: 02-19-2014 End: 08-08-2014 Lipid panel [AGGREGATE] Tre Aldrich MD Start: 02-09-2014 End: 08-01-2014 *Hepatic Function Panel Tre Aldrich MD Start: 02-09-2014 End: 02-09-2014 Follow Up Appt 6 months Tre Aldrich MD Start: 02-09-2014 End: 08-01-2014 Lipid panel [AGGREGATE] Tre Aldrich MD Start: 02-09-2014 End: 02-09-2014 MMM Tre Aldrich MD Start: 09-01-2013 End: 09-11-2013 *Hepatic Function Panel Tre Aldrich MD Start: 09-01-2013 End: 02-09-2014 Follow Up Appt 6 months Tre Adlrich MD Start: 09-01-2013 End: 09-11-2013 Lipid panel [AGGREGATE] Tre Aldrich MD Start: 09-01-2013 End: 02-09-2014 PFM Tre Aldrich MD Start: 07-12-2013 End: 02-09-2014 Follow Up Appt 6 months Tre Aldrich MD Start: 07-12-2013 End: 07-12-2013 Icd device progr eval, dual Tre beltre MD Start: 07-12-2013 End: 02-09-2014 Pacer Clinic Tre Aldrich MD Start: 05-20-2013 End: 09-01-2013 *Hepatic Function Panel Renée dunn PA-C Work Phone: Start: 05-20-2013 End: 09-01-2013 Lipid panel [AGGREGATE] Renée dunn PA-C Work Phone: Start: 05-19-2013 End: 2013 Echocardiography Tre Aldrich MD Start: 05-19-2013 End: 05-19-2013 Follow Up Appt 3 months Tre Aldrich MD Start: 05-19-2013 End: 05-19-2013 PFM Tre Aldrich MD Start: 04-03-2013 End: 04-03-2013 Device Interrogation Tre Aldrich MD Start: 04-03-2013 End: 04-03-2013 Electrocardiogram, complete Tre beltre MD Start: 04-03-2013 End: 04-03-2013 Follow Up Appt 6 weeks Tre Aldrich MD Start: 04-03-2013 End: 04-03-2013 PFM Tre Aldrich MD Start: 02-23-2013 End: 02-27-2013 *Hepatic Function Panel Renée dunn PA-C Work Phone: Start: 02-23-2013 End: 02-09-2014 Cardiac Rehab Renée Mena PA-C Work Phone: Start: 02-23-2013 End: 02-09-2014 Cardiovascular stress test using treadmill Renée Mena PA-C Work Phone: Start: 02-23-2013 End: 02-23-2013 Device Interrogation Renée gordon PA-C Work Phone: Start: 02-23-2013 End: 02-23-2013 Electrocardiogram, complete Renée Pepe PA-C Work Phone: Start: 02-23-2013 End: 02-23-2013 Follow Up Appt 6 weeks Renée cary PA-C Work Phone: Start: 02-23-2013 End: 02-27-2013 Lipid panel [AGGREGATE] Renée dunn PA-C Work Phone: Start: 02-23-2013 End: 02-23-2013 PFM Renée Mena PA-C Work Phone: Start: 02-03-2013 Coronary artery bypass grafts x 3 CORONARY ARTERY BYPASS GRAFT, THREE VESSEL, HX OF Racquel Vela RN Plan of Treatment Date Care Activity Detail Author Start: 04-14-2017 End: 04-14-2017 Appointment Appointment [facility] Work Phone: Start: 03-19-2017 End: 03-20-2016 *Hepatic Function Panel *Hepatic Function Panel [facility] Work Phone: Start: 03-19-2017 End: 03-20-2016 Lipid panel [AGGREGATE] *Lipid Profile CC PCP [facility] Work Phone: Start: 10-14-2016 End: 10-14-2016 Appointment Appointment [facility] Work Phone: Start: 10-14-2016 End: 10-14-2016 Follow Up Appt 6 months Follow Up Appt 6 months [facility] Work Phone: Start: 10-14-2016 End: 10-14-2016 PFM PFM [facility] Work Phone: Start: 04-13-2016 End: 10-02-2016 *Hepatic Function Panel *Hepatic Function Panel [facility] Work Phone: Start: 04-13-2016 End: 04-13-2016 Device Interrogation Device Interrogation [facility] Work Phone: Start: 04-13-2016 End: 04-13-2016 Follow Up Appt 6 months Follow Up Appt 6 months [facility] Work Phone: Start: 04-13-2016 End: 10-02-2016 Lipid panel [AGGREGATE] *Lipid Profile CC PCP [facility] Work Phone: Start: 04-13-2016 End: 04-13-2016 MMM MMM [facility] Work Phone: Start: 12-10-2015 End: 03-19-2016 *Hepatic Function Panel *Hepatic Function Panel [facility] Work Phone: Start: 12-10-2015 End: 12-10-2015 Follow Up Appt 6 months Follow Up Appt 6 months [facility] Work Phone: Start: 12-10-2015 End: 03-19-2016 Lipid panel [AGGREGATE] *Lipid Profile CC PCP [facility] Work Phone: Start: 12-10-2015 End: 12-10-2015 PFM PFM [facility] Work Phone: Start: 04-08-2015 End: 12-10-2015 *Hepatic Function Panel *Hepatic Function Panel [facility] Work Phone: Start: 04-08-2015 End: 04-08-2015 Follow Up Appt 6 months Follow Up Appt 6 months [facility] Work Phone: Start: 04-08-2015 End: 12-10-2015 Lipid panel [AGGREGATE] *Lipid Profile CC PCP [facility] Work Phone: Start: 04-08-2015 End: 04-08-2015 MMM MMM [facility] Work Phone: Start: 02-25-2015 End: 10-14-2015 Follow Up Appt 6 months Follow Up Appt 6 months [facility] Work Phone: Start: 02-25-2015 End: 10-14-2015 Pacer Clinic Pacer Clinic [facility] Work Phone: Start: 02-08-2015 End: 10-14-2015 *Hepatic Function Panel *Hepatic Function Panel [facility] Work Phone: Start: 02-08-2015 End: 10-14-2015 Lipid panel [AGGREGATE] *Lipid Profile CC PCP [facility] Work Phone: Start: 10-11-2014 End: 10-14-2015 Follow Up Appt 6 months Follow Up Appt 6 months [facility] Work Phone: Start: 10-11-2014 End: 10-14-2015 Pacer Clinic Pacer Clinic [facility] Work Phone: Start: 08-08-2014 End: 08-08-2014 *Hepatic Function Panel *Hepatic Function Panel [facility] Work Phone: Start: 08-08-2014 End: 08-08-2014 Follow Up Appt 6 months Follow Up Appt 6 months [facility] Work Phone: Start: 08-08-2014 End: 08-08-2014 Lipid panel [AGGREGATE] *Lipid Profile CC PCP [facility] Work Phone: Start: 08-08-2014 End: 08-08-2014 PFM PFM [facility] Work Phone: Start: 04-05-2014 End: 08-01-2014 Follow Up Appt 6 months Follow Up Appt 6 months [facility] Work Phone: Start: 04-05-2014 End: 08-01-2014 Pacer Clinic Pacer Clinic [facility] Work Phone: Start: 02-19-2014 End: 08-08-2014 *Hepatic Function Panel *Hepatic Function Panel [facility] Work Phone: Start: 02-19-2014 End: 08-08-2014 Lipid panel [AGGREGATE] *Lipid Profile CC PCP [facility] Work Phone: Start: 02-09-2014 End: 08-01-2014 *Hepatic Function Panel *Hepatic Function Panel [facility] Work Phone: Start: 02-09-2014 End: 02-09-2014 Follow Up Appt 6 months Follow Up Appt 6 months [facility] Work Phone: Start: 02-09-2014 End: 08-01-2014 Lipid panel [AGGREGATE] *Lipid Profile CC PCP [facility] Work Phone: Start: 02-09-2014 End: 02-09-2014 MMM MMM [facility] Work Phone: Start: 09-01-2013 End: 09-11-2013 *Hepatic Function Panel *Hepatic Function Panel [facility] Work Phone: Start: 09-01-2013 End: 02-09-2014 Follow Up Appt 6 months Follow Up Appt 6 months [facility] Work Phone: Start: 09-01-2013 End: 09-11-2013 Lipid panel [AGGREGATE] *Lipid Profile CC PCP [facility] Work Phone: Start: 09-01-2013 End: 02-09-2014 PFM PFM [facility] Work Phone: Start: 07-12-2013 End: 02-09-2014 Follow Up Appt 6 months Follow Up Appt 6 months [facility] Work Phone: Start: 07-12-2013 End: 02-09-2014 Pacer Clinic [email or web address] Work Phone: Start: 05-20-2013 End: 09-01-2013 *Hepatic Function Panel *Hepatic Function Panel [facility] Work Phone: Start: 05-20-2013 End: 09-01-2013 Lipid panel [AGGREGATE] *Lipid Profile CC PCP [email or web address] Work Phone: Start: 05-19-2013 End: 05-19-2013 Echocardiography Echocardiogram (complete) [email or web address] Work Phone: Start: 05-19-2013 End: 05-19-2013 Follow Up Appt 3 months Follow Up Appt 3 months [facility] Work Phone: Start: 05-19-2013 End: 05-19-2013 PFM PFM [facility] Work Phone: Start: 04-03-2013 End: 04-03-2013 Device Interrogation Device Interrogation [facility] Work Phone: Start: 04-03-2013 End: 04-03-2013 Electrocardiogram, complete EKG (In office) [facility] Work Phone: Start: 04-03-2013 End: 04-03-2013 Follow Up Appt 6 weeks Follow Up Appt 6 weeks [facility] Work Phone: Start: 04-03-2013 End: 04-03-2013 PFM PFM [facility] Work Phone: Start: 02-23-2013 End: 02-27-2013 *Hepatic Function Panel *Hepatic Function Panel [email or web address] Work Phone: Start: 02-23-2013 End: 02-09-2014 Cardiac Rehab Cardiac Rehab [facility] Work Phone: Start: 02-23-2013 End: 02-23-2013 Cardiovascular stress test using treadmill Treadmill stress test (no imaging) [facility] Work Phone: Start: 02-23-2013 End: 02-23-2013 Device Interrogation Device Interrogation [facility] Work Phone: Start: 02-23-2013 End: 02-23-2013 Electrocardiogram, complete EKG (In office) [facility] Work Phone: Start: 02-23-2013 End: 02-23-2013 Follow Up Appt 6 weeks Follow Up Appt 6 weeks [facility] Work Phone: Start: 02-23-2013 End: 02-27-2013 Lipid panel [AGGREGATE] *Lipid Profile CC PCP [facility] Work Phone: Start: 02-23-2013 End: 02-23-2013 PFM PFM [facility] Work Phone: Patient Education [facility] Work Phone: Progress note 07-30-2020 Note Date & Type Note Facility 07-30-2020 Note HNO ID: [id number] Author: Brooklynn Pabon Ma Service: ? Author Type: ? Type: Progress Notes Filed: 07/30/2020 1:19 PM Note Text: POPULATION HEALTH NAVIGATION OUTREACH Action/FYI Appointment was canceled by [facility] staff in December but did not r/s patient. Left detailed message patient needs physical Contact made with patient or family member? NO Pt identified by name and : NO Outreach Outcome/Action Unable to reach patient: Left message Reason for Outreach Care Gap or Scheduling/Wellness visits Payer: Payor: MMO / Plan: [employer] / Product Type: PPO / Care Gap Reviewed:: Annual Wellness visit Reminder: Reminder note to check Health Maintenance for items below Health Maintenance items due: DEPRESSION SCREENING Never done BP CONTROLLED (<130/80) Never done DTAP,TDAP,TD(1 - Tdap) Never done COLORECTAL CANCER SCREENING Never done SHINGRIX VACCINE(1 of 2) Never done ADVANCE DIRECTIVE DISCUSSION Never done LDL CHOLESTEROL due on 07/21/2014 Advanced Directives Completed: Have you ever planned for future healthcare decisions with a power of steam shovel engineer, living will, or advance directives? Yes. Have you shared those records with your doctor? Yes Referrals: N/A Message Sent to Practice: NO Navigation Signature: Brooklynn Pabon Ma July 30, 2020 1:18 PM [facility] Clinical Note 07-30-2020 Note Date & Type Note Facility 07-30-2020 Note Patient Outreach (FA MPWS) MAC MEADOWS ([id number]) 1940 M Date Time Provider Department 07/30/20 BRYANNA BURNETTE During your visit today, we recorded the following information about you: Brooklynn Pabon Ma 07/30/2020 1:19 PM Signed POPULATION HEALTH NAVIGATION OUTREACH Action/FYI Appointment was canceled by [facility] staff in December but did not r/s patient. Left detailed message patient needs physical Contact made with patient or family member? NO Pt identified by name and : NO Outreach Outcome/Action Unable to reach patient: Left message Reason for Outreach Care Gap or Scheduling/Wellness visits Payer: Payor: MMO / Plan: MMO [employer] / Product Type: PPO / Care Gap Reviewed:: Annual Wellness visit Reminder: Reminder note to check Health Maintenance for items below Health Maintenance items due: DEPRESSION SCREENING Never done BP CONTROLLED (<130/80) Never done DTAP,TDAP,TD(1 - Tdap) Never done COLORECTAL CANCER SCREENING Never done SHINGRIX VACCINE(1 of 2) Never done ADVANCE DIRECTIVE DISCUSSION Never done LDL CHOLESTEROL due on 07/21/2014 Advanced Directives Completed: Have you ever planned for future healthcare decisions with a power of steam shovel engineer, living will, or advance directives? Yes. Have you shared those records with your doctor? Yes Referrals: N/A Message Sent to Practice: NO Navigation Signature: Brooklynn Pabon Ma July 30, 2020 1:18 PM Allergies As of Date: 07/30/2020 (No Known Allergies) Date Reviewed: 08/01/2019 Reviewed by: Bryanna Burnette - Fully Assessed Reason for Visit: Appointment [[id number]] Cmt: HTN Prescriptions as of 07/30/2020 Sig: ASPIRIN 81 MG TABLET,DELAYED * Take 1 tablet by mouth once d* LISINOPRIL 5 MG TABLET Take 1 tablet by mouth once d* CARVEDILOL 6.25 MG TABLET Take 1 tablet by mouth once d* Problem List As Of Date 07/30/2020 Noted Resolved History of RI (myocardial infarction) [I25.2] CAD (coronary artery disease) [I25.10] HTN (hypertension) [I10] Arrhythmia [I49.9] Anal fissure [K60.2] 03/31/2013 Gout [M10.9] 07/25/2013 Mixed hyperlipidemia [E78.2] Gross hematuria [R31.0] 06/27/2019 Elevated PSA [R97.20] 07/10/2019 Benign prostatic hyperplasia with urinary frequ*07/10/2019 Anemia [D64.9] 08/01/2019 Thrombocytopenia (HCC) [D69.6] 08/01/2019 Abnormal echocardiogram [R93.1] 08/01/2019 Elevated troponin [R77.8] 08/01/2019 Encounter Status:Closed by BROOKLYNN PABON MA on 07/30/20 [facility] Summary Purpose Family History No Family History Records Found Advance Directives No Advanced Directives Records Found Additional Source Comments (unrecognized sect ion and content) No Status Records Found INFORMATION SOURCE (unrecogn ized section and content) FOR RECORDS PERTAINING TO PATIENTS WHO ARE OR HAVE BEEN ENROLLED IN A CHEMICAL DEPENDENCY/SUBSTANCEABUSE PROGRAM, SOME INFORMATION MAY BE OMITTED. This clinical summary was aggregated from multiple sources. Caution should be exercised in using it in the provision of clinical care. This summary normalizes information from multiple sources, and as a consequence, information in this document may materially change the coding, format and clinical context of patient data. In addition, data may be omitted in some cases. CLINICAL DECISIONS SHOULD BE BASED ON THE PRIMARY CLINICAL RECORDS. [facility]. provides no warranty or guarantee of the accuracy or completeness of information in this document.
== END 2023-06-03 16:43 | disposition home or self-care (01) ==
PROVIDERS: Physician Assistant; Emergency Provider Emergency Medicine; PCP Family Medicine; Visit Provider Emergency Medicine
DX: I11.0 Hypertensive heart disease with heart failure (principal); I50.9 Heart failure, unspecified; I25.10 Atherosclerotic heart disease of native coronary artery without angina pectoris; I25.2 Old myocardial infarction; E78.00 Pure hypercholesterolemia, unspecified; Z95.1 Presence of aortocoronary bypass graft; Z95.810 Presence of automatic (implantable) cardiac defibrillator; Z86.74 Personal history of sudden cardiac arrest; Z79.82 Long term (current) use of aspirin; Z79.899 Other long term (current) drug therapy; Z87.891 Personal history of nicotine dependence
CPT/HCPCS: 71046; 80048; 83880; 84484; 85025; 93005; 96374; 99284; A4216; J1940

== ENCOUNTER → 2023-07-01 | Outpatient (CLI) | payer MEDICARE, OTHER, SELFPAY ==
[2023-07-01 11:31] LABS: Anion Gap 4 (5-15); BUN 39 mg/dL (7-18); BUN/Creat Ratio 21.8 RATIO (10-20); Chloride 114 mmol/L (98-107); Creatinine, Serum 1.79 mg/dL (0.70-1.30); EST Glomerular Filtration Rate 39 mL/min (>60); Est Glom Filt Rate - Afr Amer 47 mL/min (>60); Glucose 93 mg/dL (74-106); Potassium 4.9 mmol/L (3.5-5.1); Sodium Level 140 mmol/L (136-145)
== END | disposition home or self-care (01) ==
LOC: LAB 09:07
PROVIDERS: PCP Family Medicine; Referring Provider Physician Assistant Medical; Visit Provider Physician Assistant Medical
DX: I50.9 Heart failure, unspecified (principal)
CPT/HCPCS: 36415; 80048

== ENCOUNTER → 2024-02-28 | Outpatient (CLI) | payer MEDICARE, OTHER, SELFPAY ==
--- NOTE | 2024-02-28 08:40 | VDUE_ITS ---
Reason For Study: Pain LUE Right Proximal Left Proximal Right subclavian vein is spontaneous, widely Left jugular vein is spontaneous, widely patent, phasic, with no intraluminal patent, phasic, with no intraluminal echogenicity noted. echogenicity noted. Left subclavian vein is spontaneous, widely patent, phasic, with no intraluminal echogenicity noted. Left Arm Left axillary vein is spontaneous, patent, phasic, competent, compressible and demonstrates augmentation. Left brachial vein is compressible. Left cephalic vein is compressible. Left basilic vein is compressible. Left Lower Arm Left radial vein is compressible. Left ulnar vein is compressible. VL/Venous Duplex US, Unilateral Interpretation Summary Deep veins of the left upper extremity are patent and compressible segmentally. There is no evidence of deep vein thrombosis. Superficial veins of the left upper extremity are patent and compressible segme ntally. There is no evidence of superficial vein thrombosis. Ordering Physician: Renée Mena Referring Physician: Grayson Gentile Performed By: Ashely Mixon, [place], RVT ???
--- NOTE | 2024-02-28 08:40 | ADUUE_ITS ---
Reason For Study: Decaresed Left Radial Pulse LEFT Left Subclavian velocity = 103 cm/sec. Left Axillary velocity = 78 cm/sec. Left Brachial velocity = 94 cm/sec. Left Radial velocity = 48 cm/sec. Left Ulnar velocity = 91 cm/sec. VL/US Art Duplex Unilat UP Extrem Interpretation Summary Patent left upper extremity arteries with normal velocities and waveforms throu ghout with no evidence of stenosis/occlusion. Ordering Physician: Renée Mena Referring Physician: Grayson Gentile Performed By: Ashely Mixon, [place], RVT
== END | disposition home or self-care (01) ==
LOC: CVS 08:39
PROVIDERS: PCP Family Medicine; Referring Provider Physician Assistant Medical; Visit Provider Physician Assistant Medical
DX: R09.89 Other specified symptoms and signs involving the circulatory and respiratory systems (principal); R20.0 Anesthesia of skin; R20.2 Paresthesia of skin; M79.602 Pain in left arm
CPT/HCPCS: 93931; 93971

== ENCOUNTER → 2024-07-13 | Outpatient (CLI) | payer MEDICARE, OTHER, SELFPAY ==
[2024-07-13 11:57] LABS: Erythrocyte Sedimentation Rate 21 mm/hr (0-20)
[2024-07-13 12:01] LABS: Absolute Lymphocyte Count 1.25 X10^3/uL (0.83-4.51); Absolute Neutrophil Count 3.1 X10^3/uL (2.0-7.7); Basophil# 0.04 X10^3/uL; Basophil% 0.8 % (0-1); Eosinophil# 0.12 X10^3/uL; Eosinophils% 2.4 % (0-5); Hematocrit 36.6 % (40-54); Lymphocyte # 1.25 X10^3/ul (0.83-4.51); Lymphocyte % 25.2 % (19-41); Mean Corp Hgb Conc 32.8 g/dL (32-36); Mean Corpuscular Hgb 27.9 pg (27.0-32.0); Mean Corpuscular Volume 85.1 fL (80-94); Monocyte# 0.44 X10^3/uL; Monocyte% 8.9 % (0-10); NRBC Flagged by Analyzer 0 % (0-5); Neutrophil % 62.3 % (47-70); Platelet Count 132 K/mm3 (150-450); RBC Distribution Width CV 15.7 % (11.6-14.6); RBC Distribution Width SD 48.6 fl (35.1-43.9)
[2024-07-13 13:15] LABS: ALB/GLOB Ratio 0.9 RATIO (0.9-2.4); AST(SGOT) 18 U/L (<=37); Alanine Aminotransfer ALT/SGPT 8 U/L (<=46); Albumin, Serum 3.8 g/dL (3.4-4.8); Alkaline Phosphatase 70 U/L (40-129); Anion Gap 10 (5-15); BUN 29 mg/dL (4-19); Calcium,Total 8.8 mg/dL (7.6-11.0); Carbon Dioxide 22.9 mmol/L (21.0-32.0); Chloride 109 mmol/L (98-108); Cholesterol 149 mg/dL (<=200); Creatinine, Serum 1.69 mg/dL (0.70-1.20); EST Glomerular Filtration Rate 40 (>60); Globulin 4.1 g/dL (2.2-4.2); Glucose 101 mg/dL (70-99); High Density Lipoprotein 47 mg/dL; Low Density Lipoprotein Calc. 94 mg/dL; Potassium 4.5 mmol/L (3.3-5.1); Protein, Total 7.9 g/dL (5.9-8.4); Sodium Level 141 mmol/L (133-145); Triglycerides 42 mg/dL; Very Low Density Lipoprotein 8 mg/dL (5-40)
== END | disposition home or self-care (01) ==
LOC: LAB 11:09
PROVIDERS: PCP Family Medicine; Referring Provider Physician Assistant Medical; Visit Provider Physician Assistant Medical
DX: M79.89 Other specified soft tissue disorders (principal); I25.810 Atherosclerosis of coronary artery bypass graft(s) without angina pectoris; I25.5 Ischemic cardiomyopathy; I10 Essential (primary) hypertension; Z95.1 Presence of aortocoronary bypass graft; Z95.810 Presence of automatic (implantable) cardiac defibrillator
CPT/HCPCS: 36415; 80053; 80061; 84443; 85025; 85652; 86140

== ENCOUNTER 2024-08-07 12:48 | Emergency (ER) | payer MEDICARE, OTHER, SELFPAY ==
[2024-08-07 12:50] VITALS: BP 166/81; PULSE 68; RESP 19; TEMP 36.7; O2SAT 100; BMI 29.3
--- NOTE | 2024-08-07 13:30 | CT_ITS ---
PROCEDURE: CHEST WITHOUT CONTRAST 08/07/2024 REASON FOR EXAM: (L) POSTERIOR LATERAL MID RIB TRAUMA TECHNIQUE: Chest CT without contrast. Coronal and Sagittal reconstruction series were provided. One or more dose reduction techniques were used (e.g., Automated exposure control, adjustment of the mA and/or kV according to patient size, use of iterative reconstruction technique RADIATION DOSE SUMMARY: DLP: 839.16 mGycm COMPARISON: Chest x-ray dated June 03, 2023 FINDINGS: Hardware: Sternotomy wires are noted. Lymph nodes: There is no visible pathologic adenopathy. Heart and Vasculature: Cardiac wires are visible. Cardiomegaly is noted. Coronary artery calcifications are present. The ascending aorta is dilated to 4.4 cm in AP diameter. The main pulmonary artery is dilated to 3.6 cm, pulmonary hypertension range. Lungs and Airways: There is atelectasis or fibrosis in the right and left lung base. There is a scar like density at the right lung base, measuring 0.7 cm, image 114/137. Pleura: There is pleural thickening with a trace left effusion. There is no pneumothorax. Upper Abdomen: There is a 1.5 cm left adrenal nodule, Hounsfield units = 30, does not meet the criteria of a benign adrenal adenoma, image 130/137. Bones: There is a minimally displaced fracture of the posterior 3rd rib, image 26/137, minimally displaced fracture of the 4th rib, image 34/137, nondisplaced fracture of the 10th rib at the paraspinal region, image 88/137, and in the mid posterior aspect, image 100/137. CT/Chest without Contrast IMPRESSION: The ascending aorta is dilated to 4.4 cm in AP diameter. The main pulmonary artery is dilated to 3.6 cm, pulmonary hypertension range. There is atelectasis or fibrosis in the right and left lung base. There is a scar like density at the right lung base, measuring 0.7 cm, image 11 4/137. Follow-up is recommended, per ACR guidelines. There is a 1.5 cm left adrenal nodule, Hounsfield units = 30, does not meet the criteria of a benign adrenal adenoma, image 130/137. Multiphasic contrast CT or MRI with in and out of phase sequences cou ld be helpful for further characterization. There is a minimally displaced fracture of the posterior 3rd rib, image 26/137, minimally displaced fracture of the 4th rib, image 34/137, nondisplaced fracture of the 10th rib at the paraspinal region, i mage 88/137, and in the mid posterior aspect, image 100/137. these fractures appear acute. Critical results were discussed with Dr. Spencer by Dr. Aldana at the time o f dictation. Reading Location: [facility]
--- NOTE | 2024-08-07 13:56 | EX.ED.GENINJ ---
HPI History of Present Illness Chief Complaint: Chest Other Informant: patient Narrative Narrative: Patient states that several days ago he was on a stepladder investigating a leak on his window when one of the legs of the stepladder sunken to the ground he lost his balance and fell. States he struck his posterior left ribs on the stepladder. He has not had any shortness of breath hemoptysis hematuria since. No abdominal pain. No leg symptoms. He states he has not seen any bruising. He continues to have some discomfort and wanted his ribs evaluated for possible fracture. No headache head injury or neck pain. [facility] Medical History (Updated 08/07/24 @ 14:[address] 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 myocardial infarction HTN (hypertension) Ischemic cardiomyopathy Atherosclerosis of coronary artery bypass graft(s) without angina pectoris Home Medications ?Medication ?Instructions ?Recorded ?Last Taken ?Type aspirin 81 mg chewable tablet 81 mg PO DAILY@0800 01/10/13 01/10/13 15:00 History spironolactone 25 mg tablet 25 mg PO DAILY #90 tabs 07/11/24 Unknown Rx carvedilol 12.5 mg tablet 12.5 mg PO BID #180 tabs 07/13/24 Unknown Rx furosemide 40 mg tablet (Lasix) 40 mg PO DAILY #90 tabs 07/13/24 Unknown Rx lisinopril 5 mg tablet 5 mg PO QDAY #90 tabs 07/13/24 Unknown Rx Allergy/AdvReac Type Severity Reaction Status Date / Time Pdfqoik-Jow-Rti Reductase AdvReac numbness, Verified 08/07/24 12:49 Inhibitor myalgias Family History Father CAD (coronary artery disease) Heart disease Surgical History History of bilateral cataract extraction ICD (implantable cardioverter-defibrillator), dual, in situ History of left heart catheterization (LHC) Hx of CABG (~01/17/13) Automatic implantable cardiac defibrillator in situ (01/23/13) Social History Smoking Status: Former smoker alcohol intake: current alcohol intake frequency: a few times a week Alcohol type: beer and wine substance use type: does not use caffeine: Yes Type: coffee what type of physical activity do you participate in: walking and bicycling frequency: 3-4 times per week duration: 15-30 minutes/day seatbelt use: always do you feel safe at home: Yes ROS ROS ED Constitutional Constitutional ED: Denies chills, fever(s) or weight loss Eyes Eyes: Denies change in vision or diplopia ENT ENT ED: Denies ear pain, rhinorrhea or sore throat Cardiovascular Cardiovascular: Reports other Details: Rib pain ; Denies chest pain, orthopnea, palpitations or racing heartbeat Respiratory/Chest Respiratory/Chest: Denies cough, dyspnea or orthopnea Gastrointestinal Gastrointestinal: Denies abdominal pain, diarrhea, nausea or vomiting Genitourinary Genitourinary ED: Denies dysuria, hematuria or urinary frequency Musculoskeletal Musculoskeletal: Reports back pain; Denies arthralgias, myalgias or neck pain Integumentary Denies abscess or rash Neurologic Neurologic: Denies headache(s) or weakness Psychiatric Psychiatric: Denies anxiety, depression, suicidal ideation or suicidal thoughts Endocrine Endocrinology: Denies polydipsia, polyphagia or polyuria Allergic/Immunologic Allergic/Immunologic ED: Denies mouth swelling, tongue swelling or urticaria EXAM Physical Exam Const Vital Signs: 08/07/24 12:50 Temperature 98.1 F Temperature Source Oral Pulse Rate 68 Respiratory Rate 19 H Blood Pressure 166/81 H Blood Pressure Mean 109 Pulse Ox 100 Oxygen Delivery Method Room Air Positive well nourished and well developed General Appearance ED: well developed HEENT Reports normocephalic, head/scalp atraumatic and moist mucous membranes Eyes PERRL and EOMs intact bilaterally Neck full ROM, no lymphadenopathy, supple and no JVD Chest Wall Chest Narrative: There is an area of green ecchymosis around rib 4 posterior lateral. There is no subcutaneous emphysema or crepitance felt with palpation. Resp normal respiratory effort and clear to auscultation bilaterally Cardio regular rate, regular rhythm and no murmurs GI normal to inspection, nondistended, normoactive bowel sounds and non-tender Palpation: soft Back/Spine no CVA tenderness and normal ROM Extremity normal to inspection General Extremety ED: Negative for edema General Extremity: Negative for edema Neuro oriented x3 and CN's II-XII intact bilaterally Sensorium / Orientation: alert Motor Exam: strength 5/5 throughout Psych mental status grossly normal Mood & Affect: Negative for depressed or tearful Skin no rashes or lesions noted and no wounds MDM MDM MDM Narrative Medical decision making narrative: Differential diagnosis includes but not limited to rib fracture rib contusion soft tissue contusion thoracic myofascial strain pulmonary contusion pneumothorax pleural effusion/hemothorax CT of the chest was obtained without contrast. This demonstrates 2 nondisplaced ribs fractures of ribs 3 and 4. No large pneumothorax or significant hemothorax is seen. Please see radiologist read for full details also noted was adrenal and lung nodules. The above findings were discussed with the patient. Patient to follow-up with his doctor regarding these findings. Continue home care. He is comfortable with Tylenol and Motrin for pain control History & Record Review Discussion w/independent historian: Patient Radiography Diagnostic Testing: Clinical Impression(s) from Imaging Studies Chest CT 08/07/24 13:30 IMPRESSION: The ascending aorta is dilated to 4.4 cm in AP diameter. The main pulmonary artery is dilated to 3.6 cm, pulmonary hypertension range. There is atelectasis or fibrosis in the right and left lung base. There is a scar like density at the right lung base, measuring 0.7 cm, image 114/137. Follow-up is recommended, per ACR guidelines. There is a 1.5 cm left adrenal nodule, Hounsfield units = 30, does not meet the criteria of a benign adrenal adenoma, image 130/137. Multiphasic contrast CT or MRI with in and out of phase sequences could be helpful for further characterization. There is a minimally displaced fracture of the posterior 3rd rib, image 26/137, minimally displaced fracture of the 4th rib, image 34/137, nondisplaced fracture of the 10th rib at the paraspinal region, image 88/137, and in the mid posterior aspect, image 100/137. these fractures appear acute. Critical results were discussed with Dr. Spencer by Dr. Aldana at the time of dictation. Reading Location: [facility] Discharge Plan Triage Chief Complaint: Chest Other ED Provider: Mynor Spencer Dx/Rx/DC Orders Clinical Impression: Multiple rib fractures, Lung nodule, Adrenal nodule Instructions: ED Rib Fracture, ED Pulmonary Nodule, Solitary Prescriptions: No Action lisinopril 5 mg tablet 5 mg PO QDAY Qty: 90 3RF furosemide [Lasix] 40 mg tablet 40 mg PO DAILY Qty: 90 3RF carvedilol 12.5 mg tablet 12.5 mg PO BID Qty: 180 3RF aspirin 81 MG tablet,chewable 81 mg PO DAILY@0800 Patient Comments: BLOOD THINNER spironolactone 25 mg tablet 25 mg PO DAILY Qty: 90 3RF Primary Care Provider: Care Physician,No Primary Referrals: Grayson Gentile MD [Non-Staff] - (Call to arrange follow-up in 1 to 2 weeks) Activity Restrictions/Additional Instructions: It was noted that she had fractures of the 3rd and 4th rib as well as the 10th. These will take around 6 weeks to heal. They will slowly and progressively get better. It was also noted that she had a nodule in your lung in your adrenal gland. Please let your doctor know that you had a CT scan and they can further evaluate these nodules. Print Language: Welsh Disposition Disposition: Home, Self Care
[2024-08-07 14:17] VITALS: BP 144/86; PULSE 64; RESP 16; TEMP 37.1; O2SAT 98
== END 2024-08-07 14:18 | disposition home or self-care (01) ==
PROVIDERS: Emergency Provider Emergency Medicine; Visit Provider Emergency Medicine
DX: S22.49XA Multiple fractures of ribs, unspecified side, initial encounter for closed fracture (principal); I25.10 Atherosclerotic heart disease of native coronary artery without angina pectoris; E27.8 Other specified disorders of adrenal gland; E78.00 Pure hypercholesterolemia, unspecified; Z87.891 Personal history of nicotine dependence; R91.1 Solitary pulmonary nodule; W11.XXXA Fall on and from ladder, initial encounter; Y93.89 Activity, other specified; I10 Essential (primary) hypertension; I25.2 Old myocardial infarction; Z79.82 Long term (current) use of aspirin; Z79.899 Other long term (current) drug therapy; Z95.810 Presence of automatic (implantable) cardiac defibrillator; Z98.41 Cataract extraction status, right eye; Z98.42 Cataract extraction status, left eye
CPT/HCPCS: 71250; 99282; A4216